=== PATIENT | female | born 1950 | race Caucasian/White ===

== ENCOUNTER → 2018-03-03 08:59 | Outpatient (CLI) | payer MEDICARE, OTHER, SELFPAY ==
--- NOTE | 2018-03-03 09:04 | BI_ITS ---
MAMMOGRAPHY - BILATERAL SCREENING REASON FOR EXAM: Female, 67 years old. Routine annual screening examination. PERTINENT HISTORY: Aunt with breast cancer. TECHNIQUE: Digital bilateral breast mary (3D mammographic acquisition) in the CC and MLO projections. 2-D mediolateral oblique (MLO) and craniocaudad (CC) views of both breasts were obtained. CAD: Full Field Digital Mammography with Computer Added Detection was performed. COMPARISON: Comparison is made with prior study dated February 24, 2017 and February 24, 2016. FINDINGS: Breast Composition: The breasts are heterogeneously dense, which may obscure small masses. There are no dominant masses or suspicious calcifications. Stable benign-appearing bilateral axillary lymph nodes. Stable 3.4 mm well-defined nodule in the upper lateral portion of the left breast. No other significant abnormalities are identified. There has been no significant change since the prior study. BI/SCREENING MAMM (CAD), BILAT IMPRESSION: Stable bilateral screening mammogram. Yearly follow-up mammogram recommended. (A) ASSESSMENT CATEGORY: BIRADS Category 2: Benign. A letter regarding these results will be sent to the patient by the facility within 30 days. Approximately 10% of breast cancers are not detected by mammography. A normal mammogram should not delay biopsy of a clinically suspicious abnormality. [id number] Electronically Signed: Ru Hogue MD at 10:45 EDT Tel [phone], Service support ,
== END ==
PROVIDERS: Family Provider Internal Medicine; PCP Internal Medicine; Visit Provider Internal Medicine
DX: Z12.31 Encounter for screening mammogram for malignant neoplasm of breast (principal)
CPT/HCPCS: 77063; 77067

== ENCOUNTER 2018-06-17 14:03 | Inpatient (IN) | payer MEDICARE, OTHER, SELFPAY ==
[2018-06-17] VITALS (11 sets, daily range): BP systolic 135–156; BP diastolic 61–91; PULSE 58–90; RESP 14–25; TEMP 36.5–36.8; O2SAT 96–100; BMI 28.1; BMI 27.0
--- NOTE | 2018-06-17 14:30 | EKG12_ITS ---
Test Reason : SYCOPE Blood Pressure : / mmHG Vent. Rate : 070 BPM Atrial Rate : 070 BPM P-R Int : 140 ms QRS Dur : 074 ms QT Int : 326 ms P-R-T Axes : 069 031 072 degrees QTc Int : 352 ms Normal sinus rhythm ST & T wave abnormality, consider inferolateral ischemia Abnormal ECG Confirmed by MYLENE VALERIO ([id number]), graphics editor SATYA SEO ([id number]) on 06/21/2018 2:25:25 PM Referred By: BRIDGET Confirmed By:MYLENE VALERIO
--- NOTE | 2018-06-17 14:32 | ED.VISSUMM ---
- ER Visit Summary Date of Service: 06/17/18 Chief Complaint: Weakness History of Present Illness: The patient is a 67 F who complains of weakness all over. She states it started today. She did have an episode yesterday. She was standing in the yard and felt very weak and collapsed. She woke up this morning was able to do some physical activity started to get worse. She denies any other symptoms except extreme fatigue. She now has some lower abdominal pain. She denies any dysuria. She has a mild headache at this time. Did not feel diaphoretic. No chest pain or shortness of breath. Does not feel like it is hard to breathe. No focal weakness, paresthesias. No vision changes. Physical Examination: Vital signs reviewed. HEENT exam unremarkable. Heart is regular rate and rhythm without murmurs. Lungs are clear to auscultation. Abdomen is soft and nontender. Extremities reveal no edema. Skin exam normal. Neurologic exam shows she is alert and oriented ?2. She does not know the month. Her NIH is 1 for the same Test Results: EKG is sinus rhythm with rate 70. Labs are all normal. Chest x-ray reveals chronic changes. CT scan of the head per my interpretation reveals no acute findings. Radiology read is pending Emergency Department Course and Treatment: The patient has slow speech I am not quite sure what this is about. I think we need to rule out stroke is a possibility. The PCP agrees with this. Patient was discussed with the hospitalist for admission. Patient will be started on aspirin as she does not take one at home Treatment Plan: [] Disposition: Admit Impression: Weakness, slow speech This note was generated with Guroo dictation software. It may contain incorrect words, spelling, and punctuation that were not noted in review of the chart prior to signing ED Disposition - Plan for ED Patient: Chief Complaint: Weakness Referrals: May Caldwell DO [Primary Care Provider] -
[2018-06-17 14:55] LABS: Absolute Lymphocyte Count 2.06 X10^3/ul (0.83-4.51); Absolute Neutrophil Count 6.1 X10^3/uL (2.0-7.7); Basophil# 0.04 X10^3/uL; Basophil% 0.4 % (0-1); Eosinophil# 0.14 X10^3/uL; Eosinophils% 1.6 % (0-5); Hematocrit 41.7 % (37-47); Hemoglobin 14.3 g/dl (12.0-15.0); Lymphocyte # 2.06 X10^3/ul (4.0); Lymphocyte % 23.1 % (19-41); Mean Corp Hgb Conc 34.3 g/gl (32-36); Mean Corpuscular Hgb 30.1 pg (27.0-32.0); Mean Corpuscular Volume 87.8 fL (81-99); Mean Platelet Vol. 10.9 fl (6.2-12.0); Monocyte# 0.57 X10^3/uL; Monocyte% 6.4 % (0-10); Neutrophil # 6.11 X10^3/uL (2.7-7.7); Neutrophil % 68.4 % (47-70); Platelet Count 219 K/mm3 (150-450); RBC Distribution Width CV 13.6 % (11.6-14.6); RBC Distribution Width SD 43.5 fl (35.1-43.9); Red Blood Count 4.75 M/mm3 (4.2-5.4); White Blood Count 8.9 K/mm3 (4.4-11.0)
[2018-06-17 15:00] LABS: POSITIVE COUNT NO; POSITIVE DIFFERENTIAL NO; POSITIVE MORPHOLOGY NO
[2018-06-17 15:01] LABS: Partial Thromboplast Time 27.2 Seconds (24.1-36.2); Prothrombin Time (Protime)PT. 12.9 SECONDS (11.7-14.9)
[2018-06-17 15:12] LABS: Anion Gap 13 (5-15); BUN 15 mg/dL (7-18); BUN/Creat Ratio 16.4 RATIO (10-20); Calcium,Total 10.2 mg/dL (8.5-10.1); Chloride 107 mmol/L (98-107); Creatinine, Serum 0.91 mg/dL (0.55-1.02); EST Glomerular Filtration Rate 65 mL/min (>60); Est Glom Filt Rate - Afr Amer 78 mL/min (>60); Estimated Creatinine Clearance 50.38 ml/min; Glucose 98 mg/dL (74-106); Potassium 3.1 mmol/L (3.5-5.1); Sodium Level 141 mmol/L (136-145)
[2018-06-17 16:01] LABS: Bedside Glucose 85 mg/dL (70-110)
--- NOTE | 2018-06-17 16:51 | NURSING ---
PCU R/O STROKE KOTSONIS
[2018-06-17] MEDS: Aspirin 325 MG Tablet PO (17:15)
--- NOTE | 2018-06-17 20:20 | PCM.HP.STD ---
Problem List (1) HTN (hypertension) Status: Chronic (2) HLD (hyperlipidemia) Status: Chronic (3) Weakness Status: Acute (4) Aphasia Status: Acute (5) Hypokalemia Status: Acute History of Present Illness Date of Admission: 06/17/18 Chief Complaint: Weakness and aphasia The patient is a 67 year old F with a h/o significant for HTn and HLD presenting today from her PCP office for aphasia and weakness. She states that yesterday she was working in the yard and felt weak and almost passed out. She went to bed and woke up this morning and felt ok but then around 10 am she felt, weak, unsteady and likeleverything was processing in slow motion. She went to her PCP office around 1 pm and he told her to go to the ER. In the ER she had only an NIH of [address] head was normal. She currently feel well and almost back to her baseline. Past Medical History Past Medical History (Chronic Problems): Chronic Problems HTN (hypertension) (Chronic) HLD (hyperlipidemia) (Chronic) Allergies No Known Allergies Allergy (Verified 06/17/18 14:07) Home Medications: Ambulatory Orders Medication Instructions Recorded Amlodipine [Norvasc] 5 mg PO DAILY 06/17/18 Ascorbic Acid [Vitamin C] 1,000 mg PO DAILY 06/17/18 Calcium Carbonate [Calcium] 500 mg PO DAILY 06/17/18 Cholecalciferol (Vitamin D3) 2,000 unit PO DAILY 06/17/18 [Vitamin D3] Co Q10 200 [Co Q-10] 100 mg PO DAILY 06/17/18 Ibuprofen 200 mg PO PRN PRN 06/17/18 Lactobacillus Combination No.4 1 cap PO DAILY 06/17/18 [Probiotic] Rosuvastatin Calcium [Crestor] 5 mg PO QHS 06/17/18 Triamcinolone Acetonide [Nasacort 1 spray NASAL DAILY 06/17/18 Aq Nasal [place]] Vitamin E 100 unit PO DAILY 06/17/18 Lives: Spouse/ Significant Other Smoking Status: Never smoker Alcohol: None Drugs: None Review of Systems Constitutional: Reports: Weakness. Denies: Chills, Fever, Weight Change HEENT: Denies: Head Aches, Sinus Congestion, Sinus Drainage Cardiovascular: Denies: Chest Pain, Palpitations Respiratory: Denies: Cough, Shortness of breath at rest, Sputum production Gastrointestinal: Denies: Abdominal Pain, Nausea, Vomiting Genitourinary: Denies: Dysuria Musculoskeletal: Denies: Joint Pain, Joint Tenderness Skin: Denies: Rash, Wounds Neurological: Reports: - - slow mentation. Denies: Focal weakness, Numbness, Tingling Psychiatric: Denies: Anxiety, Depression Hematologic/ Lymphatic: Denies: Easy Bruising, Easy Bleeding VTE Information - Inpt Only VTE Present on Admission: No Patient Problems: Active and Suspected Problems Weakness (Acute) Aphasia (Acute) Hypokalemia (Acute) - Physical Exam General: Alert, Oriented x3, Cooperative, No apparent distress HEENT: Atraumatic, EOMI, Normocephalic Oral: Moist Mucosa Neck: Supple, No JVD Lungs: Clear to auscultation, Normal air movement, No rhonchi, No wheeze, No rales Cardiovascular: Regular rate, Regular Rhythm, Normal S1, Normal S2, No murmurs Abdomen: Soft, Non Tender, Non-Distended, No Hepato-splenomegaly Extremities: No edema, Capillary Refill Less than 3 Seconds Skin: No rashes, No breakdown Neurological: Cranial nerves II-XII grossly intact, Motor Exam 5/5 strength throughout, Sensory exam intact to light touch and pain Psych/Mental Status: Normal Affect, Appropriate Vital Signs Temp Pulse Resp BP Pulse Ox 97.7 F L 59 L 16 153/67 H 97 06/17/18 17:37 06/17/18 17:52 06/17/18 17:37 06/17/18 17:37 06/17/18 19:55 Oxygen Delivery Method Room Air Weight: 157 lb 6.561 oz Body Mass Index (BMI) 27.0 Intake and Output for Last 24 Hours 06/15/18 06/16/18 06/17/18 23:59 23:59 23:59 Intake Total 480 / 480 Balance 480 / 480 Assessment/Plan All Active Problems Weakness (Acute) Aphasia (Acute) Hypokalemia (Acute) 1. Weakness/Aphasia (resolved)/HTN/HLD - Will obtain an MRI in the morning as well as an echo - She is on crestor 5 mg at home, no formulary so will start lipitor 80 and she can be discharged on the higher dose of crestor - Start aspirin - Lipid panel pending - PT/OT consulted - Further recs, depending on the MRI and echo 2. Hypokalemia - 3.1 will give 60 meq tonight DVT: Heparin BID Diet: Cardiac Code Visit Inpatient E&M: 52903 Init Hosp L2
[2018-06-17] MEDS: Heparin Injection (Vial) 5,000 UNIT/ML VIAL 5000 UNIT SC (21:16)
[2018-06-17] MEDS: Atorvastatin Calcium 80 MG Tablet PO (21:16)
[2018-06-18] VITALS (7 sets, daily range): BP systolic 130–133; BP diastolic 68–71; PULSE 53–82; RESP 16–18; TEMP 36.7–36.8; O2SAT 95–99; BMI 27.0
[2018-06-18] MEDS: Ibuprofen 200 MG Tablet PO (00:56)
[2018-06-18 06:48] LABS: Absolute Lymphocyte Count 2.03 X10^3/ul (0.83-4.51); Absolute Neutrophil Count 2.5 X10^3/uL (2.0-7.7); Basophil# 0.04 X10^3/uL; Basophil% 0.7 % (0-1); Eosinophils% 5.4 % (0-5); Hematocrit 38.3 % (37-47); Hemoglobin 13.1 g/dl (12.0-15.0); Lymphocyte # 2.03 X10^3/ul (4.0); Lymphocyte % 36.7 % (19-41); Mean Corp Hgb Conc 34.2 g/gl (32-36); Mean Corpuscular Hgb 30.5 pg (27.0-32.0); Mean Corpuscular Volume 89.3 fL (81-99); Mean Platelet Vol. 11.3 fl (6.2-12.0); Monocyte# 0.64 X10^3/uL; Monocyte% 11.6 % (0-10); Neutrophil # 2.51 X10^3/uL (2.7-7.7); Neutrophil % 45.4 % (47-70); Platelet Count 209 K/mm3 (150-450); RBC Distribution Width CV 14.1 % (11.6-14.6); RBC Distribution Width SD 45.7 fl (35.1-43.9); Red Blood Count 4.29 M/mm3 (4.2-5.4); White Blood Count 5.5 K/mm3 (4.4-11.0)
[2018-06-18 06:50] LABS: POSITIVE COUNT NO; POSITIVE DIFFERENTIAL NO; POSITIVE MORPHOLOGY NO
[2018-06-18 07:22] LABS: Anion Gap 9 (5-15); BUN 14 mg/dL (7-18); BUN/Creat Ratio 19.2 RATIO (10-20); Calcium,Total 8.4 mg/dL (8.5-10.1); Chloride 109 mmol/L (98-107); Cholesterol 177 mg/dL (200); Creatinine, Serum 0.73 mg/dL (0.55-1.02); EST Glomerular Filtration Rate 84 mL/min (>60); Est Glom Filt Rate - Afr Amer 101 mL/min (>60); Estimated Creatinine Clearance 45.85 ml/min; Glucose 90 mg/dL (74-106); High Density Lipoprotein 52 mg/dL; Potassium 3.8 mmol/L (3.5-5.1); Sodium Level 143 mmol/L (136-145); Triglycerides 144 mg/dL; Very Low Density Lipoprotein 29 mg/dL (5-40)
[2018-06-18] MEDS: Ascorbic Acid 500 MG Tablet 1000 MG PO (09:07)
[2018-06-18] MEDS: Calcium (Elemental) 500 MG Tablet PO (09:08)
[2018-06-18] MEDS: Aspirin 81 MG TAB.CHEW PO (09:08)
[2018-06-18] MEDS: Heparin Injection (Vial) 5,000 UNIT/ML VIAL 5000 UNIT SC (09:08)
--- NOTE | 2018-06-18 11:06 | CASEMGMT ---
CM INITIAL ASSESSMENT: Home: Patient lives in a one story home with her . HHS/Aides: Denies current or past services. DME: Denies Home Oxygen: Denies Pharmacy: [facility] Advance Directives: , Justino Cano, is medical POA. Patient states these documents are on file. PCP: May Caldwell Specialists: Cries DC Plan: Home, no needs anticipated.
--- NOTE | 2018-06-18 13:00 | PCM.PN.HOSP ---
Subjective: Patient was seen and examined. No new complains. Denies any chest pain, dizziness or SOB. nO acute events on telemetry. Vitals/I&O's: Vital Signs Temp Pulse Resp BP Pulse Ox 98.3 F 63 16 132/71 H 99 06/18/18 08:00 06/18/18 10:55 06/18/18 08:00 06/18/18 08:00 06/18/18 08:00 Oxygen Delivery Method Room Air Weight: 71.4 kg Body Mass Index (BMI) 27.0 Intake and Output for Last 24 Hours 06/16/18 06/17/18 06/18/18 23:59 23:59 23:59 Intake Total 480 / 480 1300 / 1300 Balance 480 / 480 1300 / 1300 General: Alert, Oriented x3, Cooperative, No apparent distress HEENT: Atraumatic, PERRLA, EOMI, Normocephalic Oral: Moist Mucosa Neck: Supple, No JVD, Negative Carotid Bruits Lungs: Clear to auscultation, Normal air movement Cardiovascular: Regular rate, Regular Rhythm, Normal S1, Normal S2, No murmurs Abdomen: Bowel Sounds Present, Soft, Non Tender, Non-Distended, No Hepato-splenomegaly Extremities: No edema, Capillary Refill Less than 3 Seconds Skin: No rashes, No breakdown Musculoskeletal: No Tenderness to Palpation of Joints or Extremities Neurological: Cranial nerves II-XII grossly intact Psych/Mental Status: Normal Affect, Appropriate Laboratory Results 06/18/18 06:14: WBC 5.5, RBC 4.29, Hgb 13.1, Hct 38.3, MCV 89.3, MCH 30.5, MCHC 34.2, RDW 14.1, RDW Differential 45.7 H, Plt Count 209, MPV 11.3, Immature Gran % (Auto) 0.200, Neut % (Auto) 45.4 L, Lymph % (Auto) 36.7, Elliott % (Auto) 11.6 H, Eos % (Auto) 5.4 H, Baso % (Auto) 0.7, Absolute Neuts (auto) 2.5, Absolute Lymphs (auto) 2.03, Total Counted Not Reportable 06/18/18 06:14: Sodium 143, Potassium 3.8, Chloride 109 H, Carbon Dioxide 25.0, Anion Gap 9, BUN 14, Creatinine 0.73, Estim Creat Clear Calc 45.85, Est GFR (MDRD) Af Amer 101, Est GFR (MDRD) Non-Af 84, BUN/Creatinine Ratio 19.2, Glucose 90, Calcium 8.4 L, Triglycerides 144, Cholesterol 177, LDL Cholesterol 96, VLDL Cholesterol 29, HDL Cholesterol 52 Current Medications Ascorbic Acid (Vitamin C) 1,000 mg PO DAILY [facility] Last Admin: 06/18/18 09:07 Dose: 1,000 mg Aspirin (Aspirin, Baby) 81 mg PO DAILY@0800 [facility] Last Admin: 06/18/18 09:08 Dose: 81 mg Atorvastatin Calcium (Lipitor) 80 mg PO QHS [facility] Last Admin: 06/17/18 21:16 Dose: 80 mg Calcium Carbonate (Os-Navarro 500) 500 mg PO DAILYCM [facility] Last Admin: 06/18/18 09:08 Dose: 500 mg Cholecalciferol (Vitamin D) 2,000 unit PO DAILY [facility] Last Admin: 06/18/18 09:07 Dose: 2,000 unit Fluticasone Propionate (Flonase Nasal [place]) 1 spray NASAL DAILY [facility] Last Admin: 06/18/18 09:08 Dose: Not Given Heparin Sodium (Porcine) (Heparin Na) 5,000 unit SC Q12 [facility] Last Admin: 06/18/18 09:08 Dose: 5,000 unit Ibuprofen (Motrin) 200 mg PO Q4H PRN PRN PRN Reason: PAIN Last Admin: 06/18/18 00:56 Dose: 200 mg Lactobacillus Acidophilus (Acidophilus) 1 tablet PO DAILY [facility] Last Admin: 06/18/18 09:07 Dose: 1 tablet Magnesium Hydroxide (Milk Of Magnesia) 30 ml PO DAILY PRN PRN Reason: Constipation Sodium Chloride () 5 - 30 ml IV UD PRN PRN Reason: SALINE FLUSH Medical Necessity - Tobacco Use Smoking Status: Never smoker Assessment/Plan All Active Problems Weakness (Acute) Aphasia (Acute) Hypokalemia (Acute) 1. Syncope, aphasia, acute stroke ruled out with MRI, 2D echo unremarkable, patient will be discharged on aspirin, will get a 30 day event monitor to follow-up with cardiology, Dr. Johnson 2. Hypokalemia, replace, recheck in the outpatient 3. Hypertension, controlled, continue home medication 4. Hyperlipidemia, on statin 5. DVT PPx - On heparin SC Code Visit Inpatient E&M: 92438 Subs Hosp L2
--- NOTE | 2018-06-18 13:28 | PCM.DC ---
- Discharge Diagnoses Current Active Problems: Current Active and Chronic Problems HTN (hypertension) (Chronic) HLD (hyperlipidemia) (Chronic) Weakness (Acute) Aphasia (Acute) Hypokalemia (Acute) You will use the following diet at home:: Cardiac Your food should be the consistency of: Regular Your liquids should be the consistency of: Regular/Thin Discharge Activity: Return to Normal Activity Additional Instructions: You will be discharged with a 30 day event monitor. You should follow-up with Dr. Johnson in 2-4 weeks. You will need repeat blood work in 1 week. Follow-up with your PCP within 1-2 weeks. Continue to keep yourself hydrated. You can take a baby aspirin 81 mg a day for primary stroke prevention. Keep being active and follow a heart healthy diet. Allergies/Adverse Reactions: Allergies No Known Allergies Allergy (Verified 06/17/18 14:07) Medications to take at Discharge Amlodipine [Norvasc] 5 mg PO DAILY 06/17/18 Ascorbic Acid [Vitamin C] 1,000 mg PO DAILY 06/17/18 Calcium Carbonate [Calcium] 500 mg PO DAILY 06/17/18 Cholecalciferol (Vitamin D3) [Vitamin D3] 2,000 unit PO DAILY 06/17/18 Co Q10 200 [Co Q-10] 100 mg PO DAILY 06/17/18 Ibuprofen 200 mg PO PRN PRN 06/17/18 Lactobacillus Combination No.4 [Probiotic] 1 cap PO DAILY 06/17/18 Rosuvastatin Calcium [Crestor] 5 mg PO QHS 06/17/18 Triamcinolone Acetonide [Nasacort Aq Nasal [place]] 1 spray NASAL DAILY 06/17/18 Vitamin E 100 unit PO DAILY 06/17/18 Primary Care Physician: May Caldwell DO [Primary Care Provider] - Please follow up with your Primary Care Physician in: within 2 weeks Test Results: Test results from this visit will be discussed in further detail at your follow-up appointment, if applicable. Please Follow Up With: Eduardo Johnson MD When: in 2-4 weeks Proposed Discharge Date: 06/18/18
--- NOTE | 2018-06-18 13:35 | PCM.DC.SUM ---
Discharge Date and Diagnosis Date of Admission: 06/17/18 Date of Discharge: 06/18/18 - Primary Discharge Diagnosis Active and Suspected Problems Weakness (Acute) Aphasia (Acute) Hypokalemia (Acute) Syncope - Secondary Discharge Diagnosis Chronic Problems HTN (hypertension) (Chronic) HLD (hyperlipidemia) (Chronic) Hospital Course and Treatment Imaging Results: Clinical Impression(s) from Imaging Studies Brain CT 06/17/18 14:30 IMPRESSION: No acute intracranial or calvarial abnormality. Electronically Signed: Steven Queen DO at 16:53 EDT Tel [phone], Service support , Chest X-Ray 06/17/18 15:32 IMPRESSION: No acute cardiopulmonary disease or interval change. Electronically Signed: Steven Queen DO at 16:05 EDT Tel [phone], Service support , Brain MRI 06/17/18 17:27 IMPRESSION: No evidence of infarct or hemorrhage. Electronically Signed: Obinna Squires MD at 0:34 EDT Tel , Service support , None Operations: None Procedures: 2-D Echocardiogram Summary of Care Provided: The patient is a 67 year old F with past medical history of hypertension, hyperlipidemia, admitted on 06/17/2018 from her primary care office with increasing weakness. Patient had had a syncopal episode a day before admission. She was standing outside and observing her and son work in the garden. She is said to have passed out for a few minutes. She woke up feeling weak. Rested for the rest of the day. The next day, she woke up and felt weak and unsteady and felt like everything was being processed in slow motion. She went to see her primary care doctor later in the afternoon and was asked to go to the emergency room. In the emergency room her NIH SS was 1, CT scan was negative. Patient was admitted to telemetry bed and monitored with no acute events. MRI of the brain was negative. 2D echo was unremarkable. Patient's repeat blood work showed replaced potassium. Patient was discharged with a 30 day event monitor which was placed on 06/20/2018 to follow-up with Dr. Johnson to read( per patient's request). Discharge Diet: Low fat/ Low Cholesterol, 2000 mg Sodium Diet Discharge Activity: Return to Normal Activity Home Medications: Medications to take at Discharge Amlodipine [Norvasc] 5 mg PO DAILY 06/17/18 Ascorbic Acid [Vitamin C] 1,000 mg PO DAILY 06/17/18 Calcium Carbonate [Calcium] 500 mg PO DAILY 06/17/18 Cholecalciferol (Vitamin D3) [Vitamin D3] 2,000 unit PO DAILY 06/17/18 Co Q10 200 [Co Q-10] 100 mg PO DAILY 06/17/18 Ibuprofen 200 mg PO PRN PRN 06/17/18 Lactobacillus Combination No.4 [Probiotic] 1 cap PO DAILY 06/17/18 Rosuvastatin Calcium [Crestor] 5 mg PO QHS 06/17/18 Triamcinolone Acetonide [Nasacort Aq Nasal [place]] 1 spray NASAL DAILY 06/17/18 Vitamin E 100 unit PO DAILY 06/17/18 Other Amb Orders: Cardiac Holter Monitor, Set-Up [[facility]] Location: None Selected Primary Care Physician: May Caldwell DO [Primary Care Provider] - Please follow up with your Primary Care Physician in: within 2 weeks Please Follow Up With: Eduardo Johnson MD When: in 2-4 weeks Disposition: Home Minutes spent on discharge:: 40 Patient Condition:: Stable Medical Necessity - Tobacco Use Smoking Status: Never smoker Meaningful Use Info Meaningful Use Diagnoses (Choose all that apply): None applicable Code Visit OBSV E&M: 97896 Observation care discharge
== END 2018-06-18 14:06 | disposition home or self-care (01) | DRG 948 ==
LOC: ED 15:19 → PCU 17:14
PROVIDERS: Admitting Provider Family Medicine; Emergency Provider Emergency Medicine; Family Provider Internal Medicine; PCP Internal Medicine; Visit Provider Internal Medicine
DX: R53.1 Weakness (principal); R47.01 Aphasia; I10 Essential (primary) hypertension; E78.5 Hyperlipidemia, unspecified; E87.6 Hypokalemia; R55 Syncope and collapse
CPT/HCPCS: 36415; 70450; 70551; 71045; 80048; 80061; 82962; 84484; 85025; 85610; 85730; 92523; 93005; 93306; 99285; J7030; A4216

== ENCOUNTER → 2018-06-24 12:50 | Outpatient (CLI) | payer MEDICARE, OTHER, SELFPAY | PROVIDERS: Family Provider Internal Medicine; PCP Internal Medicine; Visit Provider Internal Medicine | DX: L74.9 Eccrine sweat disorder, unspecified (principal) ==

== ENCOUNTER → 2018-06-30 10:05 | Outpatient (CLI) | payer MEDICARE, OTHER, SELFPAY ==
--- NOTE | 2018-06-30 10:10 | MRI_ITS ---
STUDY: MRI BRAIN WITH CONTRAST REASON FOR EXAM: Female, 67 years old. syncope; follow up to non contrast mri. TECHNIQUE: Standardized multiplanar fat and water weighted pulse sequences were obtained. 7 ml of Gadavist contrast material was administered intravenously for the contrast portion of the examination. COMPARISON: June 17, 2018 FINDINGS: Normal size of the ventricles and extra-axial spaces for the patient's age. Normal white matter tracts of the supratentorial brain. Normal bilateral basal ganglia. Normal thalami. There is no extra-axial fluid accumulation. Normal midbrain, joel and medulla. Normal cerebellum. Normal basal cisterns. MRI/Brain WITH Contrast IMPRESSION: Unremarkable enhanced MRI of the brain. Electronically Signed: Belén Pa MD at 10:25 EDT Tel , Service support ,
== END ==
PROVIDERS: Family Provider Internal Medicine; PCP Internal Medicine; Visit Provider Internal Medicine
DX: R55 Syncope and collapse (principal)
CPT/HCPCS: 70552; A9585

== ENCOUNTER → 2018-08-18 12:39 | Outpatient (CLI) | payer MEDICARE, OTHER, SELFPAY ==
--- NOTE | 2018-08-18 12:42 | BD_ITS ---
STUDY: DUAL ENERGY X-RAY ABSORPTIOMETRY / DXA REASON FOR EXAM: Female, 67 years old. The patient is postmenopausal. Loss of height. TECHNIQUE: Bone Mineral Density (BMD) measurements of lumbar spine and bilateral hips were obtained. COMPARISON: Comparison is made with prior study dated August 04, 2016. FINDINGS: Lumbar Spine (L1-L4): g/cm2 (1.075) / T-score (-0.9) / Z-score (0.8) Findings are suggestive of normal bone density with a low fracture risk. Left Femur Total: g/cm2 (0.781) / T-score (-1.8) / Z-score (-0.3) Left Femoral Neck: g/cm2 (0.786) / T-score (-1.8) / Z-score (-0.1) Right Femur Total: g/cm2 (0.753) / T-score (-2.0) / Z-score (-0.6) Right Femoral Neck: g/cm2 (0.754) / T-score (-2.0) / Z-score (-0.4) The T-Scores on the most recent prior examination were: Lumbar Spine (L1-L4): There has been worsening of bone density since the previous examination. Left Femur Total: which represents a worsening of 0.4%. Right Femur Total: which represents a worsening of 3.3%. BD/Dexa Bone Density Study IMPRESSION: The patient is considered osteopenic as outlined below according to World Yoni Organization (WHO) criteria with a moderate fracture risk. There has been worsening of bone density since the previous examination. Reference Information: The T-score is the number of standard deviations above or below the standard which is normal for young adults at their peak bone mineral density. The World Health Organization (WHO) interprets the T-scores as follows: Above -1 Normal bone density Between -1 and -2.5 Osteopenia Equal to / or below -2.5 Osteoporosis As a practical clinical guideline, osteopenia may be graded as follows: Mild -1 through -1.5 Moderate -1.6 through -2.0 Severe -2.1 through -2.4 The Z-score is the number of standard deviations above or below age-matched controls. A Z-score of less than -1.5 would be considered abnormal. References: 1. NIH Osteoporosis and Related Bone Diseases http://www.osteo.org 2. International Society for Clinical Densitometry http://www.iscd.org 3. National Osteoporosis Foundation http://www.nof.org Electronically Signed: Ru Hogue MD at 12:26 EST Tel [phone], Service support ,
== END ==
PROVIDERS: Family Provider Internal Medicine; PCP Internal Medicine; Referring Provider Internal Medicine; Visit Provider Internal Medicine
DX: Z78.0 Asymptomatic menopausal state (principal)
CPT/HCPCS: 77080

== ENCOUNTER → 2018-12-21 06:58 | Outpatient (CLI) | payer MEDICARE, OTHER, SELFPAY ==
--- NOTE | 2018-12-21 07:03 | CT_ITS ---
STUDY: CT ABDOMEN AND PELVIS WITH CONTRAST REASON FOR EXAM: Female, 68 years old. Abdominal pain RADIATION DOSAGE (If Supplied By Facility): CTDIvol = ( 14.21 ) mGy, DLP = ( 881.39 ) mGycm TECHNIQUE: Transaxial images were obtained from the dome of the diaphragm to the symphysis pubis without oral contrast. Isovue 300 100 IV/Oral was administered. Sagittal and coronal images were reconstructed. Individualized dose optimization techniques were used for this CT. COMPARISON: None. FINDINGS: The visualized lung bases are unremarkable. The visualized portions of the heart are within normal limits. Normal liver. There has been a cholecystectomy. The bile ducts are slightly dilated. Normal spleen. Normal pancreas. Normal bilateral adrenal glands. Normal right kidney. Normal left kidney. Normal visualized stomach. Normal small intestine. There is moderate stool throughout the colon. There is NO evidence of colitis or diverticulitis or bowel obstruction. The appendix is not identified. There is diffuse atherosclerotic calcification of the abdominal aorta, without a demonstrated aneurysm. Normal inferior vena cava. Normal retroperitoneum. Normal urinary bladder. Uterus is atrophic. There is NO ascites or free air, abscess or adenopathy. Normal abdominal wall. There are hemangiomas in L1 and L4. CT/Abdomen/Pelvis WITH Contrast IMPRESSION: There has been a cholecystectomy. The bile ducts are slightly dilated. There is moderate stool throughout the colon. There is NO evidence of colitis or diverticulitis or bowel obstruction. The appendix is not identified. There is diffuse atherosclerotic calcification of the abdominal aorta, without a demonstrated aneurysm. Uterus is atrophic. There is NO ascites or free air, abscess or adenopathy. Electronically Signed: Gulshan Roberts MD at 7:30 EDT , Service support ,
[2018-12-21 07:15] LABS: CREATININE FINGERSTICK 1.2 mg/dL (0.55-1.02)
== END ==
PROVIDERS: Family Provider Internal Medicine; PCP Internal Medicine; Referring Provider Internal Medicine; Visit Provider Internal Medicine
DX: R10.32 Left lower quadrant pain (principal)
CPT/HCPCS: 74177; Q9967

== ENCOUNTER 2019-01-27 10:00 | Outpatient (RCR) | payer MEDICARE, OTHER, SELFPAY ==
--- NOTE | 2019-01-03 12:00 | HP.PTEVAL ---
Patient's Visit Information MALLORY TORRES is a 68 year old F referred to Physical Therapy by May Keith DO with a diagnosis of THORACIC SPINE RADICULOPATHY. Date of Evaluation: 01/03/19 Physical Therapist: Laurita Onofre PT, Cert MDT - Visit Plan Frequency: 2-3x /Week Duration: 4-6 Weeks Plan: LEFT THORACIC AND/OR LUMBAR US NEEDED. POSTURE CORRECTION/STRENGTHENING, INSTRUCTION IN APPROPRIATE BODY MECHANICS AND ACTIVITY MODIFICATIONS. DLS STARTING WITH A NEUTRAL SPINE PROGRESSING ROM TOLERATED. COLETTE LE ROM, STRETCHING AND STRENGTHENING. HEP INSTRUCTION. PATIENT DOES NOT WANT TO CONSIDER AQUATIC THERAPY AT THIS TIME. - Subjective Findings: Work/Leisure: RETIRED. 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 Disability: NO. Present symptoms: SOME COLETTE LOW BACK PAIN. LEFT FLANK PAIN IS CHEIF COMPLAINT. ENTIRE ABDOMEN AT BEGINNING. BETTER NOW. Present since: ABOUT SEP 2018. Pain Scale: LEFT FLANK: WORST 4/10, LEAST 1/10. LOW BACK PAIN: WORST 5/10, LEAST 0/10. Currently: LEFT FLANK: 1/10. LOW BACK: 0/10. Commenced as a result of: NO APPARENT REASON. Symptoms at onset: WHOLE ABDOMEN. Worse: RIGHT SIDE LYING. Better: CHANGE POSITION, SOMETIMES A HOT SHOWER. Disturbed sleep: YES - ONLY ABLE TO LIE ON LEFT SIDE. Previous history/Previous treatment: H/O SIMILAR SYPTOMS ABOUT A YEAR AGO BUT LESS INTENSE AND SHORTER IN DURATION. DX'D WITH HIATIAL HERNIA BASED ON X-RAY AT THAT TIME INCIDENTALLY PER PATIENT REPORT. OTHERWISE X-RAY WAS NEGATIVE A YEAR AGO. LAST TIME AND THIS TIME THE SYMPTOMS SEEMED TO GET BETTER ON THEIR OWN WITHOUT ANY TREATMENT (NOT EVEN MEDICINE). ASSUMED MAYBE JUST STRAINED SOMETHING. Coughing/sneezing/straining: SOMETIMES STRAINING. Gait: NORMAL. Difficulty initiating urinatin: NO. Accidents: NO. Unexplained weight loss: NO. Imaging: CAT SCAN OF ABDOMEN AND PELVIS 12/21/18 - NORMAL - SEE [facility] EMR. LUMBAR AND THORACIC X-RAYS IN 2017 SHOWING SOME DEGENERATIVE CHANGES. PMH: FIBROMYALGIA, HIGH CHOLESTEROL, HTN, H/O LOW BACK PAIN AND COLETTE LE SCIATICA. Recent major surgery: NO. PLOF (Prior Level of Function): ABLE TO LIE ON RIGHT SIDE. OTHER: PATIENT REPORTS DR. KEITH TOLD HER SHE HAS ARTHRITIS IN THE THORACIC AREA OF THE SPINE AND DDD PINCHING THE NERVES RADIATING PAIN INTO THIS AREA. PATIENT REPORTS SHE DOESN'T KNOW HOW TO SEPARATE HER FIBROMYALGIA SYMPTOMS FROM THIS NEW THING. PATIENT REPORTS DR. KEITH SAID SHE NEEDS TO GO THROUGH THERAPY THEN AN MRI WOULD BE APPROVED. - Objective Sitting/Standing Posture: POOR. SLOUCHED WITH FORWARD HEAD AND ROUNDED SHOULDERS. NO TORTICOLLIS. NORMAL KYPHOSIS. Lordosis: REDUCED. Lateral shift: NO. Relevant shift: N/A. Correction of posture: BETTER. Other Observations: INDEP GAIT INTO PT WITHOUT ANY ASSISTIVE DEVICES, LOB OR GROSS DEVIATIONS NOTED. Motor deficit: COLETTE UE'S AND LE'S WFL WITH MILD WEAKNESS IN HIPS AND SHOULDERS. Sensory deficit: NO. ROM deficit: COLETTE UE'S AND LE'S WFL. Reflexes: COLETTE UE'S AND LE'S 2/3. Dural Signs: NEGATIVE COLETTE UE'S AND LE'S. Lumbar mvmt loss: flex - NIL. ext - MOD. R SG - MIN. L SG - MOD. PATIENT C/O INCREASED LEFT FLANK PAIN WITH LEFT SG TESTING. CERVICAL MVMT LOSS: Flex: NIL. Pro: NIL. Ext: MOD. Ret: MOD. RSB: MIN. LSB: MIN. R Rot: MIN. L Rot: MOD. PATIENT WITHOUT C/O INCREASED PAIN WITH CERVICAL ROM TESTING ALL PLANES. Core strength: POOR - Goals Goal 1:: DECREASE C/O LEFT FLANK AND LOW BACK PAIN. Goal Time Frame: 4-6 Weeks Goal 2:: IMPROVE RIGHT SDLY, PERSONAL CARE, LIFTING, SLEEP AND STANDING FUNCTION Goal Time Frame: 4-6 Weeks Goal 3:: INSTRUCT IN PROPHYLAXIS Goal Time Frame: 4-6 Weeks - Rehabilitation Potential Rehabilitation Potential: Good - Anticipated Interventions Patient/Client Instruction: Educate patient on: Condition, Plan of Care, Risk Factors, Benefits of Fitness Program For the Purpose of:: To improve self management Therapeutic Exercise to Include: Strength training, Body mechanics, Postural training, Active ROM, Dynamic Lumbar Stabilization, Scapular Strength/Stabilization For the Purpose of:: To decrease pain, To increase ROM, To improve muscle performance and motor function, To increase tolerance to activity/condition/position, To improve ability of physical actions for home/community/work/leisure Manual Therapy Techniques to Include: Mobilization, Soft tissue mobilization Comment: NEEDED/INDICATED For the Purpose of:: To decrease pain, To increase ROM Cryotherapy (ice pack, ice massage): Yes Thermo therapy (hot pack): Yes Ultrasound (thermal/non thermal): Yes For the Purpose of:: To decrease pain, To decrease swelling/inflammation, To increase ROM, To improve nutrient delivery to tissue Thank you for the opportunity to evaluate your patient. For Medicare and Medicare HMO plans, please review the plan of care and approve it. It will need to be FAXED BACK to us at [phone] for Medicare purposes. For Medicare only, by signing this I certify the plan of care. Please let me know if there are questions or concerns regarding this plan of care. Physician Signature: Date:
--- NOTE | 2019-01-27 10:50 | HP.PTDCSUM_ITS ---
HP - PT D/C Summary It has been my pleasure to treat MALLORY TORRES under orders from May Keith DO, for the diagnosis of THORACIC SPINE RADICULOPATHY for a total of 10 visit(s). Discharge Date: Please see the following information for a summary of their discharge status. - Subjective Subjective: PATIENT REPORTS SHE HAS BEEN PAINFREE FOR TWO AND A HALF DAYS NOW. REPORTS SHE DOES NOT PLAN TO GET A MEMBERSHIP ANYWHERE AT THIS TIME THE WEATHER IS GETTING NICER NOW. - Pain left thoracic/abdominal area Pain Intensity (Out of 10): 1 LEFT LOW BACK Pain Intensity (Out of 10): 0 ABDOMEN Pain Intensity (Out of 10): 0 - Overall Improvement % Improvement: 98 - Objective Objective/Function: ALL GOALS MET. PATIENT IS PAINFREE AND INDEP WITH A HOME PROGRAM. Lumbar mvmt loss: flex - NIL. ext - MOD. R SG - NIL. L SG - MIN. PATIENT DENIES PAIN WITH ROM TESTING OF LUMBAR ALL PLANES. CERVICAL MVMT LOSS: Flex: NIL. Pro: NIL. Ext: MOD. Ret: MOD. RSB: MIN. LSB: MIN. R Rot: MIN. L Rot: MIN. PATIENT WITHOUT C/O INCREASED PAIN WITH CERVICAL ROM TESTING ALL PLANES. Thoracic mvmt loss: RIGHT ROT - MIN. LEFT ROT - MIN. PATIENT DENIES PAIN WITH THORACIC TESTING. - Goals Goal 1:: DECREASE C/O LEFT FLANK AND LOW BACK PAIN. Goal Progress: Goal Met Goal 2:: IMPROVE RIGHT SDLY, PERSONAL CARE, LIFTING, SLEEP AND STANDING FUNCTION Goal Progress: Goal Met Goal 3:: INSTRUCT IN PROPHYLAXIS Goal Progress: Goal Met - Plan Plan: D/C. PATIENT IS RELUCTANT BUT AGREEABLE TO D/C STATING COMING MOTIVATES H ER TO CONTINUE THE EX'S. I LET HE KNOW THAT SHE CAN COME BACK ANY TIME IF NEEDED AND TO CONTRACT DR. KEITH NEEDED IF HER PAIN RETURNS. - D/C Information If there are questions or concerns regarding this patient's physical therapy, please feel free to call me at [phone]. Thank you for the referral of this patient. Sincerely, Laurita Onofre, PT, Cert MDT
== END 2019-01-27 19:00 | disposition home or self-care (01) ==
LOC: PT 10:00
PROVIDERS: Family Provider Internal Medicine; PCP Internal Medicine; Referring Provider Internal Medicine; Visit Provider Internal Medicine
DX: M54.14 Radiculopathy, thoracic region (principal)
CPT/HCPCS: 97035; 97110; 97162; 97530

== ENCOUNTER → 2019-03-31 12:06 | Outpatient (CLI) | payer MEDICARE, OTHER, SELFPAY ==
--- NOTE | 2019-03-31 12:10 | BI_ITS ---
MAMMOGRAPHY - BILATERAL SCREENING 3-D TOMOSYNTHESIS REASON FOR EXAM: Female, 68 years old. Bilateral Screening 3-D tomosynthesis PERTINENT HISTORY: History of bilateral breast aspirations. TECHNIQUE: 2-D mammograms and 3-D Tomosynthesis of the breast (s) were performed. CAD was performed. COMPARISON: March 03, 2018 FINDINGS: The breast composition is almost entirely fat. Scattered benign calcifications are seen. No dense spiculated masses or suspicious microcalcifications are identified. No architectural distortion is identified. There is no skin thickening or retraction. Stable lymph nodes. There has been no significant change since the prior study. BI/SCREEN MAMM (CAD) W/ED BILAT IMPRESSION: No mammographic signs of malignancy. Routine yearly mammograms recommended. ASSESSMENT CATEGORY: BIRADS Category 2: Benign. A letter regarding these results will be sent to the patient by the facility within 30 days. FOLLOW UP RECOMMENDATION: Yearly follow up mammogram recommended. (A) Approximately 10% of breast cancers are not detected by mammography. A normal mammogram should not delay biopsy of a clinically suspicious abnormality. Electronically Signed: Arun Agustin MD at 16:09 EDT , Service support ,
== END ==
PROVIDERS: Family Provider Internal Medicine; PCP Internal Medicine; Referring Provider Internal Medicine; Visit Provider Internal Medicine
DX: Z12.31 Encounter for screening mammogram for malignant neoplasm of breast (principal)
CPT/HCPCS: 77063; 77067

== ENCOUNTER → 2019-09-28 06:27 | Outpatient (CLI) | payer MEDICARE, OTHER, SELFPAY ==
--- NOTE | 2019-09-28 09:29 | STRESSREP ---
Stress Test Report Date: 09-28-19 Procedure: Exercise tolerance test/imaging study Indications: Chest pain Consent: Per the patient Procedure: The patient exercised on a Victor Hugo protocol for 4 minutes completing Stage I and 1 minute of Stage II achieving a peak heart rate of 144 bpm (96 % predicted maximal heart rate) with a peak blood pressure 168/88 mmHg and a peak MET capacity of 6 METs. The baseline ECG demonstrated normal sinus rhythm. The peak exercise ECG demonstrated 0.5 to 1.[address] segment depression in leads II, III, and V4 through V6 with resolution towards baseline beginning by 1 minute in recovery. There was a rare PAC during recovery. The functional capacity was considered decreased. There was notation of chest discomfort at peak exercise with shortness of breath with subsequent spontaneous resolution in recovery. The examination was discontinued secondary to chest discomfort and shortness of breath. Impression: 1. Technically adequate (percent predicted maximal heart rate greater than 85%) exercise tolerance test 2. Peak exercise ECG with 0.5 to 1.[address] segment depression in leads II, III, and V4 through V6 with resolution towards baseline beginning by 1 minute in recovery 3. There was a rare PAC during recovery 4. Nuclear images pending Myocardial perfusion imaging study: Technique: The patient was injected with 11.0 mCi of technetium 99m Cardiolite and subsequently rest SPECT Cardiolite nuclear imaging was obtained in the horizontal long, vertical long, and short axis views. The patient exercised on a Victor Hugo protocol for 4 minutes completing Stage I and 1 minute of Stage II achieving a peak heart rate of 144 bpm (96 % predicted maximal heart rate) with a peak blood pressure 168/88 mmHg and a peak MET capacity of 6 METs. The patient was injected with 33.0 mCi of technetium 99m Cardiolite and subsequently stress SPECT Cardiolite nuclear imaging was obtained in the horizontal long, vertical long, and short axis views. A gated Cardiolite study at peak stress was obtained. Interpretation: Rest and stress SPECT Cardiolite nuclear imaging status post realignment, normalization, and attenuation correction, demonstrates the appearance of relative uniform tracer uptake and myocardial perfusion appearing within normal limits. There is end systolic thickening and brightening. The gated Cardiolite study demonstrates myocardial thickening and inward wall motion. The reported LVEF is 82 %. Impression: 1. Rest and stress SPECT Cardiolite nuclear imaging demonstrate relative uniform tracer uptake and myocardial perfusion appearing within normal limits. 2. The gated Cardiolite study reports an LVEF of 82 %. This note was generated with [employer]ation software. It may contain incorrect words, spelling, and punctuation that were not noted in checking the note before signing.
== END ==
PROVIDERS: Family Provider Internal Medicine; PCP Internal Medicine; Referring Provider Internal Medicine; Visit Provider Internal Medicine
DX: R07.9 Chest pain, unspecified (principal)
CPT/HCPCS: 78452; 93017; A9500; A4216

== ENCOUNTER 2019-12-08 08:47 | Day surgery (SDC) | payer MEDICARE, OTHER, SELFPAY ==
[2019-12-01 10:35] VITALS: BMI 31.1
--- NOTE | 2019-12-01 12:24 | RAD_ITS ---
STUDY: X-RAY CHEST REASON FOR EXAM: Female, 69 years old. SOB, chest pain TECHNIQUE: PA and lateral views of the chest. COMPARISON: 06/17/2018 FINDINGS: The lungs are clear and expanded. There is no demonstrated pleural abnormality. Normal size heart. Normal mediastinum and tao. Normal visualized pulmonary arteries. There is atherosclerotic tortuosity of the aortic arch and descending thoracic aorta. There is demineralization of the osseous structures. Normal visualized ribs, clavicles, and shoulders. There is no demonstrated abnormality of the visualized soft tissue structures of the upper abdomen. RAD/Chest PA and Lateral IMPRESSION: 1. Stable, nonacute x-ray examination of the chest. Electronically Signed: Rodney Pena MD ([place]) at 15:31 EST , Service support ,
[2019-12-01 13:29] LABS: International Normalized Ratio 1.1; Prothrombin Time (Protime)PT. 13.5 SECONDS (11.7-14.9)
[2019-12-01 13:30] LABS: Partial Thromboplast Time 26.8 Seconds (24.1-36.2)
[2019-12-01 13:38] LABS: Absolute Lymphocyte Count 1.47 X10^3/uL (0.83-4.51); Absolute Neutrophil Count 4.8 X10^3/uL (2.0-7.7); Basophil# 0.06 X10^3/uL; Basophil% 0.9 % (0-1); Eosinophil# 0.15 X10^3/uL; Eosinophils% 2.1 % (0-5); Hematocrit 40.7 % (37-47); Hemoglobin 13.4 g/dL (12.0-15.0); Lymphocyte # 1.47 X10^3/ul (4.0); Lymphocyte % 20.9 % (19-41); Mean Corp Hgb Conc 32.9 g/dL (32-36); Mean Corpuscular Hgb 29.8 pg (27.0-32.0); Mean Corpuscular Volume 90.4 fL (81-99); Mean Platelet Vol. 11.4 fl (6.2-12.0); Monocyte# 0.51 X10^3/uL; Monocyte% 7.3 % (0-10); NRBC Flagged by Analyzer 0 % (0-5); Neutrophil # 4.81 X10^3/uL (2.7-7.7); Neutrophil % 68.5 % (47-70); Platelet Count 231 K/mm3 (150-450); RBC Distribution Width CV 13.6 % (11.6-14.6); RBC Distribution Width SD 45.4 fl (35.1-43.9)
[2019-12-01 13:40] LABS: Anion Gap 5 (5-15); BUN 18 mg/dL (7-18); BUN/Creat Ratio 22.2 RATIO (10-20); Calcium,Total 9.3 mg/dL (8.5-10.1); Chloride 109 mmol/L (98-107); Creatinine, Serum 0.81 mg/dL (0.55-1.02); EST Glomerular Filtration Rate 74 mL/min (>60); Est Glom Filt Rate - Afr Amer 89 mL/min (>60); Glucose 99 mg/dL (74-106); Potassium 3.8 mmol/L (3.5-5.1); Sodium Level 142 mmol/L (136-145)
[2019-12-07 07:16] VITALS: BMI 30.9
--- NOTE | 2019-12-08 07:49 | HP.PCM_ITS ---
<Dom Pacheco - Last Filed: 12/08/19 07:49> History and Physical Date of Admission: 12/08/19 Details: MALLORY TORRES, is a 69 year old white female who presents to the [facility] today for left heart catheterization d/t concerns of an episode of chest pain and dyspnea. As you recall, the patient has a previous history of during a hot humid day, while standing outside working family members perform some physical chores she began to feel very weak. She summoned them for help. They helped her down and subsequently into her home. She states that she does not believe she lost consciousness as she heard her family members present. Her stated he placed his hand on her in order to arouse her. She states she remembers that happening. She does not recall, other than feeling warm, having associated nausea, emesis, or becoming markedly diaphoretic. Again she states she does not believe she lost consciousness. She rested for several hours, 8, and felt better. The next day she felt better, was performing her household activities, and then later on did not feel as well. She was encouraged by her family to present to her primary care physician for evaluation. She was evaluated. There was concerns of her weakness and altered speech. Thus there were concerns as to whether or not she may have experienced a TIA/CVA event. She was then taken to [facility] for further evaluation. She underwent laboratory studies, an ECG which was reported as demonstrating sinus rhythm, a chest x-ray which reportedly demonstrated no acute changes, and a brain CT which reportedly demonstrated no acute intracranial pathology. She subsequently underwent a brain MRI which demonstrated no evidence of infarct or hemorrhage. She also had a transthoracic echocardiogram performed. Her left ventricle was thought to be normal with an LVEF of 65%. She was noted to have trivial TR, and estimated RV systolic pressure of 30 mmHg, stage I diastolic dysfunction, and a negative contrast study for right to left interatrial shunt. She was subsequently released from the hospital wearing a 30-day ambulatory event monitor. Her event monitor recordings available for review at this time have been reviewed. He demonstrates sinus rhythm. There were is reports of less than 1% PACs/PVCs. There have been no documented symptomatic events or reports of other dysrhythmias thus far. She has had no other testing. She has continued her medication for concerns of her hypertension and her hyperlipidemia. Based upon concerns of chest discomfort she has recently undergone evaluation with an exercise tolerance test/imaging study. This was performed in September 2019. The results are as noted below. She continues to complain of chest discomfort. She states she will have a chest discomfort as she points to her left chest area. It is more of a dull discomfort. This can occur at rest or with exertion. She does not necessarily complain of radiation to the jaw, neck, shoulder, or upper extremity area. However she states that time she has discomfort between my shoulder blades . She also feels more short of breath and dyspneic with activity than at rest. 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 She has had no orthopnea or PND or peripheral pitting edema. There is been no near syncope or syncope. Her ECG today demonstrated sinus rhythm with poor R wave progression. She brings with her a copy of her lipid labs from August 2019. At that time her total cholesterol is 193 with an LDL of 113 and an HDL of 50. Her triglycerides were 148. 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 Required: No Accompanied by: Allergies duloxetine [From Cymbalta] Adverse Reaction (Intermediate, Verified 12/01/19 10:36) groggy,fatigue Medications See EMR [facility] Medical History Essential hypertension (Chronic) Syncope (Resolved) Fibromyalgia (Chronic) Surgical History History of appendectomy (Resolved) History of cholecystectomy (Resolved) Family History Mother Myocardial infarction, Onset Age: 56 Heart valve replaced Father CAD (coronary artery disease) History of coronary artery bypass surgery Cancer Prostate Brother Hypertension Brother Hypertension Social History (Updated 12/01/19 @ 11:[address] Eduardo Johnson MD) Smoking Status: Never smoker alcohol intake: never substance use type: does not use ROS Const Const: Positive for fatigue (continues) and weakness; negative for frequent falls, excessive sweating, weight gain or weight loss Eyes Eyes: Negative for transient loss of vision, blurry vision or change in vision ENT ENT: Positive for balance problems (slight); negative for dizziness Cardio Chest Pain: Yes Character: other (mild) Onset: at rest, exercise Location: left chest Duration: minutes Palpitations: No Edema: None Muscle aches with walking: None Resp Respiratory: Positive for SOB with activity (new); negative for SOB at rest GI GI: Negative vomiting or vomiting blood/hematemesis : Negative for hematuria Musc Musc: Positive for balance problems (slight); negative for muscle aches/ myalgia, muscle weakness or joint pain Skin Skin: Negative non-healing lesions or rash Neuro Neuro: Positive for weakness; negative for dizziness, lightheadedness, orthostatic symptoms, frequent falls or blurry vision David Hematologic/Lymphatic: Negative for easy bleeding Endo Endo: Positive for fatigue (continues); negative for excessive sweating Psych Psych: Negative for anxiety or depression Allergy Allergy/Immunology: Negative for hives, Negative for rash Cardiology Exam Const Appearance: cooperative, healthy appearing, comfortable, no acute distress, well developed and well groomed Nutritional Appearance: well nourished and obese Orientation: alert, awake and oriented x3 Head Head: normal to inspection, normocephalic and atraumatic Ears: hearing grossly normal bilaterally Nose: external nose normal Face and Sinus: face symmetric Mouth: oral mucosae normal Eyes Eyelids: eyelids normal Conjunctivae: conjunctivae normal Pupils: PERRL EOM: EOM intact bilaterally Neck Neck: normal visual inspection, full ROM and no JVD Carotids: normal carotid upstroke Chest Chest inspection: normal inspection of the chest, symmetric chest movement and normal respiratory effort; negative cough Auscultation: Bilateral: Clear to Auscultation Cardio Rate: regular rate Rhythm: regular rhythm Heart sounds: S1 normal and S2 normal; negative rub, gallop or murmur GI GI: normal to inspection, soft, bowel sounds present and obese Neuro General: alert, awake, oriented x3 and moves all extremities Skin Skin: no rashes or lesions noted Extremities Pulses: Normal: Right Posterior Tibial Pulse, Left Posterior Tibial Pulse, Right Radial Pulse, Left Radial Pulse Lower Extremity Edema: None: Bilateral Psych Psychological: normal affect Assessment & Plan 1. Chest pain, unspecified type R07.9 Plan She does have chest discomfort. It is precordial. There is some potential radiation to the interscapular area. It is unclear whether this is cardiac versus noncardiac. Her recent noninvasive studies were reviewed. She did appear to have diminished functional capacity on her treadmill and subtle ST segment changes/abnormalities on the ECG portion of her treadmill. Her nuclear images appear to be unremarkable. There is concern based upon her cardiovascular risk factors and her symptoms as to whether or not she may have a false negative myocardial perfusion scan. As she continues with concerning symptoms with no other explanation thus far consideration for further definitive evaluation of her coronary anatomy was discussed with diagnostic cardiac catheterization. The procedure and risks were discussed with her. She was agreeable to this approach. 2. Dyspnea on exertion R06.09 Plan She does seem to get more dyspneic than one might anticipate after walking on a level surface especially without carrying any heavy objects, etc. She tends to blame this on her age. However there is concern as noted above whether there is still an underlying cardiovascular etiology to explain it. From a cardiac standpoint she will continue her evaluation. This will include her diagnostic cardiac catheterization to evaluate for any obvious CAD that may contribute to her symptoms. If this is unremarkable then she may need further pulmonary evaluation. 3. Hyperlipidemia, unspecified hyperlipidemia type E78.5 Plan Her lipid labs are as noted above. She will continue medical management and follow-up as deemed appropriate. 4. Essential hypertension I10 Plan Her blood pressures appear to be reasonably well controlled at this time. She will continue medical therapy and follow-up. 5. Syncope, unspecified syncope type R55 Plan She states she has had no further syncopal events from the time of her previous event. She will continue to observe for any concerns. The meantime she will continue evaluation care as noted above. Additional Comments The above was discussed with the patient and her . They were agreeable to this approach. Thank you for allowing me to participate in the care of your patient. Please don't hesitate to call if any issues arise. This note was generated using a voice recognition system and there may be incorrect words, spelling or punctuation that were not noted when reviewing the office note prior to saving. Supplemental Info Supplemental Information Transthoracic echocardiogram: 06/17/2018 Interpretation Summary The estimated ejection fraction is 65 %. Stage 1 diastolic dysfunction. Bubble contrast study negative for right to left interatrial shunt. Trivial tricuspid valve insufficiency. Right ventricular systolic pressure estimated to be 30 mmHg. There is no comparison study available. Stress Test Report Date: 09-28-19 Procedure: Exercise tolerance test/imaging study Indications: Chest pain Consent: Per the patient Procedure: The patient exercised on a Victor Hugo protocol for 4 minutes completing Stage I and 1 minute of Stage II achieving a peak heart rate of 144 bpm (96 % predicted maximal heart rate) with a peak blood pressure 168/88 mmHg and a peak MET capacity of 6 METs. The baseline ECG demonstrated normal sinus rhythm. The peak exercise ECG demonstrated 0.5 to 1.[address] segment depression in leads II, III, and V4 through V6 with resolution towards baseline beginning by 1 minute in recovery. There was a rare PAC during recovery. The functional capacity was considered decreased. There was notation of chest discomfort at peak exercise with shortness of breath with subsequent spontaneous resolution in recovery. The examination was discontinued secondary to chest discomfort and shortness of breath. Impression: 1. Technically adequate (percent predicted maximal heart rate greater than 85%) exercise tolerance test 2. Peak exercise ECG with 0.5 to 1.[address] segment depression in leads II, III, and V4 through V6 with resolution towards baseline beginning by 1 minute in recovery 3. There was a rare PAC during recovery 4. Nuclear images pending Myocardial perfusion imaging study: Technique: The patient was injected with 11.0 mCi of technetium 99m Cardiolite and subsequently rest SPECT Cardiolite nuclear imaging was obtained in the horizontal long, vertical long, and short axis views. The patient exercised on a Victor Hugo protocol for 4 minutes completing Stage I and 1 minute of Stage II achieving a peak heart rate of 144 bpm (96 % predicted maximal heart rate) with a peak blood pressure 168/88 mmHg and a peak MET capacity of 6 METs. The patient was injected with 33.0 mCi of technetium 99m Cardiolite and subsequently stress SPECT Cardiolite nuclear imaging was obtained in the horizontal long, vertical long, and short axis views. A gated Cardiolite study at peak stress was obtained. Interpretation: Rest and stress SPECT Cardiolite nuclear imaging status post realignment, normalization, and attenuation correction, demonstrates the appearance of relative uniform tracer uptake and myocardial perfusion appearing within normal limits. There is end systolic thickening and brightening. The gated Cardiolite study demonstrates myocardial thickening and inward wall motion. The reported LVEF is 82 %. Impression: 1. Rest and stress SPECT Cardiolite nuclear imaging demonstrate relative uniform tracer uptake and myocardial perfusion appearing within normal limits. 2. The gated Cardiolite study reports an LVEF of 82 %. Labs LDL Cholesterol 96 mg/dL (0-130) 06/18/18 HDL Cholesterol 52 mg/dL (40-) 06/18/18 Triglycerides 144 mg/dL (-199) 06/18/18 VLDL Cholesterol 29 mg/dL (5-40) 06/18/18 Diagnostics Electrocardiogram 12/01/19 Echocardiogram 06/17/18 Stress Test Nuclear Medicine 09/28/19 Stress Test 09/28/19 Chest X-Ray 06/17/18 <Eduardo Johnson - Last Filed: 12/08/19 11:13> History and Physical I have re-examined the patient. There are no clinical changes since date of exam.
--- NOTE | 2019-12-08 12:12 | CL.D_ITS ---
Patient Name: MALLORY TORRES Study Date: 12/08/2019 Performing: Eduardo Johnson MD Ht: 62.99 inches 160 cm : 1950 Wt: 174.17 lbs 79 kg Age: 69 Gender: female BSA: 1.82 PROCEDURE(S) PERFORMED [id number]-SHU/COR/LV CLINICAL PROFILE AND INDICATIONS Indications: Suspected CAD Heart Failure: None Stress/Imaging Date: 09/28/2019Stress Test with SPECT MPI: Indeterminant Angina Classification Anginal Classification w/in 2 Weeks: CCS III CAD Presentations: Other: Chest pain CONCLUSIONS Elevated Left Ventricular End Diastolic Pressure Normal LV size, wall motion,and systolic function LVEF: by LV gram 65 % Normal coronary arteries RECOMMENDATIONS Risk factor modification Medical therapy DESCRIPTION OF PROCEDURE The patient arrived to the procedure lab. The risks and benefits of the procedure as well as a full d escription of our services here and current unavailability of surgical backup were fully explained to the patient and/or their significant other prior to the catheterization. The Timeout was completed, verifying the correct patient and procedure. The patient's procedural site was prepped and draped in the usual fashion. Local anesthetic was given subcutaneously to right radial region with Lidocaine 2% . Using a modified Seldinger technique, arterial access was obtained via the right radial artery, a 6 Fr sheath was inserted. Left Coronary Artery selective angiography was performed in multiple views u sing a 5 Fr. 4.0 Roland catheter. Right Coronary Artery selective angiography was then performed in mu ltiple views using a 5 Fr. 4.0 Roland catheter. Left Ventriculography was performed in CURRAN projection using a 5 Fr. Pigtail catheter. LV to AO pullback pressures were then recorded.The arterial sheath was pulled and a TR Band was applied for hemostasis-10 cc air CORONARY ANGIOGRAPHY DOMINANCE: Right Dominant LEFT HEART ASSESSMENT Left Ventricular Ejection Fraction: by LV Gram 65 % Normal LV wall motion Elevated Left Ventricular End Diastolic Pressure LVEDP: 23 mmHg LEFT MAIN: Angiographically normal LEFT ANTERIOR DESCENDING ARTERY: Angiographically normal CIRCUMFLEX ARTERY: Angiographically normal RIGHT CORONARY ARTERY: Angiographically normal AORTIC ROOT: Angiographically normal COMPLICATIONS No Complications PROCEDURE MEDICATIONS Fentanyl 50 mcg IV Versed 1 mg IV Oxygen: 2 L/min via nasal cannula Heparin diluted in 23cc Heparinized saline. Patient given 10cc IA of this solution. 12/08/2019 11:14: 15 Verapamil 2.5mg, Ntg 100mcgs, 2000 units of Heparin diluted in 23cc Heparinized saline. Patient give n 10cc IA of this solution. 12/08/2019 11:14:15 SUMMARY OF HEMODYNAMIC DATA Time AIR REST ECG 09:06:23 AO 151/74 (107) SA 11:29:28 LV 163/-15, 22 11:34:31 LV 162/-15, 23 11:34:38 LV 170/-15, 24 11:35:55 LVp 172/-13, 25 11:36:01 AOp 171/82 (122) 11:36:06 Signed By Eduardo Johnson MD On 12/08/2019 12:12:05 Eduardo Johnson MD
== END 2019-12-08 13:15 | disposition home or self-care (01) ==
LOC: CLSP 08:48
PROVIDERS: PCP Internal Medicine; Referring Provider Internal Medicine Cardiovascular Disease; Visit Provider Internal Medicine Cardiovascular Disease
DX: R07.9 Chest pain, unspecified (principal); R06.09 Other forms of dyspnea; E78.5 Hyperlipidemia, unspecified; I10 Essential (primary) hypertension; R55 Syncope and collapse; M79.7 Fibromyalgia
CPT/HCPCS: 36415; 71046; 80048; 85025; 85610; 85730; 93458; J7040; Q9967; C1769; C1894

== ENCOUNTER → 2020-04-01 12:48 | Outpatient (CLI) | payer MEDICARE, OTHER, SELFPAY ==
[2019-12-07 07:16] VITALS: BMI 30.9
--- NOTE | 2020-04-01 12:50 | BI_ITS ---
MAMMOGRAPHY - BILATERAL SCREENING 3-D TOMOSYNTHESIS REASON FOR EXAM: Female, 69 years old. Routine screening PERTINENT HISTORY: FM HX 2 MAT AUNTS 70''S, BILAT ASPIRATIONS 1969''S, BILAT MOLES MARKED, PT HAS COCAS RASH IMF BILAT. TECHNIQUE: 2-D mammograms and 3-D Tomosynthesis of the breast (s) were performed. CAD was performed. COMPARISON: 03/31/2019 FINDINGS: The breast composition is composed of scattered fibroglandular density. Scattered benign calcifications are seen. No dense spiculated masses or suspicious microcalcifications are identified. No architectural distortion is identified. There is no skin thickening or retraction. There has been no significant change since the prior study. BI/SCREEN MAMM (CAD) W/ED BILAT IMPRESSION: No mammographic signs of malignancy. Routine yearly mammograms recommended. ASSESSMENT CATEGORY: BIRADS Category 2: Benign. A letter regarding these results will be sent to the patient by the facility within 30 days. FOLLOW UP RECOMMENDATION: Yearly follow up mammogram recommended. (A) Approximately 10% of breast cancers are not detected by mammography. A normal mammogram should not delay biopsy of a clinically suspicious abnormality. Electronically Signed: Mohsen Phipps MD at 14:07 EDT , Service support ,
== END ==
PROVIDERS: PCP Internal Medicine; Referring Provider Internal Medicine; Visit Provider Internal Medicine
DX: Z12.31 Encounter for screening mammogram for malignant neoplasm of breast (principal)
CPT/HCPCS: 77063; 77067

== ENCOUNTER → 2020-08-20 09:45 | Outpatient (CLI) | payer MEDICARE, OTHER, SELFPAY ==
[2019-12-07 07:16] VITALS: BMI 30.9
--- NOTE | 2020-08-20 09:50 | BD_ITS ---
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 COMPARISON: Comparison is made with prior study dated 08/18/2018. FINDINGS: Lumbar Spine (L1-L4): g/cm2 (0.999) / T-score (-1.4) / Z-score (0.3) Findings are suggestive of osteopenia with a low fracture risk. Left Femur Total: g/cm2 (0.749) / T-score (-2.1) / Z-score (-0.5) Left Femoral Neck: g/cm2 (0.736) / T-score (-2.2) / Z-score (-0.4) Right Femur Total: g/cm2 (0.747) / T-score (-2.1) / Z-score (-0.5) Right Femoral Neck: g/cm2 (0.755) / T-score (-2.0) / Z-score (-0.3) The T-Scores on the most recent prior examination were: Lumbar Spine (L1-L4): There has been worsening of bone density since the previous examination. Left Femur Total: which represents a worsening of 4.1%. Right Femur Total: which represents a worsening of 0.8%. BD/Dexa Bone Density Study IMPRESSION: The patient is considered osteopenic as outlined below according to World Yoni Organization (WHO) criteria with a high fracture risk. There has been worsening of bone density since the previous examination. Reference Information: The T-score is the number of standard deviations above or below the standard which is normal for young adults at their peak bone mineral density. The World Health Organization (WHO) interprets the T-scores as follows: Above -1 Normal bone density Between -1 and -2.5 Osteopenia Equal to / or below -2.5 Osteoporosis As a practical clinical guideline, osteopenia may be graded as follows: Mild -1 through -1.5 Moderate -1.6 through -2.0 Severe -2.1 through -2.4 The Z-score is the number of standard deviations above or below age-matched controls. A Z-score of less than -1.5 would be considered abnormal. References: 1. NIH Osteoporosis and Related Bone Diseases www osteo.org 2. International Society for Clinical Densitometry www iscd.org 3. National Osteoporosis Foundation www nof.org Electronically Signed: Ru Hogue, at 12:28 EST , Service support ,
== END ==
PROVIDERS: PCP Internal Medicine; Referring Provider Internal Medicine; Visit Provider Internal Medicine
DX: Z78.0 Asymptomatic menopausal state (principal)
CPT/HCPCS: 77080

== ENCOUNTER 2020-10-22 09:00 | Outpatient (RCR) | payer MEDICARE, OTHER, SELFPAY ==
[2020-10-22 12:04] VITALS: BMI 28.3
== END 2020-10-22 23:59 ==
LOC: IMMUN 09:00
PROVIDERS: PCP Internal Medicine; Visit Provider Family Medicine
DX: Z23 Encounter for immunization (principal)
CPT/HCPCS: 0011A; 0012A; 91301

== ENCOUNTER 2020-10-22 12:04 | Emergency (ER) | payer MEDICARE, OTHER, SELFPAY ==
[2019-12-07 07:16] VITALS: BMI 30.9
[2020-10-22 12:04] VITALS: BP 155/89; PULSE 75; RESP 16; TEMP 36.4; O2SAT 99; BMI 28.3
--- NOTE | 2020-10-22 12:23 | ED.VIS.GEN ---
History of Present Illness Chief Complaint: Dizziness Informant: Patient Narrative: 70-year-old female presenting for evaluation of shakiness and hot flash which is now resolved. She states this started about 1030. Patient did receive her first dose of the Covid?19 vaccine this morning. She believes she is having a mild reaction to this. She denies chest pain, palpitations, shortness of breath. She did not have any symptoms prior to her vaccination. She is been tested twice for Covid?19 and these were negative. - Past Medical History (1) Essential hypertension Status: Chronic (2) HLD (hyperlipidemia) Status: Chronic Past Medical History - Allergies and Home Meds Allergies/Adverse Reactions: Allergies duloxetine [From Cymbalta] Adverse Reaction (Intermediate, Verified 10/22/20 12:07) groggy,fatigue Primary Care Physician: May Caldwell DO [Primary Care Provider] - Prior records reviewed: Yes Past Medical History: - - Reviewed in problem list Surgical History: noncontributory Lives: Spouse/ Significant Other Smoking Status: Never smoker Alcohol: None Drugs: None Review of Systems General: Reports: Chills, Malaise. Denies: Fever Eyes: Denies: Visual changes - bilaterally, Diplopia ENT: Denies: Rhinorrhea, Sore throat Cardiovascular: Denies: Chest pain, Palpitations Respiratory: Denies: Dyspnea, Cough, Dyspnea on exertion Gastrointestinal: Denies: Abdominal pain, Nausea, Vomiting, Diarrhea, Melena, Hematochezia Genitourinary: Denies: Dysuria, Hematuria, Frequency Musculoskeletal: Denies: Myalgias, Arthralgias Skin: Denies: Rash, Wounds Neurological: Denies: Headache, Weakness, Numbness Psych: Denies: Depression, Anxiety, Suicidal thoughts, Suicidal ideations, -, - Physical Exam Vital Signs/Narrative: Vital Signs Temp Pulse Resp BP Pulse Ox 10/22/20 12:04 97.5 F L 75 16 155/89 H 99 General: Well nourished, No Acute Distress Head: Normocephalic, Atraumatic Eyes: Perrl, EOMI ENT: Moist mucous membranes, No rhinorrhea Cardiovascular: Regular rate, Regular rhythm Respiratory: No distress, CTA bilaterally Extremities: Nontender, No edema Skin: Normal color, No rash. Negative for: Cyanosis, Diaphoresis Neurological: Alert, Oriented x3, Cranial nerves II-XII grossly intact Psychological: Normal affect, Normal Mood Diagnostic/Tx/Re-eval Laboratory Data 10/22/20 10/22/20 12:31 12:31 WBC 7.4 RBC 4.37 Hgb 12.8 Hct 39.1 MCV 89.5 MCH 29.3 MCHC 32.7 RDW Std Deviation 45.2 H RDW Coeff of Vlad 13.7 Plt Count 236 MPV 10.9 Immature Gran % (Auto) 0.400 Neut % (Auto) 68.2 Lymph % (Auto) 20.9 [place] % (Auto) 6.1 Eos % (Auto) 3.5 Baso % (Auto) 0.9 Absolute Neuts (auto) 5.1 Absolute Lymphs (auto) 1.55 Nucleated RBC % 0 Sodium 140 Potassium 3.5 Chloride 107 Carbon Dioxide 28.0 Anion Gap 5 BUN 16 Creatinine 0.69 Estim Creat Clear Calc 42.07 Est GFR (MDRD) Af Amer 107 Est GFR (MDRD) Non-Af 88 BUN/Creatinine Ratio 23.1 H Glucose 94 Calcium 9.1 - Medical Decision Making 1-year-old female presenting for evaluation of possible reaction to Covid?19 vaccination at [facility]. She states that this started about an hour after injection. She states she feels shaky. Initially she had a hot flash which resolved. She has no sign of anaphylaxis. Patient was monitored in the ED with improvement of her symptoms. She was given IV fluids. CBC and BMP are normal. Patient was counseled to rest at home. She is given return precautions. Impression: 1. Medication side effect ED Disposition - Plan for ED Patient: Disposition: Home or Assisted Living Instructions: ED Drug Reaction, Other Referrals: May Caldwell DO [Primary Care Provider] -
[2020-10-22 12:44] LABS: Absolute Lymphocyte Count 1.55 X10^3/uL (0.83-4.51); Absolute Neutrophil Count 5.1 X10^3/uL (2.0-7.7); Basophil# 0.07 X10^3/uL; Basophil% 0.9 % (0-1); Eosinophil# 0.26 X10^3/uL; Eosinophils% 3.5 % (0-5); Hematocrit 39.1 % (37-47); Hemoglobin 12.8 g/dL (12.0-15.0); Lymphocyte # 1.55 X10^3/ul (4.0); Lymphocyte % 20.9 % (19-41); Mean Corp Hgb Conc 32.7 g/dL (32-36); Mean Corpuscular Hgb 29.3 pg (27.0-32.0); Mean Corpuscular Volume 89.5 fL (81-99); Mean Platelet Vol. 10.9 fl (6.2-12.0); Monocyte# 0.45 X10^3/uL; Monocyte% 6.1 % (0-10); NRBC Flagged by Analyzer 0 % (0-5); Neutrophil # 5.06 X10^3/uL (2.7-7.7); Neutrophil % 68.2 % (47-70); Platelet Count 236 K/mm3 (150-450); RBC Distribution Width CV 13.7 % (11.6-14.6); RBC Distribution Width SD 45.2 fl (35.1-43.9); Red Blood Count 4.37 M/mm3 (4.2-5.4); White Blood Count 7.4 K/mm3 (4.4-11.0)
[2020-10-22 12:58] LABS: Anion Gap 5 (5-15); BUN 16 mg/dL (7-18); BUN/Creat Ratio 23.1 RATIO (10-20); Calcium,Total 9.1 mg/dL (8.5-10.1); Chloride 107 mmol/L (98-107); Creatinine, Serum 0.69 mg/dL (0.55-1.02); EST Glomerular Filtration Rate 88 mL/min (>60); Est Glom Filt Rate - Afr Amer 107 mL/min (>60); Estimated Creatinine Clearance 42.07 ml/min; Glucose 94 mg/dL (74-106); Potassium 3.5 mmol/L (3.5-5.1); Sodium Level 140 mmol/L (136-145)
== END 2020-10-22 14:04 | disposition home or self-care (01) ==
PROVIDERS: Emergency Provider Student in an Organized Health Care Education/Training Program; PCP Internal Medicine
DX: R23.2 Flushing (principal); R25.8 Other abnormal involuntary movements; T50.B95A Adverse effect of other viral vaccines, initial encounter; Y92.9 Unspecified place or not applicable; I10 Essential (primary) hypertension; E78.5 Hyperlipidemia, unspecified; Z79.82 Long term (current) use of aspirin; Z79.899 Other long term (current) drug therapy
CPT/HCPCS: 80048; 85025; 96360; 99283; J7040

== ENCOUNTER → 2020-11-01 09:45 | Outpatient (CLI) | payer MEDICARE, OTHER, SELFPAY ==
[2020-10-22 12:04] VITALS: BMI 28.3
--- NOTE | 2020-11-01 09:48 | RAD_ITS ---
STUDY: X-RAY - ESOPHAGUS (BARIUM SWALLOW) STUDY: X-RAY - ESOPHAGUS (BARIUM SWALLOW) WITH FLUOROSCOPY REASON FOR EXAM: Female, 70 years old. DIFFICULTY SWALLOWING PILLS, FEELS LIKE STICKS ABOUT MIDWAY DOWN, INCREASING HEART BURN TECHNIQUE: 16 view(s) of the esophagus were obtained following swallowing of barium. FLUOROSCOPY TIME (if supplied): (0:30) minutes/seconds COMPARISON: None. FINDINGS: There is no demonstrated esophageal foreign body. There is no demonstrated stricture or mucosal abnormality. Normal gastroesophageal junction, without a demonstrated hiatal hernia. The patient ingested a 12 mm tablet of barium without any difficulty. There is atherosclerotic tortuosity of the aortic arch and descending thoracic aorta. Normal visualized pulmonary parenchyma. Normal visualized osseous structures of the thorax. RAD/Esophagus Single Contrast IMPRESSION: Normal plain film x-ray examination (barium swallow) of the esophagus. Electronically Signed: Ru Hogue MD at 10:20 EST , Service support ,
== END ==
PROVIDERS: PCP Internal Medicine; Referring Provider Internal Medicine; Visit Provider Internal Medicine
DX: R13.10 Dysphagia, unspecified (principal)
CPT/HCPCS: 74220

== ENCOUNTER → 2021-04-02 09:45 | Outpatient (CLI) | payer MEDICARE, OTHER, SELFPAY ==
[2021-01-08 13:04] VITALS: BMI 29.0
--- NOTE | 2021-04-02 09:47 | BI_ITS ---
MAMMOGRAPHY - BILATERAL SCREENING 3-D TOMOSYNTHESIS REASON FOR EXAM: Female, 70 years old. SCREENING PERTINENT HISTORY: No significant family history. TECHNIQUE: 2-D mammograms and 3-D Tomosynthesis of the breast (s) were performed. CAD was performed. COMPARISON: 04/01/2020 FINDINGS: The breast composition is slightly heterogeneous fibroglandular tissue. Scattered benign calcifications are seen. No dense spiculated masses or suspicious microcalcifications are identified. No architectural distortion is identified. There is no skin thickening or nipple retraction. There are benign looking lymph nodes involving the axillary areas bilaterally There has been no significant change since the prior study unchanged since 04/01/2020. BI/SCRN MAMM (CAD)W/ED BILAT IMPRESSION: No mammographic signs of malignancy. Routine yearly mammograms recommended. ASSESSMENT CATEGORY: BIRADS Category 1: Negative. A letter regarding these results will be sent to the patient by the facility within 30 days. FOLLOW UP RECOMMENDATION: Yearly follow up mammogram recommended. (A) Approximately 10% of breast cancers are not detected by mammography. A normal mammogram should not delay biopsy of a clinically suspicious abnormality. Electronically Signed: José Miguel Murphy, at 15:36 EDT Tel , Service support ,
== END ==
PROVIDERS: PCP Internal Medicine; Referring Provider Internal Medicine; Visit Provider Internal Medicine
DX: Z12.31 Encounter for screening mammogram for malignant neoplasm of breast (principal)
CPT/HCPCS: 77063; 77067

== ENCOUNTER → 2021-07-30 | Outpatient (CLI) | payer MEDICARE, OTHER, SELFPAY ==
[2021-07-30 12:46] LABS: Troponin-I HS 5 pg/mL (3.0-54.0)
== END | disposition home or self-care (01) ==
LOC: LABSPEC 11:59
PROVIDERS: PCP Internal Medicine; Visit Provider Internal Medicine
DX: R42 Dizziness and giddiness (principal)
CPT/HCPCS: 84484

== ENCOUNTER → 2021-08-07 13:52 | Outpatient (CLI) | payer MEDICARE, OTHER, SELFPAY ==
--- NOTE | 2021-08-07 13:55 | CDU_ITS ---
Reason For Study: Dizziness Rt. Velocities/BP Lt. Velocities/BP Prox CCA 79.9/14.7 cm/sec. Prox CCA 87.8/17.3 cm/sec. Mid CCA 93/16 cm/sec. Mid CCA 81.2/16 cm/sec. Dist CCA 87.8/20 cm/sec. Dist CCA 82.6/16 cm/sec. Prox ICA 98.2/12.1 cm/sec. Prox ICA 98.2/17.3 cm/sec. Mid ICA 70.8/18.6 cm/sec. Mid ICA 88/20 cm/sec. Dist ICA 76/21.3 cm/sec. Dist ICA 108.2/20.4 cm/sec. Rt. ICA/CCA = 1.12. Lt. ICA/CCA = 1.31. Prox ECA 79.9/9.5 cm/sec. Prox ECA 106/12.1 cm/sec. Rt. Vert. 40.8/9.5 cm/sec. Lt. Vert. 37.7/9.1 cm/sec. Right Extracranial There is homogeneous, smooth atherosclerotic plaque noted in the right common carotid artery. There is intimal thickening but no significant atherosclerotic plaque noted in the right internal carotid artery. There is intimal thickening but no significant atherosclerotic plaque noted in the right external carotid artery. Antegrade flow is noted in the right vertebral artery. Left Extracranial There is homogeneous, smooth atherosclerotic plaque noted in the left common carotid artery. There is intimal thickening but no significant atherosclerotic plaque noted in the left internal carotid artery. The left internal carotid artery is very tortuous. There is intimal thickening but no significant atherosclerotic plaque noted in the left external carotid artery. Antegrade flow is noted in the left vertebral artery. Procedure Carotid Duplex 19544. This is a Carotid Duplex examination using B-mode, color flow and specral Doppler. Exam performed in department. VL/Carotid Duplex Ultrasound Interpretation Summary No significant atherosclerotic plaque or stenosis noted in the internal carotid arteries bilaterally. Flow within the vertebral arteries is antegrade bilaterally. Ordering Physician: May Caldwell Referring Physician: May Caldwell Performed By: Nydia Patiño RVT
== END ==
PROVIDERS: PCP Internal Medicine; Referring Provider Internal Medicine; Visit Provider Internal Medicine
DX: R42 Dizziness and giddiness (principal)
CPT/HCPCS: 93880

== ENCOUNTER → 2021-08-21 13:44 | Outpatient (CLI) | payer MEDICARE, OTHER, SELFPAY ==
--- NOTE | 2021-08-21 13:45 | CT_ITS ---
STUDY: CT BRAIN WITH AND WITHOUT CONTRAST REASON FOR EXAM: Female, 70 years old. Dizziness. Headaches. RADIATION DOSAGE (If Supplied By Facility): CTDIvol = ( 44.99 ) mGy, DLP = ( 1479.73 ) mGycm TECHNIQUE: Transaxial CT imaging of the brain was performed pre and post contrast administration. The examination was performed with intravenous administration of IV 50mL Isovue-370. Individualized dose optimization techniques were used for this CT. COMPARISON: Comparison is made with prior study 06/17/2018. FINDINGS: Normal soft tissue structures. Normal calvarium. There is mild cerebral atrophy with widening of the extra-axial spaces and ventricular dilatation. Normal white matter tracts of the cerebral hemispheres. Normal basal ganglia and thalami. Normal brainstem. Normal cerebellum. There is no intracranial hemorrhage. There are no findings of an acute ischemic infarction. Normal visualized paranasal sinuses. CT/Brain/Head W/WO Contrast IMPRESSION: Chronic involutional changes of the brain. Electronically Signed: Ru Hogue MD at 15:16 EST , Service support ,
[2021-08-21 14:01] LABS: CREATININE FINGERSTICK < 0.6 mg/dL (0.55-1.02); EGFR FINGERSTICK > 60.0000 mL/min (>60)
== END ==
PROVIDERS: PCP Internal Medicine; Referring Provider Internal Medicine; Visit Provider Internal Medicine
DX: R42 Dizziness and giddiness (principal)
CPT/HCPCS: 70470; Q9967

== ENCOUNTER → 2021-09-12 12:51 | Outpatient (CLI) | payer MEDICARE, OTHER, SELFPAY ==
--- NOTE | 2021-09-12 12:55 | ECHOD_ITS ---
Reason For Study: FATIGUE Procedure This was a 2D Doppler, Color Flow transthoracic echocardiogram. Exam performed in department. Left Ventricle Normal LV size. The estimated ejection fraction is 55 %. No evidence for diastolic dysfunction. No regional wall motion abnormalities noted. Right Ventricle Normal RV size. Normal systolic function. Atria Normal left atrium. Normal right atrium. No doppler evidence for ASD. Mitral Valve There is no mitral valve stenosis. No mitral valve insufficiency. Tricuspid Valve There is no tricuspid stenosis. Trivial tricuspid valve insufficiency. Pulmonary artery systolic pressure is 30 mmHg. Aortic Valve Trisinus/trileaflet aortic valve. There is no aortic stenosis. No aortic valve insufficiency. Pulmonic Valve There is no pulmonic valvular stenosis. No pulmonic valve insufficiency. Great Vessels Normal aortic root. Pericardium/Pleural No pericardial effusion. MMode/2D Measurements & Calculations LVIDd: 4.4 cm IVSd: 0.83 cm Ao root diam: 3.5 cm LVIDs: 2.9 cm LVPWd: 0.64 cm RVDd: 3.0 cm FS: 35.2 % LAV(MOD-bp): 35.9 ml LA A4 area: 14.4 cm2 LA dimension(2D): 3.2 cm LAV(MOD-bp) Indexed: 20.3 ml/m2 LAV(MOD-sp2): 36.5 ml LAV(MOD-sp4): 33.1 ml RA A4 area: 12.2 cm2 Doppler Measurements & Calculations MV E max terrell: 58.6 cm/sec Lat Peak E' Terrell: 7.3 cm/sec Med Peak E' Terrell: 5.7 cm/sec MV A max terrell: 95.2 cm/sec E/E' lat: 8.0 E/E' med: 10.3 MV E/A: 0.62 Ao V2 max: 145.2 cm/sec LV V1 max: 109.9 cm/sec TR max terrell: 246.4 cm/sec Ao max P.4 mmHg LV V1 max P.8 mmHg TR max P.3 mmHg ECHO/Echo Complete Interpretation Summary The estimated ejection fraction is 55 %. No evidence for diastolic dysfunction. Ordering Physician: May Cladwell Referring Physician: May Caldwell Performed By: Breanna Mchugh, TIAN, RVT
== END ==
PROVIDERS: PCP Internal Medicine; Referring Provider Internal Medicine; Visit Provider Internal Medicine
DX: R53.83 Other fatigue (principal); R94.31 Abnormal electrocardiogram [ECG] [EKG]
CPT/HCPCS: 93225; 93226; 93306

== ENCOUNTER 2021-12-02 05:56 | Outpatient (CLI) | payer MEDICARE, OTHER, SELFPAY ==
--- NOTE | 2021-12-02 18:34 | STRESSREP ---
Stress Test Report Date: 12-02-2021 Procedure: Exercise tolerance test/imaging study Indications: Chest pain Consent: Per the patient Procedure: The patient exercised on a Victor Hugo protocol for 4 minutes and 30 seconds completing Stage I and 1 minute and 30 seconds of Stage II achieving a peak heart rate of 136 bpm (92% predicted maximal heart rate) with a peak blood pressure 184/70 mmHg and a peak MET capacity of 7 METs. The baseline ECG demonstrated normal sinus rhythm. The peak exercise ECG demonstrated no obvious ECG changes. There were no cardiac dysrhythmias pretest, during exercise, or recovery. The functional capacity was considered decreased. There was left upper chest discomfort and dyspnea at peak exercise. The examination was discontinued secondary to dyspnea and leg discomfort. Impression: 1. Technically adequate (percent predicted maximal heart rate greater than 85%) exercise tolerance test 2. Peak exercise ECG with no obvious ECG changes 3. There were no cardiac dysrhythmias pretest, during exercise, or recovery 4. Nuclear images pending Myocardial perfusion imaging study: Technique: The patient was injected with 10.8 mCi of technetium 99m Cardiolite and subsequently rest SPECT Cardiolite nuclear imaging was obtained in the horizontal long, vertical long, and short axis views. The patient exercised on a Victor Hugo protocol for 4 minutes and 30 seconds completing Stage I and 1 minute and 30 seconds of Stage II achieving a peak heart rate of 136 bpm (92% predicted maximal heart rate) with a peak blood pressure 184/70 mmHg and a peak MET capacity of 7 METs. The patient was injected with 33.5 mCi of technetium 99m Cardiolite and subsequently stress SPECT Cardiolite nuclear imaging was obtained in the horizontal long, vertical long, and short axis views. A gated Cardiolite study at peak stress was obtained. Interpretation: Rest and stress SPECT Cardiolite nuclear imaging status post realignment, normalization, and attenuation correction, demonstrates the appearance of relative uniform tracer uptake and myocardial perfusion appearing within normal limits. There is end systolic thickening and brightening. The gated Cardiolite study demonstrates myocardial thickening and inward wall motion. The reported LVEF is 75%. Impression: 1. Rest and stress SPECT Cardiolite nuclear imaging demonstrate relative uniform tracer uptake and myocardial perfusion appearing within normal limits. 2. The gated Cardiolite study reports an LVEF of 75%. This note was generated with [employer] software. It may contain incorrect words, spelling, and punctuation that were not noted in checking the note before signing.
== END 2021-12-02 23:59 | disposition home or self-care (01) ==
LOC: CVS 05:58
PROVIDERS: PCP Internal Medicine; Referring Provider Internal Medicine; Visit Provider Internal Medicine
DX: R41.0 Disorientation, unspecified (principal); R07.89 Other chest pain
CPT/HCPCS: 78452; 93017; A9500; A4216

== ENCOUNTER 2021-12-04 10:02 | Outpatient (CLI) | payer MEDICARE, OTHER, SELFPAY ==
[2021-12-04 10:25] LABS: CREATININE FINGERSTICK < 0.6 mg/dL (0.55-1.02); EGFR FINGERSTICK > 60.0000 mL/min (>60)
--- NOTE | 2021-12-04 10:45 | MRI_ITS ---
HISTORY: Confusion, early dementia. TECHNIQUE: Multiplanar and multisequence MR images of the brain were obtained without and with IV gadolinium. IV Contrast dosage and agent: 15 mL Dotarem. # of images incl. paperwork: 326. COMPARISON: CT 08/21/2021, MR 06/17/2018. FINDINGS: BRAIN PARENCHYMA: No significant signal abnormality. No abnormal focus of restricted diffusion. No enhancing lesion in the brain parenchyma. INTRACRANIAL HEMORRHAGE: No acute intracranial hemorrhage. CSF SPACES: Appropriate for age. No midline shift or other significant mass effect. No extra-axial fluid collection. VESSELS: Major intracranial flow voids maintained. ORBITS: Symmetric in appearance. PARANASAL SINUSES: Clear. MRI/Brain W/WO Contrast IMPRESSION: No evidence of enhancing intracranial mass, acute infarct, or acute intracranial hemorrhage. Unremarkable examination. at 1635 Reported and signed by: Anamaria Bertrand MD Electronically Signed: Anamaria Bertrand MD at 16:34 EST ,
== END 2021-12-04 23:59 | disposition home or self-care (01) ==
LOC: MRI 10:02
PROVIDERS: PCP Internal Medicine; Referring Provider Internal Medicine; Visit Provider Internal Medicine
DX: R41.0 Disorientation, unspecified (principal); R07.89 Other chest pain
CPT/HCPCS: 70553; A9575

== ENCOUNTER → 2022-04-03 | Outpatient (CLI) | payer MEDICARE, OTHER, SELFPAY ==
--- NOTE | 2022-04-03 09:52 | BI_ITS ---
MAMMOGRAPHY - BILATERAL SCREENING REASON FOR EXAM: Female, 71 years old. Routine annual screening examination. PERTINENT HISTORY: Aunts with breast cancer. History of prior bilateral breast aspiration. TECHNIQUE: Digital bilateral breast ed (3D mammographic acquisition) in the CC and MLO projections. 2-D mediolateral oblique (MLO) and craniocaudad (CC) views of both breasts were obtained. CAD: Full Field Digital Mammography with Computer Added Detection was performed. COMPARISON: Comparison is made with prior examination dated 04/02/2021 and 04/01/2020. FINDINGS: Breast Composition: The breasts are heterogeneously dense, which may obscure small masses. There are no dominant masses or suspicious calcifications. There is a 5.3 mm well-defined nodule in the anterior upper lateral aspect of the left breast. Correlation with ultrasound is recommended. Stable benign appearing bilateral axillary lymph nodes. No other significant abnormalities are identified. BI/SCRN MAMM (CAD)W/ED BILAT IMPRESSION: 5.3 mm well-defined nodule in the anterior upper lateral aspect of the left breast. Correlation with ultrasound is recommended. ASSESSMENT CATEGORY: BIRADS Category 0: Incomplete. Need additional imaging evaluation. A letter regarding these results will be sent to the patient by the facility within 30 days. Approximately 10% of breast cancers are not detected by mammography. A normal mammogram should not delay biopsy of a clinically suspicious abnormality. [id number] Electronically Signed: Ru Hogue MD at 13:46 EDT ,
== END | disposition home or self-care (01) ==
LOC: OPBI 09:51
PROVIDERS: PCP Internal Medicine; Visit Provider Internal Medicine
DX: Z12.31 Encounter for screening mammogram for malignant neoplasm of breast (principal); N63.20 Unspecified lump in the left breast, unspecified quadrant; Z80.3 Family history of malignant neoplasm of breast
CPT/HCPCS: 77063; 77067

== ENCOUNTER → 2022-04-08 | Outpatient (CLI) | payer MEDICARE, OTHER, SELFPAY ==
--- NOTE | 2022-04-08 10:53 | US_ITS ---
STUDY: ULTRASOUND BREAST - LEFT REASON FOR EXAM: Female, 71 years old. Abnormal screening mammogram. TECHNIQUE: Axial and longitudinal images of the LEFT breast were performed with a high resolution ultrasound transducer. # OF IMAGES: 14 COMPARISON: Comparison is made with prior mammogram dated 04/03/2022 and prior sonogram of the left breast dated 10/02/2013. FINDINGS: LEFT Breast: Targeted ultrasound of the upper-outer quadrant of the left breast was obtained. The mammographic abnormality corresponds to a 6 mm x 6 mm x 4 mm hypoechoic nodule with central fatty hilum suggestive of a small lymph node. US/Breast Limited Unilateral IMPRESSION: The mammographic abnormality suggests a presence of a 6 mm x 6 mm x 4 mm lymph node. ASSESSMENT CATEGORY: BIRADS Category 2: Benign. A letter regarding these results will be sent to the patient by the facility within 30 days. Electronically Signed: Ru Hogue MD at 12:56 EDT ,
== END | disposition home or self-care (01) ==
LOC: OPUS 10:52
PROVIDERS: PCP Internal Medicine; Visit Provider Internal Medicine
DX: N63.21 Unspecified lump in the left breast, upper outer quadrant (principal)
CPT/HCPCS: 76642

== ENCOUNTER 2022-04-19 05:46 | Emergency (ER) | payer MEDICARE, OTHER, SELFPAY ==
[2022-04-19 05:47] VITALS: BP 146/72; PULSE 95; RESP 18; TEMP 37; O2SAT 97; BMI 30.1
--- NOTE | 2022-04-19 06:13 | EX.ED.DYSGE1 ---
HPI History of Present Illness Chief Complaint: Other, Pain/Inj Informant: patient Onset/Context/Timing Onset: Days (3) Context: Gradual Onset Timing: Continuous Quality: Aching Location: Generalized Worsened by: Nothing Relieved by: Nothing Narrative Narrative: I do notPatient presents with feel good. Patient states this has been getting worse over the last 3 days. Patient admits to some generalized myalgias. Patient states her legs have been cramping. 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 Patient admits to some subjective chills but denies any fevers. Patient admits to a sore throat and bilateral ear pain. Patient admits to a cough but denies any sputum production. Patient also admits to a generalized headache. Patient states nothing makes her symptoms better nothing makes them worse. [facility] Medical History (Updated 04/19/22 @ 07:[address] Brayden Cooper, DO) Essential hypertension Fibromyalgia Syncope Home Medications amlodipine 5 mg tablet 5 mg PO DAILY BP 06/17/18 [History Last Taken 12/08/19] ascorbic acid (vitamin C) 1,000 mg tablet 1,000 mg PO DAILY SUPPLEMENT 06/17/18 [History Last Taken 06/17/18] coenzyme Q10 100 mg capsule 100 mg PO DAILY 06/17/18 [History Last Taken 06/16/18] lactobacillus combination no.4 3 billion cell capsule 1 cap PO DAILY SUPPLEMENT 06/17/18 [History Last Taken 06/17/18] hydrocodone-acetaminophen 5-325mg 5mg-325mg (Buckeye) 2 tab PO Q8H PRN Pain Score 1-10/10 07/28/18 [History Last Taken Unknown] calcium carbonate 500 mg calcium (1,250 mg) tablet (Calcium 500) 500 mg PO DAILY 12/01/19 [History Last Taken Unknown] triamcinolone acetonide 55 mcg nasal spray aerosol (Nasacort) 2 spray intranasal DAILY 12/01/19 [History Last Taken Unknown] aspirin 81 mg tablet,delayed release (Adult Aspirin Regimen) 81 mg PO 4XW 01/08/21 [History Last Taken Unknown] cholecalciferol (vitamin D3) 50 mcg (2,000 unit) tablet 150 mcg PO DAILY 01/08/21 [History Last Taken Unknown] famotidine 40 mg tablet (Pepcid) 40 mg PO BID 12/26/21 [History Last Taken Unknown] rosuvastatin 5 mg tablet 5 mg PO 5X/DAY 12/26/21 [History Last Taken Unknown] vitamins A,C,I-izgx-wtfajy 14,320 unit-226 mg-200 unit capsule (PreserVision AREDS) 1 cap PO BID 12/26/21 [History Last Taken Unknown] nirmatrelvir 300 mg (150 mg x 2)-ritonavir 100 mg tablet (EUA) (Paxlovid 300 mg () See Rx Instructions PO .COMPLEX #30 tabs 04/19/22 [Rx Last Taken Unknown] Allergy/AdvReac Type Severity Reaction Status Date / Time duloxetine [From Cymbalta] AdvReac Intermediate groggy,fati Verified 04/19/22 05:51 ashlyn Family History Mother Myocardial infarction, Onset Age: 56 Heart valve replaced Father CAD (coronary artery disease) History of coronary artery bypass surgery Cancer Prostate Brother Hypertension Brother Hypertension Surgical History History of appendectomy History of cholecystectomy History of left heart catheterization (LHC) (~12/08/19) Social History Smoking Status: Never smoker alcohol intake: never substance use type: does not use ROS ROS ED Constitutional Constitutional ED: Reports chills and subjective; Denies fever(s) Eyes Eyes: Denies blurry vision or change in vision ENT ENT ED: Reports ear pain bilateral and sore throat; Denies rhinorrhea Cardiovascular Cardiovascular: Denies chest pain or palpitations Respiratory/Chest Respiratory/Chest: Reports cough; Denies dyspnea Gastrointestinal Gastrointestinal: Denies nausea or vomiting Genitourinary Genitourinary ED: Denies dysuria or hematuria Musculoskeletal Musculoskeletal: Reports back pain, myalgias and neck pain Integumentary Denies abscess or rash Neurologic Neurologic: Reports headache(s); Denies weakness Allergic/Immunologic Allergic/Immunologic ED: Denies mouth swelling or urticaria EXAM Physical Exam Const Vital Signs: 04/19/22 05:47 04/19/22 05:54 04/19/22 06:48 Temperature 98.6 F Temperature Source Temporal Pulse Rate 95 89 Respiratory Rate 18 21 H Respiratory Effort Normal Respiratory Pattern Normal Blood Pressure 146/72 H 150/83 H Blood Pressure Mean 96 105 Pulse Ox 97 99 Oxygen Delivery Method Room Air Room Air 04/19/22 06:41 04/19/22 06:41 Temperature Temperature Source Pulse Rate 76 Respiratory Rate 11 L Respiratory Effort Respiratory Pattern Blood Pressure Blood Pressure Mean Pulse Ox 99 Oxygen Delivery Method Room Air Positive well nourished and well developed General Appearance ED: well developed HEENT Reports moist mucous membranes Neck supple and no JVD Resp normal respiratory effort and clear to auscultation bilaterally Cardio regular rate, regular rhythm and no murmurs GI normal to inspection, nondistended, normoactive bowel sounds and non-tender Palpation: soft Extremity normal to inspection General Extremety ED: Negative for edema or tenderness General Extremity: Negative for edema Neuro oriented x3, CN's II-XII intact bilaterally and no sensory deficits noted Sensorium / Orientation: alert Motor Exam: strength 5/5 throughout Psych mental status grossly normal Skin no rashes or lesions noted MDM MDM MDM Narrative Medical decision making narrative: Patient was given IV fluids, morphine, and Zofran. Patient was given a DuoNeb aerosol here. EKG was obtained. On my interpretation, it showed a normal sinus rhythm with a rate of 81. MT interval, QRS interval, and QTc intervals were all normal. [place] was normal. There are nonspecific ST-T wave changes. CBC was within normal limits. Comprehensive metabolic profile was obtained and is within normal limits. Troponin was obtained and is normal. COVID-19 rapid antigen was obtained and is positive. Influenza A and influenza B swabs were obtained and are negative. Portable chest x-ray was obtained and is pending. Lab Data Attestation: I reviewed the patient's lab results. Labs: Laboratory Results - last 24 hr 04/19/22 04/19/22 06:35 06:35 WBC 9.0 RBC 4.51 Hgb 13.5 Hct 40.9 MCV 90.7 MCH 29.9 MCHC 33.0 RDW Std Deviation 46.4 H RDW Coeff of Vlad 13.8 Plt Count 241 MPV 10.6 Immature Gran % (Auto) 0.400 Neut % (Auto) 80.2 H Lymph % (Auto) 9.0 L [place] % (Auto) 9.9 Eos % (Auto) 0.1 Baso % (Auto) 0.4 Absolute Neuts (auto) 7.2 Absolute Lymphs (auto) 0.81 L Nucleated RBC % 0 Sodium 138 Potassium 4.0 Chloride 103 Carbon Dioxide 28.0 Anion Gap 7 BUN 19 H Creatinine 0.80 Estim Creat Clear Calc 51.81 Est GFR (MDRD) Af Amer 91 Est GFR (MDRD) Non-Af 75 BUN/Creatinine Ratio 23.9 H Glucose 114 H Calcium 9.1 Total Bilirubin 0.60 AST 34 ALT 34 Alkaline Phosphatase 85 Troponin I High Sens 6 Total Protein 7.4 Albumin 3.5 Globulin 3.9 Albumin/Globulin Ratio 0.9 EKG Initial EKG: Attestation: I personally reviewed and interpreted this EKG as follows: Interpretation: Sinus Rhythm (81) and Non-Specific ST Changes Prior EKG tracings: available for review Prior: Unchanged (12/01/2019) Discharge Plan Triage Chief Complaint: Other, Pain/Inj ED Provider: Brayden Cooper Dx/Rx/DC Orders Clinical Impression: COVID-19, Fibromyalgia Instructions: Coronavirus Disease 2019 (COVID-19): Caring for Yourself or Others Prescriptions: New Paxlovid (EUA) 300 mg (150 mg x 2)-100 mg tablet See Rx Instructions .ROUTE .COMPLEX Qty: 30 0RF Rx Instructions: take TWO 150 mg tablets of nirmatrelvir with ONE 100 mg tablet of ritonavir twice daily for 5 days No Action hydrocodone-acetaminophen [Buckeye] 5-325 mg tablet 2 tab PO Q8H PRN (Reason: Pain Score 1-10/10) triamcinolone acetonide [Nasacort] 55 mcg aerosol,spray 2 spray INTRANASAL DAILY Rx Instructions: administer into each nostril calcium carbonate [Calcium 500] 500 mg calcium (1,250 mg) tablet 500 mg PO DAILY cholecalciferol (vitamin D3) 50 mcg (2,000 unit) tablet 150 mcg PO DAILY aspirin [Adult Aspirin Regimen] 81 mg tablet,delayed release (DR/EC) 81 mg PO 4XW PreserVision AREDS 14,320-226-200 nyue-ny-qaew capsule 1 cap PO BID famotidine [Pepcid] 40 mg tablet 40 mg PO BID ascorbic acid (vitamin C) 1,000 MG tablet 1,000 mg PO DAILY amlodipine 5 MG tablet 5 mg PO DAILY coenzyme Q10 100 MG capsule 100 mg PO DAILY lactobacillus combination no.4 1 EACH capsule 1 cap PO DAILY rosuvastatin 5 mg tablet 5 mg PO 5X/DAY Primary Care Provider: May Caldwell Referrals: May Caldwell DO [Primary Care Provider] - 3-5 Days Disposition Disposition: Home, Self Care
--- NOTE | 2022-04-19 06:16 | RAD_ITS ---
STUDY: X-RAY CHEST REASON FOR EXAM: Female, 71 years old. Cough TECHNIQUE: Single AP portable view of the chest. COMPARISON: December 01, 2019 FINDINGS: There are monitoring devices. The lungs are clear and expanded. There is no demonstrated pleural abnormality. Normal size heart. Normal mediastinum and tao. Normal visualized pulmonary arteries. Normal visualized aortic arch and descending thoracic aorta. There are diffuse degenerative changes of the visualized thoracic spine. Normal visualized ribs, clavicles, and shoulders. There is no demonstrated abnormality of the visualized soft tissue structures of the upper abdomen. RAD/Chest 1 View (Portable) IMPRESSION: Degenerative changes, as described above. No demonstrated acute cardiopulmonary process. Electronically Signed: Rayray Sanabria MD at 8:27 EDT ,
--- NOTE | 2022-04-19 06:17 | EKG12_ITS ---
Test Reason : Blood Pressure : / mmHG Vent. Rate : 081 BPM Atrial Rate : 081 BPM P-R Int : 150 ms QRS Dur : 078 ms QT Int : 366 ms P-R-T Axes : 054 003 032 degrees QTc Int : 425 ms Normal sinus rhythm Nonspecific ST abnormality Abnormal ECG Confirmed by SRI JUAREZ, YOSELIN ([id number]), video editor LINNETTE COYLE ([id number]) on 04/21/2022 8:50:53 AM Referred By: HARJINDER Confirmed By:YOSELIN FIERRO MD
[2022-04-19] MEDS: Ipratropium/Albuterol Sulfate 3 ML AMPUL.NEB INHALATION (06:38)
[2022-04-19 06:41] VITALS: PULSE 76; RESP 11; O2SAT 99
[2022-04-19 06:45] LABS: Absolute Lymphocyte Count 0.81 X10^3/uL (0.83-4.51); Absolute Neutrophil Count 7.2 X10^3/uL (2.0-7.7); Basophil# 0.04 X10^3/uL; Basophil% 0.4 % (0-1); Eosinophil# 0.01 X10^3/uL; Eosinophils% 0.1 % (0-5); Hematocrit 40.9 % (37-47); Hemoglobin 13.5 g/dL (12.0-15.0); Lymphocyte # 0.81 X10^3/ul (0.83-4.51); Mean Corpuscular Hgb 29.9 pg (27.0-32.0); Mean Corpuscular Volume 90.7 fL (81-99); Mean Platelet Vol. 10.6 fl (6.2-12.0); Monocyte# 0.89 X10^3/uL; Monocyte% 9.9 % (0-10); NRBC Flagged by Analyzer 0 % (0-5); Neutrophil # 7.18 X10^3/uL (2.7-7.7); Neutrophil % 80.2 % (47-70); Platelet Count 241 K/mm3 (150-450); RBC Distribution Width CV 13.8 % (11.6-14.6); RBC Distribution Width SD 46.4 fl (35.1-43.9); Red Blood Count 4.51 M/mm3 (4.2-5.4)
[2022-04-19] MEDS: 0.9% Normal Saline 1,000 ML 1000 ML IV (06:46)
[2022-04-19] MEDS: Morphine 4 MG/ML Syringe IV (06:46)
[2022-04-19] MEDS: Ondansetron 4 MG/2 ML Vial IV (06:46)
[2022-04-19 06:48] VITALS: BP 150/83; PULSE 89; RESP 21; O2SAT 99
[2022-04-19 07:54] VITALS: BP 153/80; PULSE 68; RESP 16; O2SAT 98
== END 2022-04-19 08:03 | disposition home or self-care (01) ==
PROVIDERS: Emergency Provider Emergency Medicine; PCP Internal Medicine; Visit Provider Emergency Medicine
DX: U07.1 COVID-19 (principal); I10 Essential (primary) hypertension; M79.7 Fibromyalgia; Z79.82 Long term (current) use of aspirin; Z79.899 Other long term (current) drug therapy
CPT/HCPCS: 71045; 80053; 84484; 85025; 87428; 93005; 94640; 96361; 96374; 96375; 99284; J2405

== ENCOUNTER → 2022-07-21 | Outpatient (CLI) | payer MEDICARE, OTHER, SELFPAY ==
--- NOTE | 2022-07-21 10:55 | US_ITS ---
STUDY: ULTRASOUND BREAST - LEFT REASON FOR EXAM: Female, 71 years old. Follow-up examination. TECHNIQUE: Axial and longitudinal images of the LEFT breast were performed with a high resolution ultrasound transducer. # OF IMAGES: 25 COMPARISON: Comparison is made with prior sonogram of the left breast dated 04/08/2022. FINDINGS: LEFT Breast: Stable 6 mm x 6 mm x 5 mm hypoechoic nodule with central fatty hilum at T2 o''clock position of the breast at 5 cm from nipple. Most likely represents a lymph node. US/Breast Limited Unilateral IMPRESSION: Stable examination. ASSESSMENT CATEGORY: BIRADS Category 2: Benign. A letter regarding these results will be sent to the patient by the facility within 30 days. Electronically Signed: Ru Hogue MD at 10:15 EDT ,
== END | disposition home or self-care (01) ==
LOC: US 10:54
PROVIDERS: PCP Internal Medicine; Visit Provider Internal Medicine
DX: R92.8 Other abnormal and inconclusive findings on diagnostic imaging of breast (principal)
CPT/HCPCS: 76642

== ENCOUNTER → 2022-10-14 | Outpatient (CLI) | payer OTHER, MEDICARE, SELFPAY ==
--- NOTE | 2022-10-14 10:11 | BD_ITS ---
STUDY: DUAL ENERGY X-RAY ABSORPTIOMETRY / DXA REASON FOR EXAM: Female, 72 years old. Z780 -- postmenopausal TECHNIQUE: Bone Mineral Density (BMD) measurements of lumbar spine and bilateral hips were obtained. COMPARISON: Comparison is made with prior study dated 08/20/2020. FINDINGS: Lumbar Spine (L1-L4): g/cm2 (0.871) / T-score (-1.3) / Z-score (1.0) Findings are suggestive of osteopenia with a low fracture risk. Left Femur Total: g/cm2 (0.703) / T-score (-2.0) / Z-score (-0.2) Left Femoral Neck: g/cm2 (0.630) / T-score (-2.0) / Z-score (0.1) Right Femur Total: g/cm2 (0.659) / T-score (-2.3) / Z-score (-0.6) Right Femoral Neck: g/cm2 (0.598) / T-score (-2.3) / Z-score (-0.2) The T-Scores on the most recent prior examination were: Lumbar Spine (L1-L4): There has been worsening of bone density since the previous examination. Left Femur Total: which represents an improvement of 1.8%. Right Femur Total: which represents a worsening of 4.2%. BD/Dexa Bone Density Study IMPRESSION: The patient is considered osteopenic as outlined below according to World Yoni Organization (WHO) criteria with a high fracture risk. There has been worsening of bone density since the previous examination. Reference Information: The T-score is the number of standard deviations above or below the standard which is normal for young adults at their peak bone mineral density. The World Health Organization (WHO) interprets the T-scores as follows: Above -1 Normal bone density Between -1 and -2.5 Osteopenia Equal to / or below -2.5 Osteoporosis As a practical clinical guideline, osteopenia may be graded as follows: Mild -1 through -1.5 Moderate -1.6 through -2.0 Severe -2.1 through -2.4 The Z-score is the number of standard deviations above or below age-matched controls. A Z-score of less than -1.5 would be considered abnormal. References: 1. NIH Osteoporosis and Related Bone Diseases www osteo.org 2. International Society for Clinical Densitometry www iscd.org 3. National Osteoporosis Foundation www nof.org Electronically Signed: Ru Hogue MD at 11:09 EST ,
== END | disposition home or self-care (01) ==
LOC: OPBD 10:05
PROVIDERS: PCP Internal Medicine; Visit Provider Internal Medicine
DX: M85.80 Other specified disorders of bone density and structure, unspecified site (principal); Z78.0 Asymptomatic menopausal state
CPT/HCPCS: 77080

== ENCOUNTER 2023-04-05 10:05 | Day surgery (SDC) | payer MEDICARE, SELFPAY ==
[2023-04-05] VITALS (7 sets, daily range): BP systolic 123–144; BP diastolic 64–74; PULSE 64–74; RESP 14–16; TEMP 36.7–37.1; O2SAT 93–100; BMI 31.5
--- NOTE | 2023-04-05 10:43 | HP.PCM_ITS ---
History and Physical Date of Admission: 04/05/23 72 F who presents to the office today for lower retrosternal discomfort x 9-12 mos, initially thought it was fibromyalgia, then became worried about cancer since her [id number] of ?esophageal cancer. Sometimes worse postprandially, gets acid reflux, having some difficulty swallowing dry pills, gets bloating and gas. Taking famotidine, some help with reflux. No nausea or vomiting. Has BM almost daily, sometimes hard and needs to strain. No diarrhea. No melena or hematochezia. No abdominal pain. Weight gain. 10/2020 Esophagram from dysphagia: normal No prior EGD Had colonoscopy about ?[address] Moya (no record in [facility]) Had COVID in 04/2022 Has sicca syndrome Lots of stress, she notes this does exacerbate her symptoms ROS Const Constitutional: Positive for fatigue and weight change ENT ENT: Positive for difficulty swallowing Gastro GI: Positive for abdominal pain, bloating, difficulty swallowing and excessive flatus; No belching, change in bowel habits, change in stool character, coffee ground emesis, constipation, cramping, diarrhea, heartburn, feeling full early, incontinent of stools, Vomiting blood/hematemesis, Blood in stool, loose stools, Black,tarry stools, nausea/dyspepsia, pain with swallowing, vomiting or other Musc Musculoskeletal: Positive for joint pain, back pain, muscle cramps, stiffness, restless legs and leg pain at night Skin Skin: No yellowing of the eye or itchy eyes Neuro Neurology: Positive for restless legs Psych Psychiatric: Positive for anxiety and Positive for depression Endo Endocrine: Positive for fatigue and weight change Aller/Imm Allergy/Immunologic: No itchy eyes David/Lymp Hematologic/Lymphatic: No easy bleeding or easy bruising Exam Const General: cooperative and anxious Nutritional Appearance: obese Orientation: alert, awake and oriented x3 Eyes Sclera: sclerae normal Resp Effort & Inspection: normal respiratory effort GI Inspection: normal to inspection Palpation: soft, no hepatosplenomegaly, no masses and nontender Musc Other: tender to palpation at costochondral junctions Quality Reporting Tobacco Screening ([facility] 138) Smoking Status: Never smoker Assessment and Plan Assessment and Plan (1) GERD (gastroesophageal reflux disease): ?Status:?Chronic ?Plan: EGD and colonoscopy (unless she finds record of colonoscopy in last 10 yrs) Samples Miralax to try daily to help with mild constipation Try pantoprazole instead of famotidine Discussed costochondritis ? ? ? Medications: New pantoprazole 40 mg? PO QAM 90 tabs 1RF ? ? I have examined the patient and the H&P has been reviewed. There are no clinical changes since date of exam.
[2023-04-05] MEDS: Lactated Ringers 1,000 ML 15 ML IV (10:48)
--- NOTE | 2023-04-05 11:15 | IMM_PTH ---
PATIENT: MALLORY TORRES LOC: EN U#:[id number] AGE/SX: 72/F ROOM: RE04/05/[address]: Dr. Donato Hinkle DO : 1950 BED: DIS: 04/05/2023 SPEC #: [id number] RECD: 04/05/23 13:57 STATUS: PAUL REQ #: [id number] AMY: 04/05/23 11:[address]: Donato Hinkle DEPT: IMMUNOHISTOCHEMISTRY RECD BY: Vero Marx ENTERED: 04/05/23 13:57 SP TYPE: IMMUNO OTHR DR: Dr. May Caldwell DO Tissues: A - Stomach, NOS Procedures: H Pylori (initial) PHYSICIAN & INSTITUTION [place] [id number] SPECIMEN INFORMATION: Tissue Source: A - Gastric antrum Clinical Info: GERD Specimen Number: [id number] CPT code: 30312 METHODOLOGY: Deparaffinized sections of prefer/formalin-fixed tissue or PAP/DQ stained slides are incubated with monoclonal/polyclonal antibodies/oligonucleotide probes. Localization is made via biotin free immunoperoxidase method. Appropriate controls are performed and reacted as expected. Results on target cell population are indicated in the following table: RESULTS: ANTIBODY / CLONE RESULT Block A H Pylori (polyclonal) negative These tests were developed and their performance characteristics determined by [facility]. They may not have been cleared or approved by the U.S. Food and Drug Administration. The FDA has determined that such clearance or approval is not necessary. The above immunohistochemical/dualISH markers are ordered and reviewed by the Pathologist. INTERPRETATION: A. Gastric antrum, biopsy: Negative for Helicobacter pylori organisms. AM:ger 04/06/2023
--- NOTE | 2023-04-05 11:15 | EGD_PTH ---
PATIENT: MALLORY TORRES LOC: EN U#:[id number] AGE/SX: 72/F ROOM: RE04/05/[address]: Dr. Donato Hinkle DO : 1950 BED: DIS: 04/05/2023 SPEC #: [id number] RECD: 04/05/23 13:10 STATUS: PAUL HERI #: [id number] AMY: 04/05/23 11:[address]: Donato Hinkle DEPT: SURGICAL PATHOLOGY RECD BY: Amparo Monroe ENTERED: 04/05/23 13:29 SP TYPE: EGD BIOPSY OTHR DR: Dr. May Caldwell DO Tissues: A - Gastric mucous membrane B - Gastric mucous membrane C - Esophagus, NOS Procedures: Special Stain Group II Surgery Specimen Level IV Alcian Blue/PAS (control) HEADER OPERATION: EGD with biopsies (MAC) PRE-OP DIAGNOSIS: GERD TISSUE SUBMITTED: A - Gastric antrum for H. pylori and path, B - Gastric body, C - Distal esophagus MICROSCOPIC DIAGNOSIS A. Gastric antrum, biopsy: Chronic gastritis. Focal mild glandular atypia of uncertain significance. See comment. B. Gastric body, biopsy: Chronic gastritis. C. Distal esophagus, biopsy: Gastroesophageal junctional mucosa with mild chronic inflammation. No evidence of goblet cell metaplasia. See comment. AM:ger 04/06/2023 COMMENT A. The results of immunohistochemistry for Helicobacter pylori will be reported separately ([id number]). Alcian blue/PAS stain with matched control supports the above diagnosis. C. Alcian blue/PAS stain with matched control supports the above diagnosis. Case has been reviewed in consultation with Dr. Tsai who concurs with the above diagnosis. IDC:SJ MICROSCOPIC DESCRIPTION Slides are reviewed. GROSS DESCRIPTION A - Received in fixative is one container labeled with the patient's name and designated gastric antrum. The specimen consists of multiple irregular fragments of light villegas soft tissue that in aggregate measure 1.0 x 0.3 x 0.1 cm. The specimen is totally submitted in one cassette. B - Received in fixative is one container labeled with the patient's name and designated gastric body. The specimen consists of one irregular fragment of light villegas soft tissue that measures 0.3 x 0.3 x 0.1 cm. The specimen is totally submitted in one cassette. C - Received in fixative is one container labeled with the patient's name and designated distal esophagus. The specimen consists of two irregular fragments of light villegas soft tissue that in aggregate measure 0.8 x 0.4 x 0.1 cm. The specimen is totally submitted in one cassette. / CORINA:ger 04/05/2023 TC:3 CPT: 19694 x3, 84346 x2
--- NOTE | 2023-04-05 11:35 | OP.EGD_ITS ---
Patient Name: Marly Cano Procedure Date: 04/05/2023 11:14 AM Date of : 1950 Age: 72 Procedure: Upper GI endoscopy Indications: Functional Dyspepsia, Dysphagia, Heartburn Providers: Donato Hinkle DO Medicines: Monitored Anesthesia Care Patient Profile: This is a 72 year old female. Refer to note in patient chart for documentation of history and physical. Patient has symptoms of chronic abdominal cramping, chronic epigastric abdominal pain, chronic dyspepsia, chronic heartburn and chronic nausea. Complications: No immediate complications. Procedure: Pre-Anesthesia Assessment: - Prior to the procedure, a History and Physical was performed, and patient medications and allergies were reviewed. The patient is competent. The risks and benefits of the procedure and the sedation options and risks were discussed with the patient. All questions were answered and informed consent was obtained. Patient identification and proposed procedure were verified by the physician. Mental Status Examination: normal. Prophylactic Antibiotics: The patient does not require prophylactic antibiotics. Prior Anticoagulants: The patient has taken no previous anticoagulant or antiplatelet agents. ASA Grade Assessment: II - A patient with mild systemic disease. After reviewing the risks and benefits, the patient was deemed in satisfactory condition to undergo the procedure. The anesthesia plan was to use minimal sedation / analgesia (anxiolysis). Immediately prior to administration of medications, the patient was re-assessed for adequacy to receive sedatives. The heart rate, respiratory rate, oxygen saturations, blood pressure, adequacy of pulmonary ventilation, and response to care were monitored throughout the procedure. The physical status of the patient was re-assessed after the procedure. - Pre-procedure physical examination revealed no contraindications to sedation. After obtaining informed consent, the endoscope was passed under direct vision. Throughout the procedure, the patient's blood pressure, pulse, and oxygen saturations were monitored continuously. The Endoscope was introduced through the mouth, and advanced to second part of duodenum. After obtaining informed consent, the endoscope was passed under direct vision. Throughout the procedure, the patient's blood pressure, pulse, and oxygen saturations were monitored continuously.The upper GI endoscopy was accomplished without difficulty. The patient tolerated the procedure well. Scope In: 11:24:15 AM Scope Out: 11:29:26 AM Total Procedure Duration Time 0 hours 5 minutes 11 seconds Findings: No gross lesions were noted in the entire esophagus. The Z-line was irregular and was found 38 cm from the incisors. Biopsies were taken with a cold forceps for histology. Verification of patient identification for the specimen was done. Estimated blood loss was minimal. A small hiatal hernia was present. Patchy moderate inflammation characterized by erosions was found in the gastric body and in the gastric antrum. Biopsies were taken with a cold forceps for histology. Verification of patient identification for the specimen was done. Estimated blood loss was minimal. Patchy mildly erythematous mucosa without active bleeding and with no stigmata of bleeding was found in the duodenal bulb. Impression: - No gross lesions in esophagus. - Z-line irregular, 38 cm from the incisors. Biopsied. - Small hiatal hernia. - Bile gastritis. Biopsied. - Erythematous duodenopathy. Recommendation: - Discharge patient to home. - Resume previous diet. - Continue present medications. - Await pathology results. Procedure Code(s): --- Professional --- 16357, Esophagogastroduodenoscopy, flexible, transoral; with biopsy, single or multiple CPT copyright 2017 [employer]. All rights reserved. The codes documented in this report are preliminary and upon cpc coder review may be revised to meet current compliance requirements. Donato Hinkle DO 04/05/2023 11:35:10 AM This report has been signed electronically. Number of Addenda: 0 Note Initiated On: 04/05/2023 11:14 AM
--- NOTE | 2023-04-05 11:35 | OP.CCLET_ITS ---
04/05/2023 May Caldwell Re : Upper GI endoscopy procedure for Marly Caldwell This procedure was performed on Wednesday, April 05, 2023. My impressions and recommendations are as follows: Impressions : - No gross lesions in esophagus. - Z-line irregular, 38 cm from the incisors. Biopsied. - Small hiatal hernia. - Bile gastritis. Biopsied. - Erythematous duodenopathy. Recommendations : - Discharge patient to home. - Resume previous diet. - Continue present medications. - Await pathology results. My findings are described in the full procedure note, which is enclosed. If I can be of further assistance, please feel free to contact me at . Sincerely, Donato Hinkle DO 04/05/2023 11:35:10 AM This report has been signed electronically.
== END 2023-04-05 12:27 | disposition home or self-care (01) ==
LOC: EN 10:07 → AC 10:09
PROVIDERS: PCP Internal Medicine; Referring Provider Internal Medicine; Visit Provider Internal Medicine Gastroenterology
PROC: 0DJ08ZZ Inspection of Upper Intestinal Tract, Via Natural or Artificial Opening Endoscopic (ICD-10-PCS; CPT 43235; principal; 2023-04-05 11:10)
DX: K30 Functional dyspepsia (principal); M35.00 Sjogren syndrome, unspecified; K44.9 Diaphragmatic hernia without obstruction or gangrene; K29.50 Unspecified chronic gastritis without bleeding; K31.89 Other diseases of stomach and duodenum; E66.9 Obesity, unspecified; K21.9 Gastro-esophageal reflux disease without esophagitis; K59.00 Constipation, unspecified; I10 Essential (primary) hypertension; R13.10 Dysphagia, unspecified; Z68.31 Body mass index [BMI] 31.0-31.9, adult; Z90.49 Acquired absence of other specified parts of digestive tract; Z79.82 Long term (current) use of aspirin; Z79.899 Other long term (current) drug therapy; Z86.16 Personal history of COVID-19
CPT/HCPCS: 43239; 88305; 88313; 88342; J7120; J2405

== ENCOUNTER 2023-04-27 08:49 | Outpatient (CLI) | payer MEDICARE, SELFPAY ==
[2023-04-27 09:35] LABS: Erythrocyte Sedimentation Rate 7 mm/hr (0-30)
[2023-04-27 09:57] LABS: ALB/GLOB Ratio 0.9 RATIO (0.9-2.4); AST(SGOT) 33 U/L (15-37); Alanine Aminotransfer ALT/SGPT 27 U/L (13-56); Albumin, Serum 3.5 g/dL (3.2-5.0); Alkaline Phosphatase 97 U/L (45-117); Amylase 36 U/L (25-115); Anion Gap 6 (5-15); BUN 13 mg/dL (7-18); BUN/Creat Ratio 14.9 RATIO (10-20); CRP 5.85 mg/L (0.0-3.0); Calcium,Total 9.2 mg/dL (8.5-10.1); Chloride 108 mmol/L (98-107); Creatinine, Serum 0.87 mg/dL (0.55-1.02); EST Glomerular Filtration Rate 67 mL/min (>60); Est Glom Filt Rate - Afr Amer 82 mL/min (>60); Globulin 3.9 g/dL (2.2-4.2); Glucose 99 mg/dL (74-106); Lipase 37 U/L (13-75); Potassium 3.4 mmol/L (3.5-5.1); Protein, Total 7.4 g/dL (6.4-8.2); Sodium Level 141 mmol/L (136-145)
[2023-04-30 01:06] LABS: Anti-Centromere B Ab <0.2 AI (0.0-0.9); Anti-Chromatin <0.2 AI (0.0-0.9); Anti-Jo <0.2 AI (0.0-0.9); Anti-Scleroderma-70 AB <0.2 AI (0.0-0.9); Anti-dsDNA Ab <1 IU/mL (0-9); Beef <0.10 kU/L (Class 0); Chocolate <0.10 kU/L (Class 0); Clam <0.10 kU/L (Class 0); Codfish <0.10 kU/L (Class 0); Corn <0.10 kU/L (Class 0); Egg, White 0.29 kU/L (Class 0/I); Egg, Whole 0.16 kU/L (Class 0/I); Peanut <0.10 kU/L (Class 0); Pork <0.10 kU/L (Class 0); RNP Ab 0.2 AI (0.0-0.9); SCALLOP <0.10 kU/L (Class 0); SESAME SEED <0.10 kU/L (Class 0); SJOGREN'S Anti-SS-A test < 0.2 AI (0.0-0.9); SJOGREN'S Anti-SS-B test < 0.2 AI (0.0-0.9); Shrimp <0.10 kU/L (Class 0); Smith Ab <0.2 AI (0.0-0.9); Soybean <0.10 kU/L (Class 0); Walnut, (Food) <0.10 kU/L (Class 0); Wheat <0.10 kU/L (Class 0)
[2023-04-30 07:08] LABS: Albumin 4.1 g/dL (2.9-4.4); Alpha-1-Globulins 0.2 g/dL (0.0-0.4); Alpha-2-Globulins 0.7 g/dL (0.4-1.0); Cytoplasmic Ab (C-ANCA) <1:20 titer (Neg:<1:20); Endomysial Antibody IgA Negative (Negative); Gamma Globulin 0.9 g/dL (0.4-1.8); Gastrin, Serum 46 pg/mL (0-115); Immunoglobulin A 250 mg/dL (64-422); Immunoglobulin E 65 IU/mL (6-495); Immunoglobulin G 998 mg/dL (586-1602); Immunoglobulin M 83 mg/dL (26-217); Perinuclear Ab (P-ANCA) <1:20 titer (Neg:<1:20); t-Transglutaminase IgA <2 U/mL (0-3)
== END 2023-04-27 23:59 | disposition home or self-care (01) ==
PROVIDERS: PCP Internal Medicine; Referring Provider Internal Medicine Gastroenterology; Visit Provider Internal Medicine Gastroenterology
DX: R91.8 Other nonspecific abnormal finding of lung field (principal); K29.60 Other gastritis without bleeding
CPT/HCPCS: 36415; 80053; 82150; 82784; 82785; 82941; 83516; 83690; 84165; 85652; 86003; 86005; 86140; 86225; 86235; 86255; 86256; 86334

== ENCOUNTER → 2023-05-04 | Outpatient (CLI) | payer MEDICARE, SELFPAY ==
--- NOTE | 2023-05-04 08:55 | BI_ITS ---
MAMMOGRAPHY - BILATERAL SCREENING REASON FOR EXAM: Female, 72 years old. Routine annual screening examination. PERTINENT HISTORY: Aunts with breast cancer. TECHNIQUE: Digital bilateral breast ed (3D mammographic acquisition) in the CC and MLO projections. 2-D mediolateral oblique (MLO) and craniocaudad (CC) views of both breasts were obtained. CAD: Full Field Digital Mammography with Computer Added Detection was performed. COMPARISON: Comparison is made with prior study dated April 03, 2022. FINDINGS: Breast Composition: The breasts are heterogeneously dense, which may obscure small masses. There are no dominant masses or suspicious calcifications. Stable 6 mm well-defined nodule in the anterior upper lateral aspect of the left breast. Prior sonogram dated July 21, 2022 suggests this nodule to be a lymph node. Stable bilateral axillary lymph nodes. No other significant abnormalities are identified. There has been no significant change since the prior study. BI/SCRN MAMM (CAD)W/ED BILAT IMPRESSION: Stable bilateral screening mammogram. Yearly follow-up mammogram recommended. (A) ASSESSMENT CATEGORY: BIRADS Category 2: Benign. A letter regarding these results will be sent to the patient by the facility within 30 days. Approximately 10% of breast cancers are not detected by mammography. A normal mammogram should not delay biopsy of a clinically suspicious abnormality. [id number] Electronically Signed: Ru Hogue MD at 9:44 EDT ,
== END | disposition home or self-care (01) ==
LOC: OPBI 08:54
PROVIDERS: PCP Internal Medicine; Referring Provider Internal Medicine; Visit Provider Internal Medicine
DX: Z12.31 Encounter for screening mammogram for malignant neoplasm of breast (principal)
CPT/HCPCS: 77063; 77067

== ENCOUNTER → 2023-05-12 | Outpatient (CLI) | payer MEDICARE, SELFPAY ==
--- NOTE | 2023-05-12 10:09 | NM_ITS ---
CLINICAL: Female, 72 years old. Gastroparesis GASTRIC EMPTYING-SULFUR COLLOID TECHNIQUE: The patient was orally administered 1 mCi of Tc-sulfur colloid. Gamma camera imaging acquisitions at 1-60 minutes post radiopharmaceutical administration was performed. COMPARISON STUDIES : NM - None. CR - Not available for review at this time. CT - Not available for review at this time. MR - Not available for review at this time. US - Not available for review at this time. FINDINGS: There is normal filling and emptying of the stomach. 5min 13% 17.5 min percent emptyin% 30 min percent emptyin% 48 min percent emptyin% 60 min (1 hour) percent emptyin% NM/Gastric Emptying Study IMPRESSION: Normal gastric emptying nuclear medicine scan. Electronically Signed: Vasu Poon MD at 15:21 EDT ,
== END | disposition home or self-care (01) ==
LOC: NM 10:09
PROVIDERS: PCP Internal Medicine; Referring Provider Internal Medicine Gastroenterology; Visit Provider Internal Medicine Gastroenterology
DX: K29.60 Other gastritis without bleeding (principal); R91.8 Other nonspecific abnormal finding of lung field
CPT/HCPCS: 78264; A9541

== ENCOUNTER 2023-06-08 13:10 | Day surgery (SDC) | payer MEDICARE, SELFPAY ==
--- NOTE | 2023-06-08 13:46 | HP.PCM_ITS ---
History and Physical Date of Admission: 06/08/23 72 F who presents to the office today for a follow up. Prior workup:? Barium Swallow 11.01.20?without abnormality? *BGI established 02.26.23 with lower retrosternal for the last 9/12months.?Stop famotidine, start protonix.?EGD 04.05.23?irregular Zline 38cm; small hiatal hernia; gastritis, mild glandular atypia of uncertain significance; duodenitis.? Contact 04.21.23 to schedule repeat EGD and f/u in clinic after this.?? States that she continues to have epigastric pain, heartburn, upset stomach, and bloating. States she has felt no relief with the Protonix and still occasionally takes Pepcid to have some relief. States that she has tried changing her diet, eating smaller meals, and a probiotic with not much relief. ROS Const Constitutional: No fatigue, fever(s), frequent falls, headache(s) or weight change ENT ENT: No headache(s) or difficulty swallowing Cardio Cardiology: No leg pain with exertion Gastro GI: No abdominal pain, bloating, change in bowel habits, constipation, diarrhea, heartburn, difficulty swallowing, Vomiting blood/hematemesis, Blood in stool, nausea/dyspepsia or vomiting Musc Musculoskeletal: No abnormal gait, joint pain, back pain, joint swelling, muscle cramps, muscle weakness, numbness, stiffness, tingling, Arthritis, sciatica, leg pain at night or leg pain with exertion Skin Skin: No dry skin, lesions, itchy eyes or rash Neuro Neurology: No abnormal gait, dizziness, frequent falls, headache(s), numbness, tingling, tremor(s), Increased tone in limbs, paralysis or seizures Psych Psychiatric: No anxiety, No depression, No paranoia, No Behavioral Problems, No Compulsive Behavior, No hyperactivity, No inattentiveness, No obsessions/compulsions, No Temper Tantrums and No suicidal ideation Endo Endocrine: No fatigue or weight change Aller/Imm Allergy/Immunologic: No itchy eyes David/Lymp Hematologic/Lymphatic: No easy bleeding or easy bruising Exam Const General: cooperative and anxious Nutritional Appearance: obese Orientation: alert, awake and oriented x3 Eyes Sclera: sclerae normal Resp Effort & Inspection: normal respiratory effort GI Inspection: normal to inspection Palpation: soft, no hepatosplenomegaly, no masses and nontender Musc Other: tender to palpation at costochondral junctions Quality Reporting Tobacco Screening ([facility] 138) Smoking Status: Never smoker Assessment and Plan Assessment and Plan (1) Abnormal findings on esophagogastroduodenoscopy (EGD): Status: Suspected Plan: She was discovered to have atypical cells in the gastric body on her upper endoscopy. We will repeat her upper endoscopy for further specimen. I suspect that this is from bile induced gastritis. She will need a gastric emptying study along with autoimmune work-up. I also recommend for her to go on colestipol and possible ursodiol in the future. (2) Bile reflux gastritis: Status: Acute Orders: Orders ANCA Today K2.60 - Other gastritis without bleeding, R19.8 - Other specified symptoms and signs involving the digestive system and abdomen Celiac Disease Profile Today K2.60 - Other gastritis without bleeding, R19.8 - Other specified symptoms and signs involving the digestive system and abdomen Comprehensive Metabolic Profil Today K2.60 - Other gastritis without bleeding, R19.8 - Other specified symptoms and signs involving the digestive system and abdomen CRP Today K2.60 - Other gastritis without bleeding, R19.8 - Other specified symptoms and signs involving the digestive system and abdomen Erythrocyte Sed Rate Today K29.60 - Other gastritis without bleeding, R19.8 - Other specified symptoms and signs involving the digestive system and abdomen Immunoglobulin E Today K2.60 - Other gastritis without bleeding, R19.8 - Other specified symptoms and signs involving the digestive system and abdomen Amylase Today K2.60 - Other gastritis without bleeding, R19.8 - Other specified symptoms and signs involving the digestive system and abdomen Lipase Today K2.60 - Other gastritis without bleeding, R19.8 - Other specified symptoms and signs involving the digestive system and abdomen RICARDO + Protein Elect, Serum Today K29.60 - Other gastritis without bleeding, R19.8 - Other specified symptoms and signs involving the digestive system and abdomen NEAL Comprehensive Panel Today K2.60 - Other gastritis without bleeding, R19.8 - Other specified symptoms and signs involving the digestive system and abdomen Allergen, Food Profile Today K2.60 - Other gastritis without bleeding, R19.8 - Other specified symptoms and signs involving the digestive system and abdomen Allergen, Rast Food Profile Today K29.60 - Other gastritis without bleeding, R 19.8 - Other specified symptoms and signs involving the digestive system and abdomen Gastrin, Serum Today K29.60 - Other gastritis without bleeding, R19.8 - Other specified symptoms and signs involving the digestive system and abdomen Gastric Emptying Study Today K29.60 - Other gastritis without bleeding, R10.9 - Unspecified abdominal pain, R19.8 - Other specified symptoms and signs involving the digestive system and abdomen
[2023-06-08 13:50] VITALS: BP 136/65; PULSE 59; RESP 16; TEMP 35.9; O2SAT 99; BMI 29.1
[2023-06-08] MEDS: Lactated Ringers 1,000 ML 15 ML IV (13:54)
--- NOTE | 2023-06-08 14:30 | EGD_PTH ---
PATIENT: MALLORY TORRES LOC: EN U#:[id number] AGE/SX: 72/F ROOM: RE06/08/[address]: Dr. Donato Hinkle DO : 1950 BED: DIS: 06/08/2023 SPEC #: [id number] RECD: 06/08/23 17:11 STATUS: PAUL LIRIANO #: [id number] AMY: 06/08/23 14:[address]: Donato Hinkle DEPT: SURGICAL PATHOLOGY RECD BY: Amparo Monroe ENTERED: 06/09/23 10:51 SP TYPE: EGD BIOPSY OTHR DR: Dr. May Caldwell DO Tissues: Esophagus, NOS Procedures: Special Stain Group II Surgery Specimen Level IV Alcian Blue/PAS (control) HEADER OPERATION: EGD with biopsies and electrohemostasis PRE-OP DIAGNOSIS: Abnormal findings on EGD, bile reflux gastritis TISSUE SUBMITTED: Distal esophagus biopsies MICROSCOPIC DIAGNOSIS Distal esophagus, biopsy: Fragments of gastroesophageal mucosa with chronic inflammation. Intestinal metaplasia (goblet cell metaplasia) not identified. See comment. CORINA:ger 06/10/2023 COMMENT Alcian blue/PAS stain with matched control is used in the evaluation of the specimen. MICROSCOPIC DESCRIPTION Slides are reviewed. GROSS DESCRIPTION Received in fixative is one container labeled with the patient's name and designated distal esophagus biopsy. The specimen consists of multiple irregular fragments of light villegas soft tissue that in aggregate measure 1.4 x 0.3 x 0.1 cm. The specimen is totally submitted in one cassette. / CORINA:ger 06/09/2023 TC:3 CPT: 89985, 18495
[2023-06-08 14:50] VITALS: BP 127/69; BP 136/65; PULSE 66; RESP 18; TEMP 36.3; O2SAT 94
--- NOTE | 2023-06-08 14:54 | OP.EGD_ITS ---
Patient Name: Marly Cano Procedure Date: 06/08/2023 2:24 PM Date of : 1950 Age: 72 Procedure: Upper GI endoscopy Indications: Oliva's esophagus indefinite for dysplasia Providers: Donato Hinkle DO Referring MD: May Caldwell Medicines: Monitored Anesthesia Care Patient Profile: This is a 72 year old female. Refer to note in patient chart for documentation of history and physical. Patient has symptoms of chronic heartburn and chronic nausea. Complications: No immediate complications. Procedure: Pre-Anesthesia Assessment: - Prior to the procedure, a History and Physical was performed, and patient medications and allergies were reviewed. The risks and benefits of the procedure and the sedation options and risks were discussed with the patient. All questions were answered and informed consent was obtained. Patient identification and proposed procedure were verified by the physician in the pre-procedure area. Mental Status Examination: alert and oriented. Airway Examination: normal oropharyngeal airway and neck mobility. Respiratory Examination: clear to auscultation. CV Examination: normal. Prophylactic Antibiotics: The patient does not require prophylactic antibiotics. Prior Anticoagulants: The patient has taken no anticoagulant or antiplatelet agents. After reviewing the risks and benefits, the patient was deemed in satisfactory condition to undergo the procedure. The anesthesia plan was to use monitored anesthesia care (MAC). Immediately prior to administration of medications, the patient was re-assessed for adequacy to receive sedatives. The heart rate, respiratory rate, oxygen saturations, blood pressure, adequacy of pulmonary ventilation, and response to care were monitored throughout the procedure. The physical status of the patient was re-assessed after the procedure. After obtaining informed consent, the endoscope was passed under direct vision. Throughout the procedure, the patient's blood pressure, pulse, and oxygen saturations were monitored continuously. The Endoscope was introduced through the mouth, and advanced to the second part of duodenum. The upper GI endoscopy was accomplished without difficulty. The patient tolerated the procedure well. Scope In: 2:35:47 PM Scope Out: 2:44:06 PM Total Procedure Duration Time 0 hours 8 minutes 19 seconds Findings: There were esophageal mucosal changes secondary to established short-segment Oliva's disease present in the lower third of the esophagus. The maximum longitudinal extent of these mucosal changes was 2 cm in length. Mucosa was biopsied with a cold forceps for histology in a targeted manner at intervals of 1 cm in the lower third of the esophagus. One specimen bottle was sent to pathology. Verification of patient identification for the specimen was done. Estimated blood loss was minimal. A hiatal hernia was present. Patchy mild inflammation characterized by erythema was found in the gastric body. A benign-appearing, intrinsic moderate stenosis was found at the pylorus. This was traversed. The exam of the duodenum was otherwise normal. Impression: - Esophageal mucosal changes secondary to established short-segment Oliva's disease. Biopsied. - Hiatal hernia. - Bile gastritis. - Gastric stenosis was found at the pylorus. Recommendation: - Discharge patient to home. - Resume previous diet. - Continue present medications. - Await pathology results. Procedure Code(s): --- Professional --- 85888, Esophagogastroduodenoscopy, flexible, transoral; with biopsy, single or multiple CPT copyright 2021 [employer]. All rights reserved. The codes documented in this report are preliminary and upon supervisor extruding department review may be revised to meet current compliance requirements. Donato Hinkle DO 06/08/2023 2:53:10 PM This report has been signed electronically. Number of Addenda: 0 Note Initiated On: 06/08/2023 2:24 PM
--- NOTE | 2023-06-08 14:54 | OP.CCLET_ITS ---
06/08/2023 May Caldwell Re : Upper GI endoscopy procedure for Marly Caldwell This procedure was performed on Thursday, June 08, 2023. My impressions and recommendations are as follows: Impressions : - Esophageal mucosal changes secondary to established short-segment Oliva's disease. Biopsied. - Hiatal hernia. - Bile gastritis. - Gastric stenosis was found at the pylorus. Recommendations : - Discharge patient to home. - Resume previous diet. - Continue present medications. - Await pathology results. My findings are described in the full procedure note, which is enclosed. If I can be of further assistance, please feel free to contact me at . Sincerely, Donato Hinkle, 06/08/2023 2:53:10 PM This report has been signed electronically.
[2023-06-08 14:55] VITALS: BP 136/65; BP 137/66; PULSE 60; RESP 14; O2SAT 100
[2023-06-08 15:00] VITALS: BP 131/63; BP 136/65; PULSE 61; RESP 18; O2SAT 99
[2023-06-08 15:04] VITALS: BP 136/65; BP 136/66; PULSE 61; RESP 18; TEMP 36; O2SAT 100
[2023-06-08 15:41] VITALS: BP 136/65
== END 2023-06-08 15:33 | disposition home or self-care (01) ==
LOC: EN 13:12 → AC 13:13
PROVIDERS: PCP Internal Medicine; Referring Provider Internal Medicine; Visit Provider Internal Medicine Gastroenterology
PROC: 0DJ08ZZ Inspection of Upper Intestinal Tract, Via Natural or Artificial Opening Endoscopic (ICD-10-PCS; CPT 43235; principal; 2023-06-08 14:25)
DX: K22.70 Barrett's esophagus without dysplasia (principal); K44.9 Diaphragmatic hernia without obstruction or gangrene; K31.1 Adult hypertrophic pyloric stenosis; K29.60 Other gastritis without bleeding; K21.9 Gastro-esophageal reflux disease without esophagitis; I10 Essential (primary) hypertension; E78.00 Pure hypercholesterolemia, unspecified; M79.7 Fibromyalgia; Z90.49 Acquired absence of other specified parts of digestive tract; Z79.82 Long term (current) use of aspirin; Z79.899 Other long term (current) drug therapy
CPT/HCPCS: 43239; 88305; 88313; J7120; J2405

== ENCOUNTER → 2023-11-15 | Outpatient (CLI) | payer MEDICARE, SELFPAY ==
--- NOTE | 2023-11-15 13:50 | CT_ITS ---
STUDY: CT ABDOMEN AND PELVIS WITH CONTRAST REASON FOR EXAM: Female, 73 years old. Abdominal/back pain RADIATION DOSAGE (If Supplied By Facility): CTDIvol = ( 17.23 ) mGy, DLP = ( 942.67 ) mGycm TECHNIQUE: Transaxial images were obtained from the dome of the diaphragm to the symphysis pubis with oral contrast. Oral and amp; IV Readi-CAT and amp; 100mL Isovue-300 was administered. Sagittal and coronal images were reconstructed. Individualized dose optimization techniques were used for this CT. COMPARISON: Comparison is made with prior study of December 21, 2018. FINDINGS: The visualized lung bases are unremarkable. The visualized portions of the heart are within normal limits. There is decreased attenuation of the liver consistent with steatosis. The patient is status post cholecystectomy. Normal spleen. Normal pancreas. Normal bilateral adrenal glands. There is a 7.6 mm cyst in the lateral midportion of the right kidney. Normal left kidney. Normal visualized stomach. Normal small intestine. Normal colon. The appendix is visualized and appears normal. There is scattered atherosclerotic calcification of the abdominal aorta, without a demonstrated aneurysm. Normal inferior vena cava. Normal retroperitoneum. Normal urinary bladder. There is thickening of the endometrium. This is abnormal for a postmenopausal woman. Calcified phleboliths are seen in the pelvis. Normal abdominal wall. Hemangiomas of the L1, L2 and L4 vertebrae. CT/Abdomen/Pelvis WITH Contrast IMPRESSION: Technically the endometrium for the patient''s age. Fatty infiltration of the liver. Status post cholecystectomy. Electronically Signed: Ru Hogue MD at 14:41 EST ,
[2023-11-15 14:08] LABS: CREATININE FINGERSTICK < 1.0 mg/dL (0.55-1.02); EGFR FINGERSTICK > 60.0000 mL/min (>60)
== END | disposition home or self-care (01) ==
LOC: CT 13:38
PROVIDERS: PCP Internal Medicine; Referring Provider Internal Medicine Gastroenterology; Visit Provider Internal Medicine Gastroenterology
DX: R10.9 Unspecified abdominal pain (principal)
CPT/HCPCS: 74177; Q9967

== ENCOUNTER → 2023-12-17 | Outpatient (CLI) | payer MEDICARE, SELFPAY ==
--- NOTE | 2023-12-17 09:08 | US_ITS ---
STUDY: ABDOMINAL ULTRASOUND - RIGHT UPPER QUADRANT; ELASTOGRAPHY REASON FOR VISIT: Female, 73 years old. Fatty infiltration of the liver. TECHNIQUE: Ultrasound evaluation of the right upper quadrant was performed with real-time and static crenshaw-scale imaging. Point quantification shear wave elastography was performed ([employer]). TECHNICAL QUALITY: Adequate. COMPARISON: Comparison is made with prior CT scan the abdomen and pelvis dated November 15, 2023. FINDINGS: Liver: The liver measures 13.3 cm. There is increased echogenicity consistent with fatty infiltration. The bile ducts are within normal limits. There is hepatic color flow. The direction of portal flow is hepatopetal. There is no demonstrated mass lesion. Median liver stiffness measured 6.2 kPa. Gallbladder: The patient is status post cholecystectomy. Common Bile Duct (C.B.D.): The common bile duct is dilated and measures 9.7 mm. Pancreas: There is normal echogenicity of the visualized pancreas. There is no demonstrated pancreatic mass or cyst. Right Kidney: Normal size of the right kidney. The right kidney measures 11.1 cm x 4.9 cm x 4.1 cm. Normal renal cortex. The right cortex measures 1.2 cm. There is a 1.3 cm x 1.2 cm x 1.1 cm cyst in the lateral midportion of the There is no right hydronephrosis. US/ABD Limited w/ Elastography IMPRESSION: 1. Liver stiffness measures 6.2 kPa compatible with F2-F3 (Mild to moderate liver fibrosis) Metavir score. Electronically Signed: Ru Hogue MD at 14:03 EDT ,
== END | disposition home or self-care (01) ==
LOC: US 09:07
PROVIDERS: PCP Internal Medicine; Referring Provider Internal Medicine Gastroenterology; Visit Provider Internal Medicine Gastroenterology
DX: K76.0 Fatty (change of) liver, not elsewhere classified (principal)
CPT/HCPCS: 76705; 76981

== ENCOUNTER → 2023-12-20 | Outpatient (CLI) | payer MEDICARE, SELFPAY ==
--- NOTE | 2023-12-20 14:49 | US_ITS ---
STUDY: ULTRASOUND OF THE FEMALE PELVIS - COMPLETE REASON FOR EXAM: Female, 73 years old. Thickened endometrium LMP: Patient is postmenopausal. TECHNIQUE: Transabdominal and Transvaginal TECHNICAL QUALITY: Adequate. COMPARISON: Comparison is made with prior CT scan of the abdomen and pelvis dated November 15, 2023. FINDINGS: The uterus is anteverted and is in a midline position. The uterus measures 8.3 cm x 4.5 cm by 2.6 cm. There is a Nabothian cyst of the cervix. The endometrium is thickened and measures 14 mm in thickness, and is hyperechoic with cystic changes. There is no demonstrated endometrial mass. There is no demonstrated myometrial mass. I.U.D. - The patient does not have an I.U.D. The right ovary is non-visualized. The left ovary is non-visualized. There is no fluid in the cul-de-sac. The pre void volume of the bladder was 158 ml. US/Pelvic w/ Transvaginal IMPRESSION: Endometrial thickening. Electronically Signed: Ru Hogue MD at 13:02 EDT ,
== END | disposition home or self-care (01) ==
LOC: US 14:48
PROVIDERS: PCP Internal Medicine; Referring Provider Obstetrics & Gynecology; Visit Provider Obstetrics & Gynecology
DX: R93.89 Abnormal findings on diagnostic imaging of other specified body structures (principal)
CPT/HCPCS: 76830; 76856

== ENCOUNTER 2023-12-23 14:30 | Outpatient (RCR) | payer MEDICARE, SELFPAY ==
--- NOTE | 2023-11-26 16:27 | HP.PTEVAL_ITS ---
Patient's Visit Information Visit Information Visit Information: MALLORY TORRES is a 73 year old F referred to Physical Therapy by Dr. May Caldwell DO with a diagnosis of LOW BACK PAIN. Date of Evaluation: 11/26/23 Physical Therapist: Benjamin Rodriguez PT, Cert MDT, OCS Visit Plan Frequency: 2x /Week Duration: 4 Weeks Plan: PT INTERVETIONS DLS ,POSTURAL EX'S ,LE FLEXABLITY , PATIENT EDUCATION/ACTIVITY MODIFICATION AND BLE STRENGTHENING Subjective Subjective: This 73 y/o female presents to physical therapy with low back pain. Patient has lumbar pain ~ [address] Caldwell with routine visit ,did x-rays showed DDD. Patient had Hydrocodone . Patient has had no pain management . Aggravating factors standing ,walking ,job demands ,lifting heavy and bending. Alleviating rest and medication. Denies paresthesia/tingling-. Bowel/bladder -. Coughing/sneezing -. Location right side . Patient pain affects sleeping. Patient ahs no treatment . Patient has no trauma. Patient pain affects QOL and function. Patient goals to decrease pain. 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) Pain Right Back: Pain Intensity (Out of 10): 4 Pain Intensity Range: 10 Objective Objective: POSTURE: mild forward posture GAIT: reciprocal pattern mild forward posture PALAPATION: unremarkable FLEXABLITY: hamstrings mod tight LUMBAR ROM: flexion min ,extension min ,side glides min loss MMT: quads/hams 4/5 ,hip flexion /abduction 4-/5,ankle 5/5 Special Tests L/S Slump test left side: Negative L/S Slump test right side: Negative L/S Left Straight Leg Raise: Negative L/S Right Straight Leg Raise: Negative Lumbar Standing: Flexion - Mechanical Response: No effect Lumbar Standing: Flexion - Symptoms During Testing: No effect Lumbar Standing: Flexion - Symptoms After Testing: No effect Lumbar Standing: Extension - Mechanical Response: No effect Lumbar Standing: Extension - Symptoms During Testing: No effect Lumbar Standing: Extension - Symptoms After Testing: No effect Lumbar Standing: Right Side Glides - Mechanical Response: No effect Lumbar Standing: Right Side [place] - Symptoms During Testing: No effect Lumbar Standing: Right Side [place] - Symptoms After Testing: No effect Lumbar Standing: Left Side [place] - Mechanical Response: No effect Lumbar Standing: Left Side [place] - Symptoms During Testing: No effect Lumbar Standing: Left Side [place] - Symptoms After Testing: No effect Balance/Special Test Scores Oswestry Low Back Score: 18 Goals Goal 1:: Patient to be I with HEP for back Goal Time Frame: 4-6 Weeks Goal 2:: Patient to demonstrate 50% improvement with less pain and improved function Goal Time Frame: 4-6 Weeks Goal 3:: Patient to improve lumbar ROM for 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 Goal Time Frame: 4-6 Weeks Goal 4:: Patient to improve back oswestry score by 5 points to improve QOL and function Goal Time Frame: 4-6 Weeks Rehabilitation Potential Physical Therapy Diagnosis: This patient has lumbar pain with increase ROM ,postural related pain ,impairs ADLS and job demands thus benefit from skilled PT Rehabilitation Potential: Good Anticipated Interventions Patient/Client Instruction: Educate patient on: Condition and Plan of Care For the Purpose of:: To decrease pain, To increase ROM, To improve muscle performance and motor function, To improve ability to perform ADL's, To increase tolerance to activity/condition/position, To improve ability of physical actions for home/community/work/leisure, To improve health of tissue, To decrease soft tissue restriction, To increase flexibility/ROM and To reduce risk of recurrence Therapeutic Exercise to Include: Strength training, Body mechanics, Postural training, Flexibilty training and Dynamic Lumbar Stabilization Comment: BLE For the Purpose of:: To decrease pain, To increase ROM, To improve muscle performance and motor function, To increase tolerance to activity/condition/position, To improve ability of physical actions for home/community/work/leisure, To improve health of tissue, To decrease soft tissue restriction and To increase flexibility/ROM TENS: Yes IF ES: Yes Cryotherapy (ice pack, ice massage): Yes Thermo therapy (hot pack): Yes Ultrasound (thermal/non thermal): Yes For the Purpose of:: To decrease pain, To improve nutrient delivery to tissue, To increase oxygenation perfusion, To improve health of tissue and To decrease soft tissue restriction Text: Thank you for the opportunity to evaluate your patient. For Medicare and Medicare HMO plans, please review the plan of care and approve it. It will need to be FAXED BACK to us at [phone] for Medicare purposes. For Medicare only, by signing this I certify the plan of care. Please let me know if there are questions or concerns regarding this plan of care. Physician Signature: Date:
--- NOTE | 2023-12-23 15:13 | HP.PTDCSUM_ITS ---
Discharge Summary D/C summary: It has been my pleasure to treat MALLORY TORRES referred by Dr. May Caldwell DO, with the diagnosis of LOW BACK PAIN for a total of 8 visit(s). Discharge Date: 12/23/23 Please see the following information for a summary of their discharge status. 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 Pain Right Back: Pain Intensity (Out of 10): 0 R thoracic: Pain Intensity (Out of 10): 0 Overall Improvement % Improvement: 15 Objective Objective/Function: POSTURE: mild forward posture GAIT: reciprocal pattern mild forward posture PALAPATION: unremarkable FLEXABLITY: hamstrings mod tight LUMBAR ROM: flexion min ,extension min ,side glides min loss MMT: quads/hams 4/5 ,hip flexion /abduction 4-/5,ankle 5/5 Goals Goal 1:: Patient to be I with HEP for back Goal Progress: Goal Met Goal 2:: Patient to demonstrate 50% improvement with less pain and improved function Goal Progress: Progressing Goal 3:: Patient to improve lumbar ROM for 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 Goal Progress: Progressing Goal 4:: Patient to improve back oswestry score by 5 points to improve QOL and function Goal Progress: Progressing Plan Plan: D/C TO HEP D/C Information Discharge Comments: HEP d/c sentence: If there are questions or concerns regarding this patient's physical therapy, please feel free to call me at [phone]. Thank you for the referral of this patient. Sincerely, Benjamin Rodriguez, PT, Cert MDT, OCS Balance/Gait/Functional tests Balance/Special Test Scores Oswestry Low Back Score: 18 Oswestry Neck Score: 13 Improvement % Improvement: 15
== END 2023-12-23 19:00 | disposition home or self-care (01) ==
LOC: PT 14:30
PROVIDERS: PCP Internal Medicine; Referring Provider Internal Medicine; Visit Provider Internal Medicine
DX: M54.50 Low back pain, unspecified (principal)
CPT/HCPCS: 97110; 97112; 97162; 97530

== ENCOUNTER → 2023-12-23 | Outpatient (CLI) | payer MEDICARE, SELFPAY ==
--- NOTE | 2023-12-23 | EMB_PTH ---
PATHOLOGY RESULTS PATIENT: MALLORY TORRES LOC: [facility] U#:[id number] AGE/SX: 73/F ROOM: RE12/23/[address]: SANDER Ricci : 1950 BED: DIS: 12/23/2023 SPEC #: [id number] RECD: 12/24/23 07:13 STATUS: PAUL LIRIANO #: [id number] AMY: 12/23/23 00:[address]: Andie Simmons NP DEPT: SURGICAL PATHOLOGY RECD BY: Maritza Jenkins ENTERED: 12/24/23 07:13 SP TYPE: ENDOM BX/C ANABEL DR: Dr. May Caldwell DO Tissues: Endometrium, NOS Procedures: Surgery Specimen Level IV HEADER OPERATION: Endometrial biopsy PRE-OP DIAGNOSIS: Thickened endometrium TISSUE SUBMITTED: Endometrial lining MICROSCOPIC DIAGNOSIS Endometrial lining, biopsy; Scant strips of benign endometrial epithelium and benign endocervical cells. See comment. CORINA/ 12/27/2023 COMMENT Clinical correlation and appropriate follow up are necessary. MICROSCOPIC DESCRIPTION Slides are reviewed. GROSS DESCRIPTION Received in fixative is one container labeled with the patient's name and designated Endometrial biopsy. The specimen consists of a scant amount of soft tissue. The specimen is totally submitted for cell block preparation. CORINA/ 12/24/23 TC:4 CPT: 00068
== END | disposition home or self-care (01) ==
LOC: LABSPEC 17:18
PROVIDERS: PCP Internal Medicine; Referring Provider Nurse Practitioner Women's Health; Visit Provider Nurse Practitioner Women's Health
DX: N85.01 Benign endometrial hyperplasia (principal)
CPT/HCPCS: 88305

== ENCOUNTER 2024-01-18 13:18 | Day surgery (SDC) | payer MEDICARE, SELFPAY ==
[2024-01-18] VITALS (8 sets, daily range): BP systolic 130–163; BP diastolic 66–90; PULSE 55–85; RESP 16–17; TEMP 36.2–36.8; O2SAT 65–100; BMI 28.6
--- NOTE | 2024-01-18 07:43 | HP.PCM_ITS ---
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 Operator Required: No Is patient in pain?: No Allergies citalopram Allergy (Intermediate, Verified 01/12/24 10:52) Otherduloxetine [From Cymbalta] Adverse Reaction (Intermediate, Verified 01/12/24 10:52) groggy,fatigue Medications amlodipine 5 mg tablet 5 mg PO DAILY BP 06/17/18 [History Confirmed 01/12/24] coenzyme Q10 100 mg capsule 100 mg PO QHS 06/17/18 [History Confirmed 01/12/24] triamcinolone acetonide 55 mcg nasal spray aerosol (Nasacort) 2 spray intranasal DAILY 12/01/19 [History Confirmed 01/12/24] cholecalciferol (vitamin D3) 50 mcg (2,000 unit) tablet 25 mcg PO DAILY 01/08/21 [History Confirmed 01/12/24] vitamins A,C,X-oomm-hecezi 4,296 mcg-226 mg-90 mg capsule (PreserVision AREDS) 1 cap PO BID 12/26/21 [History Confirmed 01/12/24] Lactobacillus acidophilus 250 million cell capsule (Probiotic Acidophilus) 500 mmu cells PO DAILY 06/04/23 [History Confirmed 01/12/24] pantoprazole 40 mg tablet,delayed release 40 mg PO QAM #90 tabs 08/26/23 [Rx Confirmed 01/12/24] cholestyramine (with sugar) 4 gram oral powder 4 g PO 3XW 01/10/24 [History Confirmed 01/12/24] pravastatin 20 mg tablet 20 mg PO QHS 01/10/24 [History Confirmed 01/12/24] hydrocodone-acetaminophen 5-325mg 5mg-325mg 1 tab PO Q8H PRN PRN pain 01/11/24 [History Confirmed 01/12/24] Is last menstrual period known: No Post menopausal: Yes Patient : No : No [facility] Medical History Alcohol use Anxiety and depression Cardiology follow-up encounter Diffuse cystic mastopathy of unspecified breast Essential hypertension Fibromyalgia GERD (gastroesophageal reflux disease) Hemorrhoids High cholesterol History of echocardiogram History of edema History of Holter monitoring History of stress test Impaired fasting glucose Low vitamin D level Non-smoker Osteopenia Overactive bladder Post-menopausal Restless legs Shortness of breath on exertion Syncope Wears hearing aid Surgical History History of appendectomy History of cholecystectomy History of colonoscopy History of esophagogastroduodenoscopy (EGD) History of left heart catheterization (LHC) (~12/08/19) Family History Mother Myocardial infarction, Onset Age: 56 Heart valve replacedFather CAD (coronary artery disease) History of coronary artery bypass surgery Cancer ProstateBrother HypertensionBrother Hypertension Social History Smoking Status: Never smoker alcohol intake: never substance use type: does not use caffeine: Yes what type of physical activity do you participate in: none seatbelt use: always do you feel safe at home: Yes additional social history: - Justino HPI D&C Details: MALLORY TORRES is a 73 year old who presents for pre-op hysteroscopy D&C. She has a thickened endometrium of 14 mm and unsatisfactory EMB. No current bleeding, cramping, bloating, or weight loss. 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 History 2 Elective abortions Hx Para 2 Spontaneous abortions Hx # Term Pregnancies Ectopic pregnancies Hx # Pregnancies Multiple births # of living children Past Pregnancies Del. Date Name GA/Weeks Outcome Route Bth Weight Gen Labor Lgth Anesthesia Del Locatn Provider FOB Unknown Isidro Unknown Jacqui ROS Const ROS Unobtainable: All systems reviewed & are unremarkable except as noted in H Resp Resp: Reports system reviewed and no additional complaints, except as documented; Denies cough GI GI: Reports as per HPI Psych Psych: Reports system reviewed and no additional complaints, except as documented Exam Const General: cooperative, healthy appearing, comfortable and no acute distress Resp Effort & Inspection: normal respiratory effort Skin General: no rashes or lesions noted Psych Appearance: grossly normal Speech and Movement: speech and movement normal Coding Level of Care Code Off vis,est,level 4 Diagnoses Thickened endometrium R93.89 Assessment and Plan Assessment and Plan (1) Thickened endometrium: Status: Acute Comment: EMB benign but scant Plan: After discussing the patient's diagnosis and treatment plan options, patient wishes to proceed with surgical management. I have discussed with the patient the risks, benefits, and alternatives of the procedure which include but are not limited to risks of anesthesia, bleeding, infection, possible damage to bowel, bladder, or surrounding vasculature which could lead to additional surgery to evaluate any complications. Patient agrees to procedure and wishes to proceed. ACOG/uptodate references given for additional information regarding procedure. plan for hysteroscopy dilation and curettage.
[2024-01-18] MEDS: Lactated Ringers 1,000 ML 15 ML IV ×2 (13:49→16:15)
[2024-01-18 14:02] LABS: Hematocrit 41.4 % (37-47); Hemoglobin 13.6 g/dL (12.0-15.0); Mean Corp Hgb Conc 32.9 g/dL (32-36); Mean Corpuscular Hgb 29.5 pg (27.0-32.0); Mean Corpuscular Volume 89.8 fL (81-99); Mean Platelet Vol. 10.8 fl (6.2-12.0); Platelet Count 262 K/mm3 (150-450); RBC Distribution Width SD 45.9 fl (35.1-43.9); Red Blood Count 4.61 M/mm3 (4.2-5.4); White Blood Count 7.9 K/mm3 (4.4-11.0)
--- NOTE | 2024-01-18 14:51 | DCINST_ITS ---
Discharge Instructions Diet Discharge Diet: No restrictions Activity Discharge Activity: Return to Normal Activity, May Shower and May Take a Tub Bath (after 1 week) May resume sexual activity in: 1-2 weeks Weight Bearing Status: Weight bearing as tolerated Lifting Restrictions: none Additional Activity Instructions:: take up to 1000mg of tylenol twice a day and 600 mg of motrin or ibuprofen every 6 hours as needed for cramping. Dressing / Incision Call your doctor if you observe: Fever of 101 or Higher, Using more than 1 pad per hour, Shortness of breath and Uncontrolled pain Follow Up Care Please Follow Up With: Josefina Garcia DO When: Call [phone] to schedule appointment. Test Results: Test results from this visit will be discussed in further detail at your follow- up appointment, if applicable. Discharge Plan Admission Primary Reason for Your Visit: hysteroscopy dilation and curettage Attending Provider: Josefina Garcia Primary Care Provider: May Caldwell Discharge Orders/Prescriptions Prescriptions: Continued triamcinolone acetonide [Nasacort] 55 mcg aerosol,spray 2 spray INTRANASAL DAILY Rx Instructions: administer into each nostril cholecalciferol (vitamin D3) 50 mcg (2,000 unit) tablet 25 mcg PO DAILY PreserVision AREDS [id number] capsule 1 cap PO BID cholestyramine (with sugar) 4 gram powder 4 g PO 3XW Rx Instructions: administer w/meal; avoid other meds within 1hr before or 4-6hr after dose amlodipine 5 MG tablet 5 mg PO DAILY coenzyme Q10 100 MG capsule 100 mg PO QHS Probiotic Acidophilus 1.5 mg (250 million cell) capsule 500 mmu cells PO DAILY pravastatin 20 mg tablet 20 mg PO QHS Patient Comments: TAKE 1 TABLET BY MOUTH AT BEDTIME hydrocodone-acetaminophen 5-325 mg tablet 1 tab PO Q8H PRN PRN (Reason: pain) pantoprazole 40 mg tablet,delayed release (DR/EC) 40 mg PO QAM Qty: 90 1RF Referrals / Follow Up: May Caldwell DO [Primary Care Provider] - Disposition Disposition (needs filled in before D/C Order can be placed): Home, Self Care
[2024-01-18] MEDS: Lidocaine 1% (20 ml mdv) 20 ML Vial (15:00)
--- NOTE | 2024-01-18 15:00 | EMB_PTH ---
PATIENT: MALLORY TORRES LOC: [facility] – [place] U#:[id number] AGE/SX: 73/F ROOM: RE01/18/[address]: Dr. Josefina Garcia DO : 1950 BED: DIS: 01/18/2024 SPEC #: [id number] RECD: 01/18/24 16:15 STATUS: PAUL LIRIANO #: [id number] AMY: 01/18/24 15:[address]: Josefina Garcia DEPT: SURGICAL PATHOLOGY RECD BY: Amparo Monroe ENTERED: 01/19/24 10:58 SP TYPE: ENDOM BX/C OTHR DR: Dr. May Caldwell DO Tissues: Endometrium, NOS Procedures: Surgery Specimen Level IV HEADER OPERATION: Hysteroscopy, Dilation and Curettage PRE-OP DIAGNOSIS: Thickened endometrium TISSUE SUBMITTED: Endometrial Curettings MICROSCOPIC DIAGNOSIS Endometrial Curettings: Fragments of endometrial polyp with simple cystic endometrial hyperplasia without atypia. SJ/mr 4/11/24 COMMENT The results of immunohistochemistry for Helicobacter pylori will be reported separately ([id number]). MICROSCOPIC DESCRIPTION Slides are reviewed. GROSS DESCRIPTION Received in fixative is one container labeled with the patient's name and designated Endometrial Curettings. The specimen consists of multiple irregular fragments of rubbery pink-white hemorrhagic tissue that in aggregate measure 2.5 x 2.5 x 0.3 cm. The specimen is totally submitted in two cassettes. The largest fragment is submitted in cassette #1. The remainder of the fragments are submitted in cassette #2. AM/mr 01/19/2024 TC:5 CPT:08431
--- NOTE | 2024-01-18 15:18 | OP.PCM_ITS ---
Problems Associated Problem List Diagnoses (1) Thickened endometrium: Report of Operation Date of Procedure: 01/18/24 Pre-Operative Diagnosis: Thickened postmenopausal endometrium, inconclusive EMB Post-Operative Diagnosis: Thickened postmenopausal endometrium, inconclusive EMB Surgery/Procedure Performed:: hysteroscopy dilation and curettage, removal of uterine mass Description of Surgical Findings:: polyp or small fibroids within the endometrium Surgeon: Josefina Garcia medical social worker: None Type of Anesthesia: MAC and Topical Anesth Specimen's removed: endometrial curettings Estimated Blood Loss (mL): 10cc Description of Procedure: Patient was prepped and draped in a normal sterile fashion under MAC anesthesia. A weighted speculum was placed in the vagina and the anterior lip of the cervix was grasped with a single-tooth tenaculum. A paracervical block was placed with 1% lidocaine. Cervix was progressively dilated to allow passage of a 5 mm hysteroscope. The lining was fully visualized and noted to have multiple small masses or polyp like structures. The uterus sounded to 7 cm. Curettage and polypectomy was performed and 1 2.5 x 0.5 cm lesion was removed first followed by several small pieces of the same appearing tissue. These were sent to pathology. All instruments were removed from the vagina and excellent hemostasis was noted. Patient was awoken and taken to recovery in stable co ndition. Procedure Start Time: 15:00 Procedure Stop Time: 15:18 Admit VTE Documentation VTE Present on Admission: No VTE Mechan Device Prophylaxis: SCD's VTE Pharm Prophylaxis ordered?: No Multi Select Codes Urinary/Genital Urinary/Genital CPT Codes: 47208 Hysteroscopy,EMC, Polypectomy
--- NOTE | 2024-01-18 16:40 | RAD_ITS ---
INDICATION: chets pain -- wants pt to be standing for the images. EXAMINATION/TECHNIQUE: X-RAY - XR Chest 2 Views COMPARISON: FINDINGS: LINES/DEVICES: None. LUNGS: No consolidation, edema or effusion. Mild interstitial prominence. No pneumothorax. MEDIASTINUM AND CARDIOVASCULAR STRUCTURES: Cardiac silhouette not enlarged. Central airways and mediastinal contour are unremarkable. BONES AND SOFT TISSUES: Unremarkable. RAD/Chest PA and Lateral IMPRESSION: Mild interstitial prominence. Electronically Signed: Adam Yosusef DO at 18:04 EDT ,
== END 2024-01-18 18:19 | disposition home or self-care (01) ==
LOC: SDC 13:18 → AC 13:20
PROVIDERS: PCP Internal Medicine; Referring Provider Obstetrics & Gynecology; Visit Provider Obstetrics & Gynecology
PROC: 0UDB8ZZ Extraction of Endometrium, Via Natural or Artificial Opening Endoscopic (ICD-10-PCS; CPT 58558; principal; 2024-01-18 14:50)
DX: N85.01 Benign endometrial hyperplasia (principal); I10 Essential (primary) hypertension; E78.00 Pure hypercholesterolemia, unspecified; Z79.899 Other long term (current) drug therapy
CPT/HCPCS: 58558; 00952; 71046; 85027; 86850; 86900; 86901; 88305; J7120; J2405

== ENCOUNTER 2024-03-07 09:13 | Day surgery (SDC) | payer MEDICARE, SELFPAY ==
--- NOTE | 2024-02-28 08:22 | EKG12_ITS ---
Test Reason : PRE OP Blood Pressure : / mmHG Vent. Rate : 079 BPM Atrial Rate : 079 BPM P-R Int : 138 ms QRS Dur : 078 ms QT Int : 380 ms P-R-T Axes : 057 016 057 degrees QTc Int : 435 ms Normal sinus rhythm Normal ECG Confirmed by Aj Knight ([id number]), editorial project manager LINNETTE COYLE ([id number]) on 02/28/2024 1:03:35 PM Referred By: Josefina Garcia Confirmed By:Aj Knight
[2024-02-28 09:46] LABS: Hematocrit 37.7 % (37-47); Hemoglobin 12.3 g/dL (12.0-15.0); Mean Corp Hgb Conc 32.6 g/dL (32-36); Mean Corpuscular Hgb 29.6 pg (27.0-32.0); Mean Corpuscular Volume 90.8 fL (81-99); Mean Platelet Vol. 11.1 fl (6.2-12.0); Platelet Count 236 K/mm3 (150-450); RBC Distribution Width CV 13.8 % (11.6-14.6); RBC Distribution Width SD 46.6 fl (35.1-43.9); Red Blood Count 4.15 M/mm3 (4.2-5.4); White Blood Count 5.9 K/mm3 (4.4-11.0)
[2024-02-28 10:21] LABS: AST(SGOT) 20 U/L (15-37); Alanine Aminotransfer ALT/SGPT 20 U/L (13-56); Albumin, Serum 3.5 g/dL (3.2-5.0); Alkaline Phosphatase 92 U/L (45-117); Anion Gap 5 (5-15); BUN 20 mg/dL (7-18); BUN/Creat Ratio 27.5 RATIO (10-20); Calcium,Total 9.4 mg/dL (8.5-10.1); Chloride 109 mmol/L (98-107); Creatinine, Serum 0.73 mg/dL (0.55-1.02); EST Glomerular Filtration Rate 83 mL/min (>60); Est Glom Filt Rate - Afr Amer 100 mL/min (>60); Globulin 3.5 g/dL (2.2-4.2); Glucose 89 mg/dL (74-106); Potassium 3.9 mmol/L (3.5-5.1); Sodium Level 142 mmol/L (136-145)
[2024-02-28 11:14] LABS: Magnesium 2.4 mg/dL (1.6-2.6)
[2024-03-07] VITALS (13 sets, daily range): BP systolic 133–161; BP diastolic 59–85; PULSE 62–83; RESP 14–16; TEMP 36.8–37.1; O2SAT 95–100; BMI 29.2
--- NOTE | 2024-03-07 09:35 | HP.PCM_ITS ---
History and Physical Date of Admission: 03/07/24 Intake Vital Signs 02/03/2414:01 02/17/2411:13 Height 5 ft 4 in 5 ft 4 in Weight: 169 lb 6 oz BMI 29.0 BP 144/75 H Intake Visit Reasons: robotic hyst. BSO cysto Oxidation Engineer Required: No Is patient in pain?: No Allergies citalopram Allergy (Intermediate, Verified 02/18/24 11:13) Otherduloxetine [From Cymbalta] Adverse Reaction (Intermediate, Verified 02/18/24 11:13) groggy,fatigue Medications amlodipine 5 mg tablet 5 mg PO DAILY BP 06/17/18 [History Confirmed 02/18/24] coenzyme Q10 100 mg capsule 100 mg PO QHS 06/17/18 [History Confirmed 02/18/24] triamcinolone acetonide 55 mcg nasal spray aerosol (Nasacort) 2 spray intranasal DAILY 12/01/19 [History Confirmed 02/18/24] cholecalciferol (vitamin D3) 50 mcg (2,000 unit) tablet 25 mcg PO DAILY 01/08/21 [History Confirmed 02/18/24] vitamins A,C,S-hdet-rvlrhi 4,296 mcg-226 mg-90 mg capsule (PreserVision AREDS) 1 cap PO BID 12/26/21 [History Confirmed 02/18/24] Lactobacillus acidophilus 250 million cell capsule (Probiotic Acidophilus) 500 mmu cells PO DAILY 06/04/23 [History Confirmed 02/18/24] pantoprazole 40 mg tablet,delayed release 40 mg PO QAM #90 tabs 08/26/23 [Rx Confirmed 02/18/24] cholestyramine (with sugar) 4 gram oral powder 4 g PO 3XW 01/10/24 [History Confirmed 02/18/24] pravastatin 20 mg tablet 20 mg PO QHS 01/10/24 [History Confirmed 02/18/24] hydroxyzine pamoate 25 mg capsule (Vistaril) 25 mg PO TID PRN anxiety #30 caps 02/18/24 [Rx Confirmed 02/18/24] Post menopausal: No Patient : No : No PFSH Medical History Alcohol use Anxiety and depression Cardiology follow-up encounter Diffuse cystic mastopathy of unspecified breast Essential hypertension Fibromyalgia GERD (gastroesophageal reflux disease) Hemorrhoids High cholesterol History of echocardiogram History of edema History of Holter monitoring History of stress test Impaired fasting glucose Low vitamin D level Non-smoker Osteopenia Overactive bladder Post-menopausal Restless legs Shortness of breath on exertion Status post hysteroscopy Syncope Wears hearing aid Surgical History History of appendectomy History of cholecystectomy History of colonoscopy History of esophagogastroduodenoscopy (EGD) History of left heart catheterization (LHC) (~12/08/19) Family History Mother Myocardial infarction, Onset Age: 56 Heart valve replacedFather CAD (coronary artery disease) History of coronary artery bypass surgery Cancer ProstateBrother HypertensionBrother Hypertension Social History Smoking Status: Never smoker alcohol intake: never substance use type: does not use caffeine: Yes what type of physical activity do you participate in: none seatbelt use: always do you feel safe at home: Yes additional social history: - Justino HPI robotic hyst. BSO cysto Details: MALLORY TORRES is a 73 year old who presents for a preoperative exam. She is scheduled for a robotic hysterectomy with BSO and cystoscopy. This is being performed for simple endometrial hyperplasia without atypia. The patient has been extensively counseled on the alternative options. She understands her risk for uterine cancer is 1% but does not want to have to go through follow ups yearly or take progesterone supplementation. Her ultrasound is as follows prior to the D&C that was done this spring: FINDINGS: The uterus is anteverted and is in a midline position. The uterus measures 8.3 cm x 4.5 cm by 2.6 cm. There is a Nabothian cyst of the cervix. The endometrium is thickened and measures 14 mm in thickness, and is hyperechoic with cystic changes. There is no demonstrated endometrial mass. There is no demonstrated myometrial mass. I.U.D. - The patient does not have an I.U.D. The right ovary is non-visualized. The left ovary is non-visualized. There is no fluid in the cul-de-sac. The pre void volume of the bladder was 158 ml. US/Pelvic w/ Transvaginal IMPRESSION: Endometrial thickening. History 2 Elective abortions Hx Para 2 Spontaneous abortions Hx # Term Pregnancies Ectopic pregnancies Hx # Pregnancies Multiple births # of living children Past Pregnancies Del. Date Name GA/Weeks Outcome Route Bth Weight Infant Gen [facility] F[facility] Unknown Isidro Unknown Jacqui ROS Const ROS Unobtainable: All systems reviewed & are unremarkable except as noted in H Resp Resp: Reports system reviewed and no additional complaints, except as documented; Denies cough GI GI: Reports as per HPI Psych Psych: Reports system reviewed and no additional complaints, except as documented Exam Const General: cooperative, healthy appearing, comfortable and no acute distress Resp Effort & Inspection: normal respiratory effort Skin General: no rashes or lesions noted Psych Appearance: grossly normal Speech and Movement: speech and movement normal Coding Level of Care Code Off vis,est,level 4 Diagnoses Endometrial hyperplasia without atypia N85.00 Thickened endometrium R93.89 Assessment and Plan Assessment and Plan (1) Endometrial hyperplasia without atypia: Status: Acute Plan: After discussing the patient's diagnosis and treatment plan options, patient wishes to proceed with surgical management. I have discussed with the patient the risks, benefits, and alternatives of the procedure which include but are not limited to risks of anesthesia, bleeding, infection, possible damage to bowel, bladder, or surrounding vasculature which could lead to additional surgery to evaluate any complications. Patient agrees to procedure and wishes to proceed. ACOG/uptodate references given for additional information regarding procedure. plan for hysterectomy with BSO and cystoscopy on 03/07/24 (2) Thickened endometrium: Status: Acute Comment: EMB benign but scant Medications: New hydroxyzine pamoate (Vistaril) 25 mg PO TID PRN 30 caps 3RF anxiety
--- NOTE | 2024-03-07 09:36 | DCINST_ITS ---
Discharge Instructions Diet Discharge Diet: No restrictions Activity May resume sexual activity in: 6 weeks Weight Bearing Status: Full weight bearing Dressing / Incision Call your doctor if your incision/area has: Continuous Slow Oozing, Sudden Increased Bleeding, Increased Pain/ Swelling, Increased Redness and Foul Smelling Discharge Call your doctor if you observe: Fever of 101 or Higher, Using more than 1 pad per hour, Shortness of breath, Chest pain and Uncontrolled pain Suture Line Care: Avoid Pulling/Pushing and Avoid Pinching/Bending Remove Dressing in: 1 week (if present) Cleanse incision/area with: Soap & Water and Keep Dressing Clean & Dry Follow Up Care Please Follow Up With: Josefina Garcia DO When: Call to make an appointment with your doctor for a postop visit in 2 and 6 weeks Test Results: Test results from this visit will be discussed in further detail at your follow- up appointment, if applicable. Discharge Plan Admission Primary Reason for Your Visit: hysterectomy Attending Provider: Josefina Garcia Primary Care Provider: aMy Caldwell Instructions Print Language: Icelandic Discharge Orders/Prescriptions Prescriptions: New ibuprofen 800 mg tablet 800 mg PO Q8H PRN (Reason: pain) Qty: 30 0RF oxycodone-acetaminophen [Percocet] 5-325 mg tablet 1 tab PO Q4H PRN (Reason: pain) 7 Days Qty: 20 0RF Rx Instructions: 1-2 tabs q 4 hrs as needed for pain metoclopramide HCl [Reglan] 5 mg tablet 5 mg PO Q6H PRN (Reason: nausea and vomiting) 3 Days Qty: 12 0RF Continued triamcinolone acetonide [Nasacort] 55 mcg aerosol,spray 1 spray INTRANASAL BID Rx Instructions: administer into each nostril PreserVision AREDS [id number] thpy-ai-[id number] capsule 1 cap PO BID cholestyramine (with sugar) 4 gram powder 4 g PO MOWEFR Rx Instructions: administer w/meal; avoid other meds within 1hr before or 4-6hr after dose hydroxyzine pamoate [Vistaril] 25 mg capsule 25 mg PO TID PRN (Reason: anxiety) Qty: 30 3RF amlodipine 5 MG tablet 5 mg PO DAILY coenzyme Q10 100 MG capsule 100 mg PO QHS Probiotic Acidophilus 1.5 mg (250 million cell) capsule 500 mmu cells PO DAILY pravastatin 20 mg tablet 20 mg PO QHS Patient Comments: TAKE 1 TABLET BY MOUTH AT BEDTIME cholecalciferol (vitamin D3) [Vitamin D3] 25 mcg (1,000 unit) tablet 150 mcg PO DAILY ibuprofen [Advil] 200 mg tablet 400 mg PO Q6H PRN PRN (Reason: pain) Complete 10-800-165 mg tablet,chewable 1 tab PO QHS PRN (Reason: indigestion) hydrocodone-acetaminophen 5-325 mg tablet 1 tab PO Q8 PRN (Reason: pain) pantoprazole 40 mg tablet,delayed release (DR/EC) 40 mg PO QAM Qty: 90 1RF Referrals / Follow Up: Fast,May, DO [Primary Care Provider] - Disposition Disposition (needs filled in before D/C Order can be placed): Home, Self Care
[2024-03-07] MEDS: Lactated Ringers 1,000 ML 40 ML IV ×3 (09:42→15:08)
[2024-03-07] MEDS: dexAMETHasone 4 MG/ML Vial 8 MG IV (09:43)
[2024-03-07] MEDS: Magnesium 1 GM over 15 mins IV (09:43)
[2024-03-07] MEDS: Scopolamine 1mg/72hr Patch 1 PATCH TD (09:44)
[2024-03-07] MEDS: Phenazopyridine 95 MG Tablet 190 MG PO (09:45)
[2024-03-07] MEDS: Celecoxib 200 MG Capsule 400 MG PO (09:45)
[2024-03-07] MEDS: Acetaminophen 500 MG Tablet 1000 MG PO (09:45)
[2024-03-07] MEDS: Gabapentin 600 MG Tablet PO (09:46)
[2024-03-07 09:59] LABS: Bedside Glucose 76 mg/dL (74-106)
--- NOTE | 2024-03-07 11:25 | HYST_PTH ---
PATIENT: MALLORY TORRES LOC: [facility] – [place] U#:[id number] AGE/SX: 73/F ROOM: RE03/07/[address]: Dr. Josefina Garcia DO : 1950 BED: DIS: 03/07/2024 SPEC #: [id number] RECD: 03/07/24 16:00 STATUS: PAUL LIRIANO #: [id number] AMY: 03/07/24 11:[address]: Josefina Garcia DEPT: SURGICAL PATHOLOGY RECD BY: Amparo Monroe ENTERED: 03/08/24 09:28 SP TYPE: HYSTERECT OTHR DR: Dr. May Caldwell DO Tissues: Uterus, NOS Procedures: Surgery Specimen Level V HEADER OPERATION: ERAS, laparoscopic total robotic hysterectomy bilateral salpingectomy PRE-OP DIAGNOSIS: Endometrial hyperplasia without atypia, thickened endometrium TISSUE SUBMITTED: Uterus, cervix, bilateral fallopian tubes, bilateral ovaries MICROSCOPIC DIAGNOSIS Uterus, hysterectomy: Cervix - No pathologic change. Endometrium - Simple hyperplasia without atypia, Myometrium - adenomyosis and focal intramyometrial fat metaplasia. Right ovary- Corpora albicans. Right fallopian tube- No pathologic change. Left ovary- No pathologic change. Left fallopian tube- No pathologic change. AM/ 03/09/2024 MICROSCOPIC DESCRIPTION Slides are reviewed. GROSS DESCRIPTION Received in fixative is one container labeled with the patient's name and designated uterus. The specimen consists of a uterus with attached cervix and right and left fallopian tubes and ovaries. The uterus with cervix measures 7.0 x 4.0 x 2.5 cm and weighs 35 gm. The ectocervix is unremarkable. The cervical os is oval in contour and grossly unremarkable. The endocervical canal measures 3.0 cm in length and is grossly unremarkable. The triangular endometrial cavity measures 3.5 x 1.8 cm. The velvety, light villegas endometrium measures up to 0.2 cm in thickness. The myometrium measures 1.2 cm in average thickness and is free of mass lesions. The crinkled white villegas ovary measures 2.2 x 1.0 x 0.8cm. Serial sections do not reveal mass lesions. The right fallopian tube measures 5.0cm in length and 0.5cm in average diameter. No tubal or ovarian adhesions are identified. The left ovary is similar in appearance to the right ovary and measures 2.0 x 1.0 x 0.8cm. Serial sections do not reveal mass lesions. The left fallopian tube measures 4.0cm in length and 0.6cm in average diameter. No tubal or ovarian adhesions are identified. Diamond Sizer And Grader sections are submitted in cassettes eight as follows: 1 - anterior cervix, 2 - posterior cervix, 3 & 4 - anterior endometrium wall, totally submitted along with adjacent myometrium, 5 & 6 - posterior endometrium wall, totally submitted along with adjacent myometrium, 7 - right fallopian tube and ovary, 8 - left fallopian tube and ovary. / AM: 03/08/2024 TC:5 CPT: 37776
[2024-03-07] MEDS: Cefazolin 2 GM in 0.9% Normal Saline (100mL Bag) 100 ML IV (12:06)
[2024-03-07] MEDS: Bupivacaine 0.25% 30 ML Vial (13:17)
--- NOTE | 2024-03-07 13:35 | PCM.OPRPT ---
Problems Associated Problem List Diagnoses (1) Endometrial hyperplasia without atypia: Report of Operation Date of Procedure: 03/07/24 Pre-Operative Diagnosis: endometrial hyperplasia, declines conservative therapy Post-Operative Diagnosis: endometrial hyperplasia, declines conservative therapy Surgery/Procedure Performed:: Total robotic hysterectomy, bilateral salpingo-oophorectomy, and cystoscopy Description of Surgical Findings:: Findings: 7 cm size uterus, normal appearing ovaries and tubes. On exploration of the abdominal cavity the uterus, adnexa, bowel, and liver were found to be normal. Cystoscopy showed no evidence of leaking at approximately 250 cc of normal saline, positive ureteral orifices and jet flow are seen and no suture material was appreciated in the bladder. Specimens removed: Uterus and cervix, Bilateral tubes and ovaries Reason for surgery: This is a 73-year-old who presented to my office with history of endometrial hyperplasia without complex features or atypia. She declined conservative progesterone therapy and elected for a hysterectomy. The planned procedure is for a robotic hysterectomy the risks benefits and alternatives were discussed with the patient the patient had a clear understanding of the procedure and a consent form was signed. Surgeon: Josefina Garcia digital media specialist: Jairon Castro Type of Anesthesia: General Estimated Blood Loss (mL): 50cc Description of Procedure: Procedure: The patient was placed in the dorsal low lithotomy position and prepped and draped in the normal sterile fashion both abdominally and in the perineum. Her legs were placed in stirrups a Montes catheter was inserted into the urethra without difficulty. A weighted speculum was placed in the vagina and a single-tooth tenaculum was used to grasp the anterior lip of the cervix. An advincula uterine manipulator was inserted through the cervix without complication. It was then tied into place at the 2 and 10:00 locations on the cervix. Gloves were changed and attention was turned towards the abdomen. Approximately 23 cm above the pubic symphysis in the midline, and after Marcaine injection, a 8 mm incision was made. An 8 mm trocar was inserted through the laparoscope, then inserted into the abdomen under direct visualization using the laparoscope. Good abdominal placement was noted and no complications were appreciated. An air seal device was utilized to create pneumoperitoneum. At 12 cm lateral to the midline on the left and right sides 8 mm accessory ports were placed. Next a left upper quadrant 8 mm admissions assistant port site was placed. The patient was placed in steep Trendelenburg position. The robot was docked. The hysterectomy was initiated first by taking down the round ligament on each side using the vessel sealer device. The peritoneum between the round ligament and the IP ligament was opened using electrocautery and extended the length of the IP ligament. The IP ligament was then taken down using the vessel sealer device. These areas were freed without complication the broad ligament was then and taken down using the vessel sealer device. Next the bladder flap was taken down without complication. This was done using monopolar cautery to the level of the cervical vaginal junction. After the bladder flap was created, uterine vessels were then isolated and cauterized using the vessel sealer device and EndoShears. At this point the uterine vessels were taken down further starting from the ascending branch, dissecting along the edges of the cervix to the level of the cervical vaginal junction with hemostasis appreciated. The cervical vaginal junction was then using monopolar cautery in a circumferential pattern across the superior aspect of the cervix. The specimen was delivered through the vagina and sent to pathology. The remaining vaginal cuff was then closed using a V lock suture. This was performed in a running technique. Excellent hemostasis was obtained and good closure was noted. Irrigation was then performed. All operative sites were noted to be hemostatic. A cystoscopy was performed with a 70 degree cystoscope through the urethra into the bladder without complication. The bladder was instilled with approximately 250 cc of normal saline. Intraoperative images were made. Ureteral orifices and jets were identified. No suture material was appreciated in the bladder. The bladder was then drained and cystoscope was removed. The abdominal cavity was again examined using the laparoscope after the robot was undocked. All operative sites were noted to be hemostatic. The trochars were removed under direct visualization without complication and pneumoperitoneum was reduced. At this point the skin was then closed using 4-0 Monocryl subcuticular stitch and sealed with surgical glue. The patient tolerated the procedure well sponge lap and needle counts were correct x2 the patient was taken to the recovery room in stable condition. Complications none Admit VTE Documentation VTE Present on Admission: Yes VTE Mechan Device Prophylaxis: SCD's VTE Pharm Prophylaxis ordered?: No Multi Select Codes Urinary/Genital Urinary/Genital CPT Codes: 39079 Cystoscopy and 30971 TLH+BS/O <250gr uterus
[2024-03-07] MEDS: oxyCODONE 5 MG Tablet PO (16:14)
== END 2024-03-07 18:01 | disposition home or self-care (01) ==
LOC: SDC 09:14 → AC 09:14
PROVIDERS: Anesthesiology; PCP Internal Medicine; Referring Provider Obstetrics & Gynecology; Visit Provider Obstetrics & Gynecology
PROC: 0UT94ZZ Resection of Uterus, Percutaneous Endoscopic Approach (ICD-10-PCS; CPT 58571; principal; 2024-03-07 11:10)
DX: N85.01 Benign endometrial hyperplasia (principal); I10 Essential (primary) hypertension; E78.00 Pure hypercholesterolemia, unspecified; K21.9 Gastro-esophageal reflux disease without esophagitis; N83.291 Other ovarian cyst, right side; Z79.899 Other long term (current) drug therapy
CPT/HCPCS: 58571; S2900; 00840; 80053; 82962; 83735; 85027; 86850; 86900; 86901; 88307; 93005; J7120; J2405; J3475

== ENCOUNTER → 2024-05-11 | Outpatient (CLI) | payer MEDICARE, SELFPAY ==
--- NOTE | 2024-05-11 11:40 | BI_ITS ---
MAMMOGRAPHY - BILATERAL SCREENING REASON FOR EXAM: Female, 73 years old. Routine annual screening examination. PERTINENT HISTORY: Aunts with breast cancer. Occasional left lateral breast tenderness. TECHNIQUE: Digital bilateral breast ed (3D mammographic acquisition) in the CC and MLO projections. 2-D mediolateral oblique (MLO) and craniocaudad (CC) views of both breasts were obtained. CAD: Full Field Digital Mammography with Computer Added Detection was performed. COMPARISON: Comparison is made with prior study dated May 04, 2023 and April 03, 2022 FINDINGS: Breast Composition: The breasts are heterogeneously dense, which may obscure small masses. There are no dominant masses or suspicious calcifications. Stable 6 mm well-defined nodule in the anterior upper lateral aspect of the left breast. Prior sonogram demonstrated this to be a small lymph node. Stable bilateral axillary lymph nodes. No other significant abnormalities are identified. There has been no significant change since the prior study. BI/SCRN MAMM (CAD)W/ED BILAT IMPRESSION: Stable bilateral screening mammogram. Yearly follow-up mammogram recommended. (A) ASSESSMENT CATEGORY: BIRADS Category 2: Benign. A letter regarding these results will be sent to the patient by the facility within 30 days. Approximately 10% of breast cancers are not detected by mammography. A normal mammogram should not delay biopsy of a clinically suspicious abnormality. [id number] Electronically Signed: Ru Hogue MD at 12:55 EDT ,
== END | disposition home or self-care (01) ==
PROVIDERS: PCP Internal Medicine; Referring Provider Internal Medicine; Visit Provider Internal Medicine
DX: Z12.31 Encounter for screening mammogram for malignant neoplasm of breast (principal); Z80.3 Family history of malignant neoplasm of breast
CPT/HCPCS: 77063; 77067

== ENCOUNTER → 2024-05-23 | Outpatient (CLI) | payer MEDICARE, SELFPAY | END | disposition home or self-care (01) | LOC: PSN 09:06 | PROVIDERS: PCP Internal Medicine; Referring Provider Internal Medicine; Visit Provider Internal Medicine | DX: R06.09 Other forms of dyspnea (principal) | CPT/HCPCS: 94060; 94726; 94729 ==

== ENCOUNTER → 2024-06-23 | Outpatient (CLI) | payer MEDICARE, SELFPAY ==
--- NOTE | 2024-06-23 08:30 | CT_ITS ---
STUDY: CTA CHEST REASON FOR EXAM: Female, 73 years old. Hypoxia RADIATION DOSAGE (If Supplied By Facility): CTDIvol = ( 8.35 ) mGy, DLP = ( 410.35 ) mGycm TECHNIQUE: The examination was performed with the intravenous administration of IV 100mL Isovue-370. Post-processing of the angiographic images was performed, with multiplanar reformation and 3D reconstruction. Individualized dose optimization techniques were used for this CT. COMPARISON: Comparison is made with prior study dated February 13, 2015. FINDINGS: Normal enhancement of the main pulmonary artery and right and left pulmonary arteries. Normal enhancement of the bilateral peripheral pulmonary arteries. There is no demonstrated pulmonary embolism. There is mild degree of atherosclerotic calcification of the aortic arch with tortuosity. There is no demonstrated aortic dissection. Normal heart and pericardium. Normal mediastinum. Normal hilar regions. Normal visualized trachea and bronchi. The lungs are well expanded. Stable mild scarring at the right lung apex. Normal pleura. Normal chest wall structures. There are degenerative changes of thoracic spine. Findings suggestive of a hemangioma of the L2 vertebrae. The patient is status post cholecystectomy. CT/CTA Chest W/WO Contrast IMPRESSION: No acute abnormality is seen. Electronically Signed: Ru Hogue MD at 10:34 EDT ,
[2024-06-23 08:50] LABS: CREATININE FINGERSTICK < 1.0 mg/dL (0.55-1.02); EGFR FINGERSTICK > 60.0000 mL/min (>60)
== END | disposition home or self-care (01) ==
LOC: CT 08:23
PROVIDERS: PCP Internal Medicine; Referring Provider Internal Medicine; Visit Provider Internal Medicine
DX: R09.02 Hypoxemia (principal)
CPT/HCPCS: 71275; Q9967

== ENCOUNTER → 2024-08-29 | Outpatient (CLI) | payer MEDICARE, SELFPAY ==
[2024-08-29 11:12] LABS: Erythrocyte Sedimentation Rate 1 mm/hr (0-30)
[2024-08-29 11:46] LABS: CPK Total, Creatine Kinase 112 U/L (26-192); Follicle Stimulating Hormone 107.9 mIU/mL; Luteinizing Hormone 43.7 mIU/mL
[2024-08-30 14:09] LABS: Anti-Centromere B Ab <0.2 AI (0.0-0.9); Anti-Chromatin <0.2 AI (0.0-0.9); Anti-Jo <0.2 AI (0.0-0.9); Anti-Scleroderma-70 AB <0.2 AI (0.0-0.9); Anti-dsDNA Ab <1 IU/mL (0-9); RNP Ab 0.2 AI (0.0-0.9); SJOGREN'S Anti-SS-A test < 0.2 AI (0.0-0.9); SJOGREN'S Anti-SS-B test < 0.2 AI (0.0-0.9); Smith Ab <0.2 AI (0.0-0.9)
[2024-09-07 06:09] LABS: ALDOSTERONE/RENIN RATIO 15.7 (0.0-30.0); Adrenocorticotropic Hormone 13.1 pg/mL (7.2-63.3); Albumin 3.6 g/dL (2.9-4.4); Aldolase 5.6 U/L (3.3-10.3); Aldosterone, Serum 5.6 ng/dL (0.0-30.0); Alpha-1-Globulins 0.2 g/dL (0.0-0.4); Alpha-2-Globulins 0.7 g/dL (0.4-1.0); Cytoplasmic Ab (C-ANCA) <1:20 titer (Neg:<1:20); Dopamine, Pl <30 pg/mL (0-48); Epinephrine, Pl 28 pg/mL (0-62); Gamma Globulin 0.8 g/dL (0.4-1.8); Gastrin, Serum 82 pg/mL (0-115); IgG, Quant 854 mg/dL (586-1602); Immunoglobulin A 203 mg/dL (64-422); Immunoglobulin G, Subclass 1 327 mg/dL (248-810); Immunoglobulin G, Subclass 2 378 mg/dL (130-555); Immunoglobulin G, Subclass 3 81 mg/dL (15-102); Immunoglobulin G, Subclass 4 51 mg/dL (2-96); Immunoglobulin M 58 mg/dL (26-217); Norepinephrine, Pl 341 pg/mL (0-874); PROEL- TOTAL PROTEIN 6.3 g/dL (6.0-8.5); Perinuclear Ab (P-ANCA) <1:20 titer (Neg:<1:20); Renin, Plasma 0.356 ng/mL/hr (0.167-5.380)
== END | disposition home or self-care (01) ==
PROVIDERS: PCP Internal Medicine; Referring Provider Internal Medicine Gastroenterology; Visit Provider Internal Medicine Gastroenterology
DX: R19.8 Other specified symptoms and signs involving the digestive system and abdomen (principal); K29.60 Other gastritis without bleeding; Z91.018 Allergy to other foods
CPT/HCPCS: 36415; 82024; 82085; 82088; 82384; 82533; 82550; 82784; 82787; 82941; 83001; 83002; 84165; 84244; 85652; 86037; 86140; 86225; 86235; 86334

== ENCOUNTER → 2025-03-10 | Outpatient (CLI) | payer MEDICARE, SELFPAY ==
--- NOTE | 2025-03-10 | LES_PTH ---
PATIENT: MALLORY TORRES LOC: [facility] U#:[id number] AGE/SX: 74/F ROOM: RE03/10/[address]: Dr. Mani Berumen MD : [id number] BED: DIS: 03/10/2025 SPEC #: [id number] RECD: 03/10/25 11:51 STATUS: PAUL RENikki #: [id number] AMY: 03/10/25 00:[address]: Mani Berumen DEPT: SURGICAL PATHOLOGY RECD BY: Eliseo Quesada ENTERED: 03/12/25 08:59 SP TYPE: Lesion OTHR DR: Dr. May Caldwell, DO Tissues: A - Skin of face, NOS Procedures: Surgery Specimen Level IV HEADER OPERATION: Permanent pathology PRE-OP DIAGNOSIS: Left buccal neoplasm TISSUE SUBMITTED: A- Mouth biopsy MICROSCOPIC DIAGNOSIS A. 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 MICROSCOPIC DESCRIPTION Slides are reviewed. GROSS DESCRIPTION A. Received in formalin in a container labeled with the patient's name, date of , and mouth with the accompanying paperwork indicating, L buccal neoplasm is a 0.5 x 0.3 x 0.3 cm fragment of unoriented soft tissue. 1 surface is white-crenshaw, smooth, and rounded, possibly consistent with mucosa. No distinct lesion is grossly recognized. The opposing surface is roughened and cauterized, possibly consistent with resection margin, and inked green. The specimen is submitted entirely in A1. [facility] 03-12-2025 CPT:58616
== END | disposition home or self-care (01) ==
LOC: LABSPEC 11:49
PROVIDERS: PCP Internal Medicine; Referring Provider Otolaryngology; Visit Provider Otolaryngology
DX: C06.9 Malignant neoplasm of mouth, unspecified (principal)
CPT/HCPCS: 88305

== ENCOUNTER → 2025-05-15 | Outpatient (CLI) | payer MEDICARE, SELFPAY ==
--- NOTE | 2025-05-15 07:54 | BI_ITS ---
EXAM: SCRN MAMM (CAD)W/ED BILAT DATE: 05/15/2025 CLINICAL HISTORY: F, Age 74 y/o , BILATERAL MAMMOGRAM SCREENING - Aunts with breast cancer. TECHNIQUE: SCRN MAMM (CAD)W/ED BILAT COMPARISON: Prior exam(s) dated May 11, 2024.. FINDINGS: TISSUE DENSITY: The breasts are heterogeneously dense, which may obscure small masses. Bilateral Breast Mammographic Findings: No significant masses, calcifications or other abnormalities are identified. Stable bilateral axillary lymph nodes. Stable 6 mm well-defined nodule in the anterior upper lateral aspect of the left breast. Prior sonogram demonstrated this to be a small lymph node. No suspicious masses, areas of developing architectural distortion, or suspicious calcifications. There has been no significant interval change. BI/SCRN MAMM (CAD)W/ED BILAT IMPRESSION: Stable examination. OVERALL FINAL ASSESSMENT BI-RADS 2: BENIGN RECOMMENDATION: Routine annual follow-up in 1 Year A letter with findings and recommendations will be mailed to the patient. Reading Location: [facility]
--- NOTE | 2025-05-15 08:00 | BD_ITS ---
PROCEDURE: DEXA BONE DENSITY STUDY 05/15/2025 REASON FOR EXAM: F, age 74 y/o . Postmenopausal. TECHNIQUE: DEXA BONE DENSITY STUDY COMPARISON: Prior study dated October 14, 2022. FINDINGS: BMD and T-SCORES Lumbar spine: 0.837 g/cm2, T-score -1.6 Levels: L1 through L4 Change from prior: Loss of 3.9%. Left femoral neck: 0.647 g/cm2, T-score -1.8 Femoral neck comparison data not recommended for monitoring change. Left total hip: 0.685 g/cm2, T-score -2.1 Change from prior: Loss of 2.5%. Right femoral neck: 0.640 g/cm2, T-score -1.9 Femoral neck comparison data not recommended for monitoring change. Right total hip: 0.630 g/cm2, T-score -2.6 Change from prior: Loss of 4.5%. The World Health Organization has defined the following categories based on bone density: Normal bone density: T-score equal to or greater than -1.0 Osteopenia: T-score between -1.0 and -2.5 Osteoporosis: T-score equal to or less than -2.5 The patient does meet the pharmacological treatment recommendations for prevention of osteoporosis. BD/Dexa Bone Density Study IMPRESSION: OSTEOPOROSIS. Recommend follow-up as clinically warranted. Reading Location: [id number]
== END | disposition home or self-care (01) ==
LOC: OPBD 07:53
PROVIDERS: PCP Internal Medicine; Referring Provider Internal Medicine; Visit Provider Internal Medicine
DX: Z12.31 Encounter for screening mammogram for malignant neoplasm of breast (principal); Z78.0 Asymptomatic menopausal state
CPT/HCPCS: 77063; 77067; 77080

== ENCOUNTER → 2025-05-28 | Outpatient (CLI) | payer MEDICARE, SELFPAY ==
--- NOTE | 2025-05-28 16:50 | CT_ITS ---
PROCEDURE: ABDOMEN/PELVIS WITH CONTRAST 05/28/2025 REASON FOR EXAM: ABD PAIN Abdominal pain for several months. TECHNIQUE: ABDOMEN/PELVIS WITH CONTRAST Coronal and Sagittal reconstruction series were provided. CONTRAST: Isovue 370 VOLUME: 100 mL One or more dose reduction techniques were used (e.g., Automated exposure control, adjustment of the mA and/or kV according to patient size, use of iterative reconstruction technique. RADIATION DOSE SUMMARY: CTDlvol: 15.75 mGy DLP: 850.37 mGycm COMPARISON: Prior study dated November 15, 2023. FINDINGS: Lung bases: Lung bases are clear. Liver: Diffuse fatty infiltration. Gallbladder: Surgically absent. Spleen: Normal size. Pancreas: Diffuse fatty atrophy. Adrenals: Unremarkable. Kidneys: Stable 1.2 cm cyst in the lateral aspect of the right kidney. Bladder: Unremarkable Reproductive Organs: Prior hysterectomy. Adnexal regions are unremarkable. Bowel: Colonic diverticulosis without diverticulitis. Appendix: Status post appendectomy. Lymph nodes: Unremarkable. Vasculature: Mild diffuse atherosclerotic calcifications are noted. Peritoneum / Retroperitoneum: Unremarkable Bones: Degenerative changes of the spine. Findings suggestive of hemangioma of the L4 and L1 vertebrae. CT/Abdomen/Pelvis WITH Contrast IMPRESSION: Fatty infiltration of the liver. Status post cholecystectomy, hysterectomy and appendectomy. Sigmoid diverticulosis with no radiographic evidence of diverticulitis. Reading Location: [id number]
== END | disposition home or self-care (01) ==
LOC: CT 16:46
PROVIDERS: PCP Internal Medicine; Referring Provider Internal Medicine Gastroenterology; Visit Provider Internal Medicine Gastroenterology
DX: R10.9 Unspecified abdominal pain (principal); R19.8 Other specified symptoms and signs involving the digestive system and abdomen; K29.60 Other gastritis without bleeding
CPT/HCPCS: 74177; Q9967

== ENCOUNTER → 2025-08-06 | Outpatient (CLI) | payer MEDICARE, SELFPAY ==
[2025-08-06 09:46] LABS: Hematocrit 39.1 % (37-47); Hemoglobin 13.1 g/dL (12.0-15.0); Immature Granulocytes Count 0.010 X10^3/uL (0.0-0.0); Mean Corp Hgb Conc 33.5 g/dL (32-36); Mean Corpuscular Volume 89.7 fL (81-99); Mean Platelet Vol. 11.1 fl (6.2-12.0); NRBC Flagged by Analyzer 0 % (0-5); Platelet Count 254 K/mm3 (150-450); RBC Distribution Width CV 14.2 % (11.6-14.6); RBC Distribution Width SD 46.7 fl (35.1-43.9); Red Blood Count 4.36 M/mm3 (4.2-5.4); White Blood Count 5.8 K/mm3 (4.4-11.0)
[2025-08-06 11:04] LABS: AST(SGOT) 29 U/L (<=31); Alanine Aminotransfer ALT/SGPT 18 U/L (<=34); Albumin, Serum 4.2 g/dL (3.4-4.8); Alkaline Phosphatase 98 U/L (35-104); Anion Gap 11 (5-15); BUN 16 mg/dL (4-19); BUN/Creat Ratio 21.9 RATIO (10-20); Calcium,Total 9.5 mg/dL (7.6-11.0); Carbon Dioxide 26.0 mmol/L (21.0-32.0); Chloride 106 mmol/L (98-108); Cholesterol 212 mg/dL (<=200); Globulin 2.8 g/dL (2.2-4.2); Glucose 99 mg/dL (70-99); Low Density Lipoprotein Calc. 132 mg/dL; Potassium 4.3 mmol/L (3.3-5.1); Triglycerides 153 mg/dL; Very Low Density Lipoprotein 31 mg/dL (5-40); cholesterol:hdl ratio screen 4.00
== END | disposition home or self-care (01) ==
LOC: LAB 08:14
PROVIDERS: PCP Internal Medicine; Referring Provider Internal Medicine; Visit Provider Internal Medicine
DX: R73.09 Other abnormal glucose (principal); E78.00 Pure hypercholesterolemia, unspecified
CPT/HCPCS: 36415; 80053; 80061; 83036; 85025